=== PATIENT | female | born 1955 | race Caucasian/White ===

== ENCOUNTER 2016-04-24 19:25 | Inpatient (IN) | payer MEDICARE, OTHER ==
[2016-04-24] MEDS ORDERED: NALOXONE 0.4 MG/ML 1 ML VIAL IV STA (19:37)
[2016-04-24] MEDS ORDERED: ETOMIDATE 2 MG/ML 10 ML VIAL IVP STA (19:37)
[2016-04-24] MEDS ORDERED: SUCCINYLCHOLINE CHLORIDE VIAL 200 MG/10 ML VIAL IV STA (19:37)
[2016-04-24] MEDS ORDERED: SODIUM CHLORIDE 0.9% 500 ML IV ONE (19:43)
[2016-04-24] MEDS ORDERED: PROPOFOL 500 MG in EMPTY BAG 1 BAG IV ONE (19:43)
[2016-04-24] MEDS: PROPOFOL 500 MG in EMPTY BAG 1 BAG IV SCH ×3 (19:50→23:25)
--- NOTE | 2016-04-24 19:51 | ED ---
Altered Mental Status HPI - General Chief Complaint: Altered Mental Status Stated Complaint: Mental Status Change Time Seen by Provider: 04/24/16 19:43 Source: EMS, RN notes reviewed Mode of arrival: EMS Limitations: altered mental status - History of Present Illness Initial Comments: This is a 60-year-old female with a history of CHF, hypertension, hyperlipidemia , seizure who presents to the emergency department for mental status changes. Per nursing staff at [facility] she's been having worsening mental status changes over the last few days however last couple of hours she became unresponsive. She had blood work performed 2 days ago that showed a hemoglobin of 7.6 which is down from her baseline of 10. There were no other reported history from the [facility]. The patient did come with a chest x-ray that showed pneumonia but that was back on the of this month. The patient will moan to deep sternal rub and no blood pressure however will not speak or answer questions. She does appear pale at bedside. The patient was intubated immediately upon arrival because of low GCS and inability to protect her airway. - Related Data Home Medications Medication Instructions Recorded Confirmed Magnesium Oxide [Mag-Ox] 400 mg PO DAILY 06/24/14 04/24/16 Acetaminophen Tab [Tylenol] 325 mg PO DAILY PRN 02/24/16 04/24/16 Divalproex ER [Depakote ER] 1,000 mg PO HS 02/24/16 04/24/16 Divalproex ER [Depakote ER] 500 mg PO DAILY 02/24/16 04/24/16 LORazepam [Ativan] 1 mg PO Q6H PRN 02/24/16 04/24/16 Loratadine/Pseudoephedrine 1 tab PO BID PRN 02/24/16 04/24/16 [Alavert D-12 Allergy-Sinus Tab] OLANZapine 20 mg PO HS 02/24/16 04/24/16 Oxybutynin Chloride 5 mg PO BID 02/24/16 04/24/16 fluvoxaMINE [Luvox] 50 mg PO BID 02/24/16 04/24/16 Magnesium Hydroxide [Milk of 2,400 mg PO Q72H PRN 04/24/16 04/24/16 Magnesia] Sennosides-Docusate Sodium 1 tab PO HS 04/24/16 04/24/16 [Senokot-S] Previous Rx's Medication Instructions Recorded Desmopressin [Ddavp] 0.4 mg PO HS #60 tab 12/31/14 Levothyroxine Sodium [Synthroid] 88 mcg PO DAILY #30 tab 12/31/14 Ranitidine HCl 150 mg PO BID #60 tablet 12/31/14 Allergies Allergy/AdvReac Type Severity Reaction Status Date / Time aspirin AdvReac Nausea & Verified 04/24/16 19:29 Vomiting Review of Systems ROS Statement: Those systems with pertinent positive or pertinent negative responses have been documented in the HPI. ROS Other: All systems not noted in ROS Statement are negative. Past Medical History Past Medical History: Asthma, Diabetes Mellitus, Hyperlipidemia, Hypertension, Thyroid Disorder Additional Past Medical History / Comment(s): Parkinson's -like symptoms due to medication, diabetes insipidus. History of Any Multi-Drug Resistant Organisms: None Reported Past Surgical History: Appendectomy Additional Past Surgical History / Comment(s): Poor historian. Additional Medical Hx: Parkinson's Disease; Additional Past Anesthesia/Blood Transfusion Reaction / Comment(s): Unknown Past Psychological History: Schizophrenia Additional Psychological History / Comment(s): Patient receives outpatient counselling and sees Dr. Muse. Smoking Status: Never smoker Past Alcohol Use History: None Reported Additional Past Alcohol Use History / Comment(s): Patient denies any history of smoking, medical marijuana or marijuana use or alcohol use. Patient is single and has no children. Past Drug Use History: None Reported - Past Family History Father Family Medical History: CVA/TIA Additional Family Medical History / Comment(s): Patient states her father in his 80s from his stroke and also her mother in her 80s from a stroke. She has one brother and 2 sisters which she has no contact with. Patient has a guardian Analilia Blood. General Exam - General Exam Comments Initial Comments: Constitutional: Awake alert Appears comfortable, patient appears pale Head: Normocephalic atraumatic Eyes: no conjunctival injection, there is conjunctival pallor No scleral icterus EOMI Neck: No JVD Supple Heart: Regular rate rhythm normal S1-S2 no murmurs Lungs: Clear to auscultation bilaterally No wheezing No rales Abdomen: Soft nondistended nontender Extremities: Non edematous DP pulses intact Radial pulses intact Neuro: Patient is minimally responsive to sternal rub. She has a GCS of 5-6 No focal neurologic deficits Psych: Appropriate mood and affect Limitations: altered mental status Course Vital Signs 04/24/16 04/24/16 04/24/16 19:29 19:42 19:58 Temperature 97.2 F L Pulse Rate 84 84 80 Respiratory 16 14 14 Rate Blood Pressure 97/51 128/58 122/70 O2 Sat by Pulse 90 L 100 99 Oximetry 04/24/16 04/24/16 04/24/16 20:08 20:13 21:54 Temperature Pulse Rate 84 88 83 Respiratory 14 14 14 Rate Blood Pressure 97/55 109/67 96/53 O2 Sat by Pulse 100 100 100 Oximetry - Reevaluation(s) Reevaluation #1: 04/24/16 19:52 EKG showing normal sinus rhythm with a rate of 83. No ST segment changes or T- wave inversions. QTC is 408. Other intervals are normal. No ectopy. Procedures - Intubation Time Out Performed: Yes Sedative: Etomidate Mg Given: 10 Paralytic: Succinylcholine Mg Given: 100 Laryngoscope: Genevieve Size: 4 ET Tube Size: 7.5 ET Tube Uncuffed: No Tube Secured Depth (cm): 22 Tube Secured Location: lips Tube Placement Confirmation: visualized tube passing through cords, equal breath sounds bilaterally, no breath sounds over epigastrium, confirmation by capnometry Patient Tolerated Procedure: well Intubation Complications: none Medical Decision Making - Medical Decision Making This is a 60-year-old female presents emergency department for encephalopathy. She is found to be anemic with a hemoglobin of 6. She is guaiac negative. She was given 2 units of blood. She is currently on the ventilator because of airway protection your encephalopathy. I spoke with Dr. Gibbs except admission. Dr. Villalta was updated that the patient will go to ICU. - Lab Data Result diagrams: 04/24/16 20:05 04/24/16 20:05 Lab Results 04/24/16 04/24/16 04/24/16 Range/Units 20:05 20:05 20:05 WBC (3.8-10.6) k/uL RBC (3.80-5.40) m/uL Hgb (11.4-16.0) gm/dL Hct (34.0-46.0) % MCV (80.0-100.0) fL MCH (25.0-35.0) pg MCHC (31.0-37.0) g/dL RDW (11.5-15.5) % Plt Count (150-450) k/uL Neutrophils % (Manual) % Band Neutrophils % % Lymphocytes % (Manual) % Monocytes % (Manual) % Metamyelocytes % % Myelocytes % % Promyelocytes % % Neutrophils # (Manual) (1.3-7.7) k/uL Lymphocytes # (Manual) (1.0-4.8) k/uL Monocytes # (Manual) (0-1.0) k/uL Nucleated RBCs (0-0) /100 WBC Polychromasia Hypochromasia Poikilocytosis Basophilic Stippling Anisocytosis Macrocytosis PT 11.8 (9.0-12.0) sec INR 1.2 (<1.1) APTT 23.4 (22.0-30.0) sec Sample Site ABG pH (7.35-7.45) ABG pCO2 (35-45) mmHg ABG pO2 (83-108) mmHg ABG HCO3 (21-25) mmol/L ABG Total CO2 (19-24) mmol/L ABG O2 Saturation (94-97) % ABG Base Excess mmol/L FiO2 % Sodium 134 L (137-145) mmol/L Potassium 5.9 H (3.5-5.1) mmol/L Chloride 89 L (98-107) mmol/L Carbon Dioxide 38 H (22-30) mmol/L Anion Gap 7 mmol/L BUN 48 H (7-17) mg/dL Creatinine 0.80 (0.52-1.04) mg/dL Est GFR (MDRD) Af Amer >60 (>60 ml/min/1.73 sqM) Est GFR (MDRD) Non-Af >60 (>60 ml/min/1.73 sqM) Glucose 114 H (74-99) mg/dL Plasma Lactic Acid Caleb (0.7-2.0) mmol/L Calcium 9.2 (8.4-10.2) mg/dL Magnesium 2.9 H (1.6-2.3) mg/dL Total Bilirubin 1.2 (0.2-1.3) mg/dL AST 19 (14-36) U/L ALT 15 (9-52) U/L Alkaline Phosphatase 84 (38-126) U/L CK-MB (CK-2) 0.5 (0.0-2.4) ng/mL Troponin I (0.000-0.034) ng/mL NT-Pro-B Natriuret Pep pg/mL Total Protein 8.3 H (6.3-8.2) g/dL Albumin 2.7 L (3.5-5.0) g/dL Lipase 35 (23-300) U/L Urine Color Urine Appearance (Clear) Urine pH (5.0-8.0) Ur Specific Hope (1.001-1.035) Urine Protein (Negative) Urine Glucose (UA) (Negative) Urine Ketones (Negative) Urine Blood (Negative) Urine Nitrate (Negative) Urine Bilirubin (Negative) Urine Urobilinogen (<2.0) mg/dL Ur Leukocyte Esterase (Negative) Urine RBC (0-5) /hpf Urine WBC (0-5) /hpf Urine Bacteria (None) /hpf Hyaline Casts (0-2) /lpf Urine Mucus (None) /hpf Stool Occult Blood (Negative) Salicylates <1.0 mg/dL Urine Opiates Screen (NotDetected) Ur Oxycodone Screen (NotDetected) Urine Methadone Screen (NotDetected) Ur Propoxyphene Screen (NotDetected) Acetaminophen <10.0 ug/mL Ur Barbiturates Screen (NotDetected) U Tricyclic Antidepress (NotDetected) Ur Phencyclidine Scrn (NotDetected) Ur Amphetamines Screen (NotDetected) U Methamphetamines Scrn (NotDetected) U Benzodiazepines Scrn (NotDetected) Urine Cocaine Screen (NotDetected) U Marijuana (THC) Screen (NotDetected) 04/24/16 04/24/16 04/24/16 Range/Units 20:05 20:05 20:05 WBC 11.1 H (3.8-10.6) k/uL RBC 1.76 L (3.80-5.40) m/uL Hgb 6.0 L* D (11.4-16.0) gm/dL Hct 18.2 L* (34.0-46.0) % MCV 103.7 H (80.0-100.0) fL MCH 34.1 (25.0-35.0) pg MCHC 32.9 (31.0-37.0) g/dL RDW 21.1 H (11.5-15.5) % Plt Count 123 L (150-450) k/uL Neutrophils % (Manual) 57.5 % Band Neutrophils % 8.5 % Lymphocytes % (Manual) 15.0 % Monocytes % (Manual) 4.5 % Metamyelocytes % 11.0 % Myelocytes % 3.0 % Promyelocytes % 0.5 % Neutrophils # (Manual) 7.3 (1.3-7.7) k/uL Lymphocytes # (Manual) 1.7 (1.0-4.8) k/uL Monocytes # (Manual) 0.5 (0-1.0) k/uL Nucleated RBCs 19 H (0-0) /100 WBC Polychromasia Present Hypochromasia Slight Poikilocytosis Slight Basophilic Stippling Present Anisocytosis Moderate Macrocytosis Marked PT (9.0-12.0) sec INR (<1.1) APTT (22.0-30.0) sec Sample Site ABG pH (7.35-7.45) ABG pCO2 (35-45) mmHg ABG pO2 (83-108) mmHg ABG HCO3 (21-25) mmol/L ABG Total CO2 (19-24) mmol/L ABG O2 Saturation (94-97) % ABG Base Excess mmol/L FiO2 % Sodium (137-145) mmol/L Potassium (3.5-5.1) mmol/L Chloride (98-107) mmol/L Carbon Dioxide (22-30) mmol/L Anion Gap mmol/L BUN (7-17) mg/dL Creatinine (0.52-1.04) mg/dL Est GFR (MDRD) Af Amer (>60 ml/min/1.73 sqM) Est GFR (MDRD) Non-Af (>60 ml/min/1.73 sqM) Glucose (74-99) mg/dL Plasma Lactic Acid Caleb 0.9 (0.7-2.0) mmol/L Calcium (8.4-10.2) mg/dL Magnesium (1.6-2.3) mg/dL Total Bilirubin (0.2-1.3) mg/dL AST (14-36) U/L ALT (9-52) U/L Alkaline Phosphatase (38-126) U/L CK-MB (CK-2) (0.0-2.4) ng/mL Troponin I <0.012 (0.000-0.034) ng/mL NT-Pro-B Natriuret Pep pg/mL Total Protein (6.3-8.2) g/dL Albumin (3.5-5.0) g/dL Lipase (23-300) U/L Urine Color Urine Appearance (Clear) Urine pH (5.0-8.0) Ur Specific Hope (1.001-1.035) Urine Protein (Negative) Urine Glucose (UA) (Negative) Urine Ketones (Negative) Urine Blood (Negative) Urine Nitrate (Negative) Urine Bilirubin (Negative) Urine Urobilinogen (<2.0) mg/dL Ur Leukocyte Esterase (Negative) Urine RBC (0-5) /hpf Urine WBC (0-5) /hpf Urine Bacteria (None) /hpf Hyaline Casts (0-2) /lpf Urine Mucus (None) /hpf Stool Occult Blood (Negative) Salicylates mg/dL Urine Opiates Screen (NotDetected) Ur Oxycodone Screen (NotDetected) Urine Methadone Screen (NotDetected) Ur Propoxyphene Screen (NotDetected) Acetaminophen ug/mL Ur Barbiturates Screen (NotDetected) U Tricyclic Antidepress (NotDetected) Ur Phencyclidine Scrn (NotDetected) Ur Amphetamines Screen (NotDetected) U Methamphetamines Scrn (NotDetected) U Benzodiazepines Scrn (NotDetected) Urine Cocaine Screen (NotDetected) U Marijuana (THC) Screen (NotDetected) 04/24/16 04/24/16 04/24/16 Range/Units 20:05 20:15 20:15 WBC (3.8-10.6) k/uL RBC (3.80-5.40) m/uL Hgb (11.4-16.0) gm/dL Hct (34.0-46.0) % MCV (80.0-100.0) fL MCH (25.0-35.0) pg MCHC (31.0-37.0) g/dL RDW (11.5-15.5) % Plt Count (150-450) k/uL Neutrophils % (Manual) % Band Neutrophils % % Lymphocytes % (Manual) % Monocytes % (Manual) % Metamyelocytes % % Myelocytes % % Promyelocytes % % Neutrophils # (Manual) (1.3-7.7) k/uL Lymphocytes # (Manual) (1.0-4.8) k/uL Monocytes # (Manual) (0-1.0) k/uL Nucleated RBCs (0-0) /100 WBC Polychromasia Hypochromasia Poikilocytosis Basophilic Stippling Anisocytosis Macrocytosis PT (9.0-12.0) sec INR (<1.1) APTT (22.0-30.0) sec Sample Site ABG pH (7.35-7.45) ABG pCO2 (35-45) mmHg ABG pO2 (83-108) mmHg ABG HCO3 (21-25) mmol/L ABG Total CO2 (19-24) mmol/L ABG O2 Saturation (94-97) % ABG Base Excess mmol/L FiO2 % Sodium (137-145) mmol/L Potassium (3.5-5.1) mmol/L Chloride (98-107) mmol/L Carbon Dioxide (22-30) mmol/L Anion Gap mmol/L BUN (7-17) mg/dL Creatinine (0.52-1.04) mg/dL Est GFR (MDRD) Af Amer (>60 ml/min/1.73 sqM) Est GFR (MDRD) Non-Af (>60 ml/min/1.73 sqM) Glucose (74-99) mg/dL Plasma Lactic Acid Caleb (0.7-2.0) mmol/L Calcium (8.4-10.2) mg/dL Magnesium (1.6-2.3) mg/dL Total Bilirubin (0.2-1.3) mg/dL AST (14-36) U/L ALT (9-52) U/L Alkaline Phosphatase (38-126) U/L CK-MB (CK-2) (0.0-2.4) ng/mL Troponin I (0.000-0.034) ng/mL NT-Pro-B Natriuret Pep 9430 pg/mL Total Protein (6.3-8.2) g/dL Albumin (3.5-5.0) g/dL Lipase (23-300) U/L Urine Color Yellow Urine Appearance Clear (Clear) Urine pH 6.0 (5.0-8.0) Ur Specific Hope 1.015 (1.001-1.035) Urine Protein 1+ H (Negative) Urine Glucose (UA) Negative (Negative) Urine Ketones Negative (Negative) Urine Blood Negative (Negative) Urine Nitrate Negative (Negative) Urine Bilirubin Negative (Negative) Urine Urobilinogen 12.0 (<2.0) mg/dL Ur Leukocyte Esterase Negative (Negative) Urine RBC 1 (0-5) /hpf Urine WBC 2 (0-5) /hpf Urine Bacteria Rare H (None) /hpf Hyaline Casts 3 H (0-2) /lpf Urine Mucus Rare H (None) /hpf Stool Occult Blood Negative (Negative) Salicylates mg/dL Urine Opiates Screen Detected H (NotDetected) Ur Oxycodone Screen Not Detected (NotDetected) Urine Methadone Screen Not Detected (NotDetected) Ur Propoxyphene Screen Not Detected (NotDetected) Acetaminophen ug/mL Ur Barbiturates Screen Not Detected (NotDetected) U Tricyclic Antidepress Not Detected (NotDetected) Ur Phencyclidine Scrn Not Detected (NotDetected) Ur Amphetamines Screen Not Detected (NotDetected) U Methamphetamines Scrn Not Detected (NotDetected) U Benzodiazepines Scrn Not Detected (NotDetected) Urine Cocaine Screen Not Detected (NotDetected) U Marijuana (THC) Screen Not Detected (NotDetected) 04/24/16 Range/Units 20:30 WBC (3.8-10.6) k/uL RBC (3.80-5.40) m/uL Hgb (11.4-16.0) gm/dL Hct (34.0-46.0) % MCV (80.0-100.0) fL MCH (25.0-35.0) pg MCHC (31.0-37.0) g/dL RDW (11.5-15.5) % Plt Count (150-450) k/uL Neutrophils % (Manual) % Band Neutrophils % % Lymphocytes % (Manual) % Monocytes % (Manual) % Metamyelocytes % % Myelocytes % % Promyelocytes % % Neutrophils # (Manual) (1.3-7.7) k/uL Lymphocytes # (Manual) (1.0-4.8) k/uL Monocytes # (Manual) (0-1.0) k/uL Nucleated RBCs (0-0) /100 WBC Polychromasia Hypochromasia Poikilocytosis Basophilic Stippling Anisocytosis Macrocytosis PT (9.0-12.0) sec INR (<1.1) APTT (22.0-30.0) sec Sample Site rbrach ABG pH 7.55 H (7.35-7.45) ABG pCO2 42 (35-45) mmHg ABG pO2 314 H (83-108) mmHg ABG HCO3 36 H (21-25) mmol/L ABG Total CO2 38 H (19-24) mmol/L ABG O2 Saturation 100.0 H (94-97) % ABG Base Excess 12.6 mmol/L FiO2 100 % Sodium (137-145) mmol/L Potassium (3.5-5.1) mmol/L Chloride (98-107) mmol/L Carbon Dioxide (22-30) mmol/L Anion Gap mmol/L BUN (7-17) mg/dL Creatinine (0.52-1.04) mg/dL Est GFR (MDRD) Af Amer (>60 ml/min/1.73 sqM) Est GFR (MDRD) Non-Af (>60 ml/min/1.73 sqM) Glucose (74-99) mg/dL Plasma Lactic Acid Caleb (0.7-2.0) mmol/L Calcium (8.4-10.2) mg/dL Magnesium (1.6-2.3) mg/dL Total Bilirubin (0.2-1.3) mg/dL AST (14-36) U/L ALT (9-52) U/L Alkaline Phosphatase (38-126) U/L CK-MB (CK-2) (0.0-2.4) ng/mL Troponin I (0.000-0.034) ng/mL NT-Pro-B Natriuret Pep pg/mL Total Protein (6.3-8.2) g/dL Albumin (3.5-5.0) g/dL Lipase (23-300) U/L Urine Color Urine Appearance (Clear) Urine pH (5.0-8.0) Ur Specific Hope (1.001-1.035) Urine Protein (Negative) Urine Glucose (UA) (Negative) Urine Ketones (Negative) Urine Blood (Negative) Urine Nitrate (Negative) Urine Bilirubin (Negative) Urine Urobilinogen (<2.0) mg/dL Ur Leukocyte Esterase (Negative) Urine RBC (0-5) /hpf Urine WBC (0-5) /hpf Urine Bacteria (None) /hpf Hyaline Casts (0-2) /lpf Urine Mucus (None) /hpf Stool Occult Blood (Negative) Salicylates mg/dL Urine Opiates Screen (NotDetected) Ur Oxycodone Screen (NotDetected) Urine Methadone Screen (NotDetected) Ur Propoxyphene Screen (NotDetected) Acetaminophen ug/mL Ur Barbiturates Screen (NotDetected) U Tricyclic Antidepress (NotDetected) Ur Phencyclidine Scrn (NotDetected) Ur Amphetamines Screen (NotDetected) U Methamphetamines Scrn (NotDetected) U Benzodiazepines Scrn (NotDetected) Urine Cocaine Screen (NotDetected) U Marijuana (THC) Screen (NotDetected) Disposition Clinical Impression: Encephalopathy, Anemia, Ventilator dependence Disposition: ADMITTED IP TO THIS [facility] Condition: Critical
[2016-04-24 20:23] LABS: Anisocytosis Moderate; CH 34.1; CHCM 33.2; HDW 3.63; Hypochromasia Slight; Immature Gran Flag Marked; MCH 34.1 pg (25.0-35.0); MCHC 32.9 g/dL (31.0-37.0); MCV 103.7 fL (80.0-100.0); Macrocytosis Marked; Mean Platelet Volume 6.9; Poikilocytosis Slight; RBC 1.76 m/uL (3.80-5.40); RDW 21.1 % (11.5-15.5); WBC (Perox) 11.82
[2016-04-24 20:25] LABS: HCT 18.2 % (34.0-46.0)
[2016-04-24 20:28] LABS: INR 1.2 (<1.1); Partial Thromboplastin Time 23.4 sec (22.0-30.0); Prothrombin Time 11.8 sec (9.0-12.0)
[2016-04-24 20:35] LABS: Appearance,Urine Clear (Clear); Bacteria,Urine Rare /hpf; Bilirubin,Urine Negative (Negative); Glucose,Urine (UA) Negative (Negative); Ketones,Urine Negative (Negative); Leukocyte Esterase,Urine Negative (Negative); Mucus,Urine Rare /hpf; Nitrite,Urine Negative (Negative); Particle Count 5771; Protein,Urine 1+ (Negative); RBC,Urine 1 /hpf (0-5); Specific Gravity,Urine 1.015 (1.001-1.035); UA Billing (MACRO vs. MICRO) MICRO; WBC,Urine 2 /hpf (0-5)
[2016-04-24 20:49] LABS: ABG HCO3 36 mmol/L (21-25); ABG PCO2 42 mmHg (35-45); ABG PH 7.55 (7.35-7.45); ABG PO2 314 mmHg (83-108); ABG TCO2 38 mmol/L (19-24)
[2016-04-24 20:49] LABS: ALT 15 U/L (9-52); AST 19 U/L (14-36); Acetaminophen <10.0 ug/mL; Alkaline Phosphatase 84 U/L (38-126); Anion Gap 7 mmol/L; Blood Urea Nitrogen 48 mg/dL (7-17); Calcium 9.2 mg/dL (8.4-10.2); Carbon Dioxide 38 mmol/L (22-30); Chloride 89 mmol/L (98-107); Glucose 114 mg/dL (74-99); Magnesium 2.9 mg/dL (1.6-2.3); Non-African American GFR(MDRD) >60 (>60 ml/min/1.73 sqM); Potassium 5.9 mmol/L (3.5-5.1); Salicylate <1.0 mg/dL; Sodium 134 mmol/L (137-145); Total Bilirubin 1.2 mg/dL (0.2-1.3); Total Protein 8.3 g/dL (6.3-8.2)
[2016-04-24 20:50] LABS: ABG Base Excess 12.6 mmol/L
[2016-04-24 20:55] LABS: Add Differential Manual Differential
--- NOTE | 2016-04-24 20:58 | XR ---
EXAMINATION TYPE: XR chest 1V portable DATE OF EXAM: 04/24/2016 8:41 PM COMPARISON: 02/28/2016 HISTORY: Mental status changes. Tube placement TECHNIQUE: Single frontal view of the chest is obtained. FINDINGS: Endotracheal tube is in good position. There is a nasogastric tube in good position. The l ungs are clear of consolidation. There is no gross heart failure. Heart size is normal. There are meme st leads. IMPRESSION: Endotracheal tube is in good position. No pulmonary consolidation or heart failure.
[2016-04-24 21:00] LABS: Band Neutrophils % 8.5 %; Nucleated Red Blood Cells 19 /100 WBC (0-0); Promyelocytes % 0.5 %; Total Cells Counted 200; WBC 11.1 k/uL (3.8-10.6)
[2016-04-24 21:01] LABS: Polychromasia Present
[2016-04-24 21:02] LABS: Basophilic Stippling Present
--- NOTE | 2016-04-24 21:19 | CT ---
EXAMINATION TYPE: CT brain wo con DATE OF EXAM: 04/24/2016 9:08 PM COMPARISON: 02/24/2016 HISTORY: Patient found unresponsive. CT DLP: 1061.70 mGycm Automated exposure control for dose reduction was used. FINDINGS: There is diffuse cerebral cortical atrophy. There is no mass effect nor midline shift. There is no si gn of intracranial hemorrhage. The calvarium is intact. IMPRESSION: There is moderate diffuse atrophy. No acute intracranial abnormality. No change.
[2016-04-24] MEDS: SODIUM CHLORIDE 0.9% 1,000 ML IV SCH (21:28)
[2016-04-24] MEDS ORDERED: NALOXONE 0.4 MG/ML 1 ML VIAL IV PRN (22:03)
[2016-04-24] MEDS ORDERED: DEXTROSE 50%-WATER 50 ML SYRINGE IVP STA (22:28)
[2016-04-24] MEDS: INSULIN REGULAR 100 UNIT/ML VIAL IV ONE ×2 (22:34→23:47)
[2016-04-24] MEDS ORDERED: CALCIUM GLUCONATE 1,000 MG in SODIUM CHLORIDE 0.9% 100 ML IVPB ONE (22:45)
[2016-04-24 23:25] LABS: Glucose,Whole Blood 142 mg/dL (75-99)
[2016-04-25] MEDS: IPRATROPIUM-ALBUTEROL 3 ML NEB INHALATION SCH ×6 (03:04→23:17)
[2016-04-25 05:10] LABS: ABG Base Excess 4.2 mmol/L; ABG HCO3 27 mmol/L (21-25); ABG PCO2 35 mmHg (35-45); ABG PO2 105 mmHg (83-108); ABG TCO2 28 mmol/L (19-24)
[2016-04-25] MEDS: PROPOFOL 500 MG in EMPTY BAG 1 BAG IV SCH ×3 (05:14→23:40)
--- NOTE | 2016-04-25 07:19 | XR ---
EXAMINATION TYPE: XR chest 1V portable DATE OF EXAM: 04/25/2016 6:38 AM CLINICAL HISTORY: Difficulty breathing progress study. TECHNIQUE: Single AP portable upright view of the chest is obtained. COMPARISON: Chest x-ray from one day earlier and older x-ray February 24, 2016. FINDINGS: An endotracheal tube and orogastric tube are stable in appearance. Lungs remain clear with out pleural effusion or pneumothorax seen bilaterally. Cardiac silhouette size is stable and at upper limits of normal with prominent aortic knob and ectatic visualized aorta. Bilateral hilar prominence may reflect product of underlying pulmonary artery hypertension. Osseous structures are intact. IMPRESSION: Overall stable findings, no acute pulmonary process is evident.
[2016-04-25 08:09] LABS: Glucose,Whole Blood 115 mg/dL (75-99)
[2016-04-25] MEDS: INSULIN LISPRO (humaLOG) 300 UNIT/3 ML VIAL SQ SCH ×3 (08:21→18:45)
[2016-04-25] MEDS: CHLORHEXIDINE GLUCONATE 15 ML CUP MUCOUS MEM SCH ×2 (08:56→20:53)
[2016-04-25] MEDS: PANTOPRAZOLE 40 MG/10 ML VIAL IV SCH (08:56)
[2016-04-25 09:07] LABS: INR 1.2 (<1.1); Partial Thromboplastin Time 24.8 sec (22.0-30.0)
[2016-04-25 09:26] LABS: Anion Gap 8 mmol/L; Blood Urea Nitrogen 38 mg/dL (7-17); Carbon Dioxide 32 mmol/L (22-30); Chloride 96 mmol/L (98-107); Glucose 103 mg/dL (74-99); Magnesium 2.5 mg/dL (1.6-2.3); Non-African American GFR(MDRD) >60 (>60 ml/min/1.73 sqM); Phosphorous 3.4 mg/dL (2.5-4.5); Potassium 4.6 mmol/L (3.5-5.1); Sodium 136 mmol/L (137-145)
--- NOTE | 2016-04-25 09:56 | P.CNPUL ---
History of Present Illness Consult date: 04/25/16 Reason for consult: other Chief complaint: Respiratory failure mental status changes History of present illness: The information dictated is primarily obtained from the ER record and speaking to the ER physician yesterday. The patient's currently intubated and sedated and no history is obtained from the patient. This is a 60-year-old female with history of heart failure hypertension hyperlipidemia and seizures presented to the emergency department with mental status changes. She apparently was having worsening mental status over the last few days and she became unresponsive. She apparently had a CBC performed a couple days prior to her present presentation to the ER and at that time her hemoglobin of 7.6. Her baseline is 10. She apparently was a resident at [facility] before she came to the ER. The patient only moan to deep sternal rub and her blood pressure was poor for that reason she was intubated in the ER by the ER physician. Her past medical history is positive for asthma diabetes hyperlipidemia hypertension hypothyroidism and Parkinson's disease. She also apparently has history of diabetes insipidus. Review of Systems ROS unobtainable: due to endotracheal tube, due to mental status Past Medical History Past Medical History: Asthma, Diabetes Mellitus, Hyperlipidemia, Hypertension, Thyroid Disorder Additional Past Medical History / Comment(s): Parkinson's -like symptoms due to medication, diabetes insipidus. History of Any Multi-Drug Resistant Organisms: None Reported Past Surgical History: Appendectomy Additional Past Surgical History / Comment(s): Poor historian. Additional Medical Hx: Parkinson's Disease; Additional Past Anesthesia/Blood Transfusion Reaction / Comment(s): Unknown Past Psychological History: Schizophrenia Additional Psychological History / Comment(s): Patient receives outpatient counselling and sees Dr. Muse. Smoking Status: Never smoker Past Alcohol Use History: None Reported Additional Past Alcohol Use History / Comment(s): Patient denies any history of smoking, medical marijuana or marijuana use or alcohol use. Patient is single and has no children. Past Drug Use History: None Reported - Past Family History Father Family Medical History: CVA/TIA Additional Family Medical History / Comment(s): Patient states her father in his 80s from his stroke and also her mother in her 80s from a stroke. She has one brother and 2 sisters which she has no contact with. Patient has a guardian Analilia Blood. Medications and Allergies Home Medications Medication Instructions Recorded Confirmed Type Magnesium Oxide [Mag-Ox] 400 mg PO DAILY 06/24/14 04/24/16 History Acetaminophen Tab [Tylenol] 325 mg PO DAILY PRN 02/24/16 04/24/16 History Divalproex ER [Depakote ER] 1,000 mg PO HS 02/24/16 04/24/16 History Divalproex ER [Depakote ER] 500 mg PO DAILY 02/24/16 04/24/16 History LORazepam [Ativan] 1 mg PO Q6H PRN 02/24/16 04/24/16 History Loratadine/Pseudoephedrine 1 tab PO BID PRN 02/24/16 04/24/16 History [Alavert D-12 Allergy-Sinus Tab] OLANZapine 20 mg PO HS 02/24/16 04/24/16 History Oxybutynin Chloride 5 mg PO BID 02/24/16 04/24/16 History fluvoxaMINE [Luvox] 50 mg PO BID 02/24/16 04/24/16 History Magnesium Hydroxide [Milk of 2,400 mg PO Q72H PRN 04/24/16 04/24/16 History Magnesia] Sennosides-Docusate Sodium 1 tab PO HS 04/24/16 04/24/16 History [Senokot-S] Allergies Allergy/AdvReac Type Severity Reaction Status Date / Time aspirin AdvReac Nausea & Verified 04/24/16 19:29 Vomiting Physical Exam Osteopathic Statement: *. No significant issues noted on an osteopathic structural exam other than those noted in the History and Physical/Consult. Vitals: Vital Signs Temp Pulse Resp BP Pulse Ox 04/25/16 09:23 99.7 F H 96 22 97/43 100 04/25/16 09:13 100.4 F H 98 22 79/42 98 04/25/16 07:46 90 04/25/16 07:31 90 04/25/16 07:25 99.2 F 94 15 106/51 98 04/25/16 07:00 99 16 95/49 98 04/25/16 06:00 89 15 94/48 100 04/25/16 05:05 98.3 F 87 16 91/41 04/25/16 05:00 93 15 89/42 99 04/25/16 04:35 98.8 F 87 15 96/42 100 04/25/16 04:25 99.1 F 88 15 103/42 100 04/25/16 04:00 99.4 F 90 15 85/49 100 04/25/16 03:08 86 04/25/16 03:00 86 14 93/53 99 04/25/16 02:57 85 04/25/16 02:30 87 14 87/51 99 04/25/16 02:00 86 14 103/41 100 04/25/16 01:30 86 14 93/45 100 04/25/16 01:00 85 14 93/48 100 04/25/16 00:30 80 14 82/41 100 04/25/16 00:00 99.1 F 82 14 87/45 100 04/24/16 23:33 86 14 101/58 100 04/24/16 23:30 87 14 93/47 100 04/24/16 23:27 99.3 F 106 H 14 04/24/16 22:58 86 14 72/35 100 Intake and Output 04/24/16 04/25/16 04/25/16 22:59 06:59 14:59 Intake Total 714.831 324.911 Output Total 346 Balance 368.831 324.911 Intake: Intake, IV Titration 714.831 14.911 Amount Calcium Gluconate 1,000 100 mg In Sodium Chloride 0.9 % 100 ml @ 100 mls/hr IVPB ONCE ONE Rx#: [id number] Propofol 500 mg In Empty 14.831 14.911 Bag 1 bag @ Titrate IV . Q0M [facility] Rx#:[id number] Sodium Chloride 0.9% 1, 600 000 ml @ 75 mls/hr IV . [id number] [facility] Rx#:[id number] Blood Product 0 310 Rc Pheresis As-3 Unit 0 [id number] Rc Pheresis As-3 Unit 0 310 [id number] Output: Urine 346 Other: Voiding Method Indwelling Catheter Weight 115.5 kg No acute distress. She seemed to be interacting well with the ventilator. She is an orally placed endotracheal tube and the NG tube. HEENT examination is grossly unremarkable. Tubes are noted. Mucous membranes are moist. Supple. Full range of motion. No adenopathy. Cardiovascular examination reveals regular rhythm rate S1-S2 normal. No murmur. Lungs reveal clear breath sounds. No wheezes or rhonchi. Abdomen soft bowel sounds are heard. Extremities are intact. Results - Laboratory Findings CBC and BMP: 04/24/16 20:05 04/25/16 08:28 ABG ABG pH 7.50 (7.35-7.45) H 04/25/16 04:56 ABG pCO2 35 mmHg (35-45) 04/25/16 04:56 ABG pO2 105 mmHg (83-108) 04/25/16 04:56 ABG O2 Saturation 99.0 % (94-97) H 04/25/16 04:56 PT/INR, D-dimer PT 12.0 sec (9.0-12.0) 04/25/16 08:28 INR 1.2 (<1.1) 04/25/16 08:28 Abnormal lab findings: Abnormal Labs 04/24/16 04/25/16 04/25/16 23:24 00:20 04:56 ABG pH 7.50 H ABG HCO3 27 H ABG Total CO2 28 H ABG O2 Saturation 99.0 H Sodium Chloride Carbon Dioxide BUN Glucose POC Glucose (mg/dL) 142 H Magnesium Crossmatch See Detail 04/25/16 08:28 ABG pH ABG HCO3 ABG Total CO2 ABG O2 Saturation Sodium 136 L Chloride 96 L Carbon Dioxide 32 H BUN 38 H Glucose 103 H POC Glucose (mg/dL) Magnesium 2.5 H Crossmatch - Diagnostic Findings Chest x-ray: image reviewed (Labs x-rays and medications all are reviewed.) Assessment and Plan (1) Diabetes Status: Acute (2) Hyperlipidemia Status: Acute (3) Hypertension Status: Acute (4) Diabetes insipidus Status: Acute (5) Anemia Status: Acute (6) Encephalopathy Status: Acute (7) Ventilator dependence Status: Acute Plan: Plan Brianna we'll go ahead and come up with the formulation for enteral nutrition on this patient. She apparently not been eating well prior to admission. This apparently was occurring for about 2 or 3 days before hand. In addition, I'll review all her medications. She apparently was taking DDAVP at 0.4 mg every night orally. We'll have to replace that. She is also on a number of other medications that will have to replace. We may need to put lines in her including an art line and central line. Prognosis is guarded. We'll make sure she is on updrafts. Currently she is getting appointment 9 IV at 75 mL an hour. She's getting propofol at 7 mics per kilogram per minute. Her vent settings include the assist control mode rate of 14 to be bumped up to 22 tidal volume of 550 to be reduced to 350 and FiO2 40% and 5 of PEEP. On those settings, the pO2 was 105 the pCO2 was 35 and a pH of 7.5. She has received will receive 2 units of PRBCs. Time with Patient: Greater than 30
[2016-04-25] MEDS ORDERED: CISATRACURIUM 2 MG/ML 5 ML VIAL IV ONE ×2 (10:30→10:36)
[2016-04-25] MEDS: ENOXAPARIN 40 MG/0.4 ML SYRINGE SQ SCH (11:11)
[2016-04-25] MEDS ORDERED: ACETAMINOPHEN IV (For NPO) 1,000 MG in EMPTY BAG 1 BAG IVPB PRN (11:27)
--- NOTE | 2016-04-25 11:27 | XR ---
EXAMINATION TYPE: XR chest 1V confirm line [facility] DATE OF EXAM: 04/25/2016 11:19 AM COMPARISON: Chest x-ray from yesterday. HISTORY: Line placement. TECHNIQUE: Single frontal view of the chest is obtained. FINDINGS: There is new left internal jugular central venous catheter with tip in right atrium. There is persistent mild cardiomegaly and new mild central vascular congestion. Underlying bilateral hilar prominence is redemonstrated suspicious for underlying pulmonary artery hypertension. No large pleura l effusion or pneumothorax is seen bilaterally. The osseous structures are intact. IMPRESSION: 1. New left internal jugular central venous catheter with tip in right atrium. No pneumothorax is se en after catheter placement. 2. Cardiomegaly with suspected new mild central vascular congestion, consider CHF exacerbation.
[2016-04-25 12:21] LABS: Glucose,Whole Blood 107 mg/dL (75-99)
[2016-04-25] MEDS: SODIUM CHLORIDE 0.9% 1,000 ML IV SCH (14:01)
--- NOTE | 2016-04-25 16:52 | HP ---
DATE OF ADMISSION: 04/24/2016 PRESENTING COMPLAINT: Change in mental status. HISTORY OF PRESENTING COMPLAINT: This is a 60-year-old patient, a resident of an [facility], whose chronic stable medical conditions are known to be congestive heart failure, hypertension, hyperlipidemia, seizure activity. The patient is a resident of [facility]. She was sent over, as she had declining mental status over the last few days and was becoming less responsive. Patient's hemoglobin had dropped to 7.6 from a baseline of 10. Patient was very less responsive in the ER. Patient had to be intubated to protect her airways. Review of systems cannot be done; patient is intubated. PAST MEDICAL HISTORY: 1. Diabetes mellitus, type 2. 2. Hyperlipidemia. 3. Hypertension. 4. Hypothyroidism. 5. Medication-associated Parkinson's-like disease. 6. Diabetes insipidus. 7. Schizophrenia. PAST SURGICAL HISTORY: Appendectomy. SOCIAL HISTORY: Resident of [facility]. No history of smoking or alcohol. FAMILY HISTORY: Stroke. Patient's legal guardian is Analilia Blood. HOME MEDICATIONS: 1. Luvox 50 mg b.i.d. 2. Senokot-S one tablet p.o. at bedtime. 3. Zantac 150 mg p.o. b.i.d. 4. Oxybutynin 5 mg p.o. b.i.d. 5. Olanzapine 20 mg p.o. at bedtime. 6. Magnesium oxide 400 mg p.o. daily. 7. Alavert D12 one tablet b.i.d. p.r.n. 8. Synthroid 88 mcg a day. 9. Ativan 1 mg p.o. every 6 p.r.n. 10. Depakote ER 1000 mg p.o. at bedtime. 11. Depakote ER 500 mg p.o. daily. 12. DDAVP 0.4 mg p.o. at bedtime. ALLERGIES: ASPIRIN. PHYSICAL EXAMINATION: VITAL SIGNS ON PRESENTATION: Temperature 97.2, pulse 84, respiration 16, blood pressure 97/51, pulse ox 98% on room air. GENERAL APPEARANCE: Well built; BMI of 41.1. Lying in bed. Intubated. EYES: Pupils equal. Conjunctivae normal. HEENT: External appearance of nose and ears normal. Oral cavity: endotracheal tube in place. NECK: JVD unable to assess. Mass not palpable. RESPIRATORY: Effort normal. LUNGS: Diminished breath sounds. CARDIOVASCULAR: First and second sounds normal. No edema. ABDOMEN: Soft, nontender. Liver and spleen not palpable. LYMPHATIC: No lymph node palpable in neck or axillae. PSYCHIATRY: Unable to assess. NEUROLOGICAL: Pupils are equal and reacting. Plantars are downgoing. INVESTIGATIONS: White count 11.1, hemoglobin 6, platelets 123. Potassium 5.9. BUN 48, creatinine 0.80. Urine drug screen positive for opiates. Patient's hemoglobin was 10.7 on 02/28/16. Postoperatively patient's potassium was 5.9. Patient's chest x-ray on presentation showed no obvious infiltrate. ASSESSMENT: 1. Acute hypoxic respiratory failure, cause unclear. 2. Hypothyroidism. 3. Obesity. 4. Chronic urinary incontinence. 5. Diabetes insipidus. 6. Acute metabolic encephalopathy on presentation. 7. Acute severe anemia; no obvious evidence of blood loss. 8. Thrombocytopenia, mild. PLAN: Patient is on IV propofol, ventilator, bronchodilators. No obvious evidence of infection. Will get a neurological opinion and also order an EEG. Prognosis guarded.
[2016-04-25 18:00] LABS: Anisocytosis Moderate; CH 33.6; HDW 3.73; Hypochromasia Slight; Immature Gran Flag Marked; MCH 34.1 pg (25.0-35.0); MCHC 33.1 g/dL (31.0-37.0); Macrocytosis Moderate; Mean Platelet Volume 7.4; Poikilocytosis Slight; RBC 1.94 m/uL (3.80-5.40); WBC (Perox) 14.09
[2016-04-25 18:07] LABS: HGB 6.6 gm/dL (11.4-16.0)
[2016-04-25 18:44] LABS: Glucose,Whole Blood 113 mg/dL (75-99)
[2016-04-25 19:09] LABS: Reticulocyte % 7.2 % (0.5-2.0)
--- NOTE | 2016-04-25 19:32 | PCN ---
DATE OF PROCEDURE: PERFORMING PHYSICIAN: Dr. Audrey Coronel. PROCEDURE: Placement of a left radial arterial line. PREOPERATIVE DIAGNOSIS: Frequent blood draws and blood gas monitoring. A time-out was completed verifying correct patient, procedure, site, positioning, and implant(s) or special equipment if applicable. Theodore's test was performed to ensure adequate perfusion. The patient's left wrist was prepped and draped in sterile fashion. 1% Lidocaine was used to anesthetize the area. An 18G Arrow arterial line was introduced into the radial artery. The catheter was threaded over the guide wire and the needle was removed with appropriate pulsatile blood return. Blood loss was minimal. The catheter was then sutured in place to the skin and a sterile dressing applied. Perfusion to the extremity distal to the point of catheter insertion was checked and found to be adequate. The patient tolerated the procedure well and there were no immediate complications. There was good waveform and blood pressure reading. The catheters were sutured in place. A sterile dressing was applied by the nurse.
--- NOTE | 2016-04-25 19:35 | PCN ---
DATE OF PROCEDURE: LEFT INTERNAL JUGULAR TRIPLE-LUMEN CATHETER PLACEMENT INDICATION: Hemodynamic monitoring/Intravenous access. PREOPERATIVE DIAGNOSIS: Administration of fluids and pressors. POSTOPERATIVE DIAGNOSIS: Administration of fluids and pressors. A time-out was completed verifying correct patient, procedure, site, positioning, and implant(s) or special equipment if applicable. The patient was placed in a dependent position appropriate for triple-lumen catheter placement based on the vein to be cannulated. The patient's left neck was prepped and draped in sterile fashion. 1% Lidocaine was used to anesthetize the surrounding skin area. A triple-lumen 9F Cordis catheter was introduced into the internal jugular vein using Seldinger technique. The catheter was threaded smoothly over the guide wire and appropriate blood return was obtained. Each lumen of the catheter was evacuated of air and flushed with sterile saline. The catheter was then sutured in place to the skin and a sterile dressing applied. Perfusion to the extremity distal to the point of catheter insertion was checked and found to be adequate. There was good waveform and blood pressure reading. There was no immediate complication. There was good fluid return from all 3 ports. The catheter was sutured in place. A chest x-ray was ordered to check for pneumothorax. A sterile dressing was applied by the nurse.
[2016-04-25 19:49] LABS: Hemoglobin A1C 4.2 % (4.2-6.1)
[2016-04-25 19:55] LABS: Add Differential Manual Differential
[2016-04-25 20:02] LABS: Nucleated Red Blood Cells 20 /100 WBC (0-0); Total Cells Counted 200; WBC 13.3 k/uL (3.8-10.6)
[2016-04-25 20:03] LABS: Large Platelets Present; Polychromasia Present
[2016-04-25 20:04] LABS: Toxic Granulation Present
[2016-04-25] MEDS: DESMOPRESSIN 0.2 MG TAB PO SCH (20:55)
[2016-04-25 22:39] LABS: Anisocytosis Moderate; CHCM 33.1; HCT 21.8 % (34.0-46.0); HGB 7.1 gm/dL (11.4-16.0); Hypochromasia Slight; MCH 32.9 pg (25.0-35.0); MCHC 32.6 g/dL (31.0-37.0); MCV 100.9 fL (80.0-100.0); Macrocytosis Moderate; Poikilocytosis Slight; RBC 2.16 m/uL (3.80-5.40); RDW 21.3 % (11.5-15.5)
[2016-04-26] MEDS: SODIUM CHLORIDE 0.9% 1,000 ML IV SCH ×2 (00:20→11:02)
[2016-04-26] MEDS: INSULIN LISPRO (humaLOG) 300 UNIT/3 ML VIAL SQ SCH ×4 (00:23→17:01)
[2016-04-26 00:24] LABS: Glucose,Whole Blood 120 mg/dL (75-99)
[2016-04-26] MEDS: IPRATROPIUM-ALBUTEROL 3 ML NEB INHALATION SCH ×6 (03:26→23:18)
[2016-04-26 04:49] LABS: ABG HCO3 24 mmol/L (21-25); ABG PCO2 38 mmHg (35-45); ABG PH 7.42 (7.35-7.45); ABG PO2 107 mmHg (83-108); ABG TCO2 25 mmol/L (19-24)
[2016-04-26 05:14] LABS: Anion Gap 5 mmol/L; Blood Urea Nitrogen 33 mg/dL (7-17); Calcium 7.9 mg/dL (8.4-10.2); Carbon Dioxide 31 mmol/L (22-30); Chloride 101 mmol/L (98-107); Glucose 117 mg/dL (74-99); Magnesium 2.4 mg/dL (1.6-2.3); Non-African American GFR(MDRD) >60 (>60 ml/min/1.73 sqM); Phosphorous 4.7 mg/dL (2.5-4.5); Potassium 4.5 mmol/L (3.5-5.1); Sodium 137 mmol/L (137-145)
[2016-04-26 05:20] LABS: Anisocytosis Moderate; CHCM 32.8; HCT 21.6 % (34.0-46.0); HDW 3.59; Hypochromasia Slight; Immature Gran Flag Slight; MCH 33.1 pg (25.0-35.0); MCHC 32.6 g/dL (31.0-37.0); MCV 101.5 fL (80.0-100.0); Macrocytosis Moderate; Mean Platelet Volume 7.5; Poikilocytosis Slight; RBC 2.13 m/uL (3.80-5.40); RDW 21.4 % (11.5-15.5)
--- NOTE | 2016-04-26 06:49 | XR ---
EXAMINATION TYPE: XR chest 1V portable DATE OF EXAM: 04/26/2016 6:45 AM CLINICAL HISTORY: Difficulty breathing progress study. TECHNIQUE: Single AP portable upright view of the chest is obtained. COMPARISON: Chest x-ray from one day earlier FINDINGS: An endotracheal tube, orogastric tube, and left internal jugular central venous catheter a re stable in appearance. There is persistent mild cardiomegaly and mild central vascular congestion w ith bilateral hilar prominence and small bilateral pleural effusions. Effusion size is felt slightly worsened There is increasing associated right basilar opacity noted. Upper lungs are clear without pn eumothorax. Osseous structures are intact. IMPRESSION: Mild cardiomegaly with mild central vascular congestion and small bilateral pleural effus ions, consider CHF exacerbation all redemonstrated, pleural effusions may have slightly worsened vers us prior. New developing right basilar infiltrate and/or atelectasis is noted.
[2016-04-26 06:51] LABS: Glucose,Whole Blood 113 mg/dL (75-99)
[2016-04-26] MEDS: PROPOFOL 500 MG in EMPTY BAG 1 BAG IV SCH ×4 (06:52→20:20)
[2016-04-26] MEDS: LEVOTHYROXINE 88 MCG TAB PO SCH (06:53)
[2016-04-26 08:47] LABS: Add Differential Manual Differential
[2016-04-26] MEDS: PANTOPRAZOLE 40 MG/10 ML VIAL IV SCH ×2 (08:59→20:20)
[2016-04-26] MEDS: CHLORHEXIDINE GLUCONATE 15 ML CUP MUCOUS MEM SCH ×2 (08:59→20:21)
[2016-04-26 09:10] LABS: Band Neutrophils % 10.5 %; Myelocytes % 8.5 %; Nucleated Red Blood Cells 9 /100 WBC (0-0); Promyelocytes % 0.5 %; Total Cells Counted 200; WBC 12.4 k/uL (3.8-10.6)
[2016-04-26 09:11] LABS: Manual Review Performed; Polychromasia Present
--- NOTE | 2016-04-26 09:23 | P.PN ---
Subjective Progress note dated 04/26/2016 60-year-old female who apparently presented to the emergency department with mental status changes. As a history of heart failure hypertension hyperlipidemia and seizures. The patient that was apparently having worsening mental status over the last few days prior to admission. She became unresponsive. She was actually intubated in the emergency department. The patient's currently on the ventilator. We are going to do a daily eruption of sedation and were hoping that we can have a spontaneous breathing trial and her. Chest x-ray shows fluid overload and may be either an infiltrate or effusion at the right base. Dr. Adams bus greaser thinks she might be having hemolysis. She has a history of asthma diabetes hyperlipidemia hypertension hypothyroidism and Parkinson's disease. She also apparently carries with her diagnosis of diabetes insipidus. Objective - Vital Signs Vital signs: Vital Signs Temp 98.8 F 04/26/16 04:00 Pulse 98 04/26/16 08:03 Resp 26 H 04/26/16 07:00 BP 95/53 04/26/16 02:00 Pulse Ox 99 04/26/16 07:00 Intake & Output 04/25/16 04/26/16 04/26/16 18:59 06:59 18:59 Intake Total 2505.581 1429.217 105 Output Total 345 373 30 Balance 2160.581 1056.217 75 Weight 115.5 kg 115.5 kg 121.8 kg Intake: Intake, IV Titration 1885.581 979.217 75 Amount ACETAMINOPHEN IV (For NPO 100 ) 1,000 mg In Empty Bag 1 bag @ 400 mls/hr IVPB Q6HR [facility] Rx#:[id number] Propofol 500 mg In Empty 35.581 79.217 Bag 1 bag @ Titrate IV . Q0M [facility] Rx#:[id number] Sodium Chloride 0.9% 1, 750 900 75 000 ml @ 75 mls/hr IV . [id number] [facility] Rx#:[id number] Sodium Chloride 0.9% 500 1000 ml @ 999 mls/hr IV .Q31M [facility] Rx#:[id number] Tube Feeding 360 30 Blood Product 620 0 Rc As-1 Unit 0 [id number] Rc Pheresis As-3 Unit 310 [id number] Rc Pheresis As-3 Unit 310 [id number] Other 90 Output: Urine 345 373 30 Other: Voiding Method Indwelling Catheter Indwelling Catheter ABP, PAP, CO, CI - Last Documented Arterial Blood Pressure 92/46 - Exam Currently on the ventilator. In no distress. Currently on sedation. HEENT examination is grossly unremarkable. Endotracheal tube and NG tube in place. Mucous membranes are moist. Neck supple. Full range of motion. No adenopathy. Cardiovascular examination reveals regular rhythm rate. S1 and S2 normal. She' s not tachycardic. No distinct murmur. Lungs reveal diminished breath sounds. A few scattered rhonchi. A few crackles are noted. No wheezes. Abdomen soft bowel sounds are heard. Extremities are intact. - Labs CBC & Chem 7: 04/26/16 04:30 04/26/16 04:30 Labs: Abnormal Lab Results - Last 24 Hours (Table) 04/25/16 04/25/16 04/25/16 Range/Units 00:20 08:28 12:17 WBC (3.8-10.6) k/uL RBC (3.80-5.40) m/uL Hgb (11.4-16.0) gm/dL Hct (34.0-46.0) % MCV (80.0-100.0) fL RDW (11.5-15.5) % Plt Count (150-450) k/uL Neutrophils # (Manual) (1.3-7.7) k/uL Lymphocytes # (Manual) (1.0-4.8) k/uL Nucleated RBCs (0-0) /100 WBC Retic Count (0.5-2.0) % ABG Total CO2 (19-24) mmol/L ABG O2 Saturation (94-97) % Sodium 136 L (137-145) mmol/L Chloride 96 L (98-107) mmol/L Carbon Dioxide 32 H (22-30) mmol/L BUN 38 H (7-17) mg/dL Glucose 103 H (74-99) mg/dL POC Glucose (mg/dL) 107 H (75-99) mg/dL Calcium (8.4-10.2) mg/dL Phosphorus (2.5-4.5) mg/dL Magnesium 2.5 H (1.6-2.3) mg/dL Crossmatch See Detail 04/25/16 04/25/16 04/25/16 Range/Units 16:40 18:42 22:30 WBC 13.3 H 18.0 H (3.8-10.6) k/uL RBC 1.94 L 2.16 L (3.80-5.40) m/uL Hgb 6.6 L* 7.1 L (11.4-16.0) gm/dL Hct 20.0 L* 21.8 L (34.0-46.0) % MCV 103.0 H 100.9 H (80.0-100.0) fL RDW 22.0 H 21.3 H (11.5-15.5) % Plt Count 92 L 75 L (150-450) k/uL Neutrophils # (Manual) 8.4 H (1.3-7.7) k/uL Lymphocytes # (Manual) 0.7 L (1.0-4.8) k/uL Nucleated RBCs 20 H (0-0) /100 WBC Retic Count 7.2 H (0.5-2.0) % ABG Total CO2 (19-24) mmol/L ABG O2 Saturation (94-97) % Sodium (137-145) mmol/L Chloride (98-107) mmol/L Carbon Dioxide (22-30) mmol/L BUN (7-17) mg/dL Glucose (74-99) mg/dL POC Glucose (mg/dL) 113 H (75-99) mg/dL Calcium (8.4-10.2) mg/dL Phosphorus (2.5-4.5) mg/dL Magnesium (1.6-2.3) mg/dL Crossmatch 04/26/16 04/26/16 04/26/16 Range/Units 00:22 04:30 04:30 WBC 12.4 H (3.8-10.6) k/uL RBC 2.13 L (3.80-5.40) m/uL Hgb 7.0 L* (11.4-16.0) gm/dL Hct 21.6 L (34.0-46.0) % MCV 101.5 H (80.0-100.0) fL RDW 21.4 H (11.5-15.5) % Plt Count 80 L (150-450) k/uL Neutrophils # (Manual) 9.1 H (1.3-7.7) k/uL Lymphocytes # (Manual) 0.9 L (1.0-4.8) k/uL Nucleated RBCs 9 H (0-0) /100 WBC Retic Count (0.5-2.0) % ABG Total CO2 (19-24) mmol/L ABG O2 Saturation (94-97) % Sodium (137-145) mmol/L Chloride (98-107) mmol/L Carbon Dioxide 31 H (22-30) mmol/L BUN 33 H (7-17) mg/dL Glucose 117 H (74-99) mg/dL POC Glucose (mg/dL) 120 H (75-99) mg/dL Calcium 7.9 L (8.4-10.2) mg/dL Phosphorus 4.7 H (2.5-4.5) mg/dL Magnesium 2.4 H (1.6-2.3) mg/dL Crossmatch 04/26/16 04/26/16 Range/Units 04:43 06:46 WBC (3.8-10.6) k/uL RBC (3.80-5.40) m/uL Hgb (11.4-16.0) gm/dL Hct (34.0-46.0) % MCV (80.0-100.0) fL RDW (11.5-15.5) % Plt Count (150-450) k/uL Neutrophils # (Manual) (1.3-7.7) k/uL Lymphocytes # (Manual) (1.0-4.8) k/uL Nucleated RBCs (0-0) /100 WBC Retic Count (0.5-2.0) % ABG Total CO2 25 H (19-24) mmol/L ABG O2 Saturation 98.0 H (94-97) % Sodium (137-145) mmol/L Chloride (98-107) mmol/L Carbon Dioxide (22-30) mmol/L BUN (7-17) mg/dL Glucose (74-99) mg/dL POC Glucose (mg/dL) 113 H (75-99) mg/dL Calcium (8.4-10.2) mg/dL Phosphorus (2.5-4.5) mg/dL Magnesium (1.6-2.3) mg/dL Crossmatch Assessment and Plan (1) Diabetes Status: Acute (2) Hyperlipidemia Status: Acute (3) Hypertension Status: Acute (4) Diabetes insipidus Status: Acute (5) Anemia Status: Acute (6) Encephalopathy Status: Acute (7) Ventilator dependence Status: Acute Plan: Destiny Reed we'll go ahead and come up with the formulation for enteral nutrition on this patient. She apparently not been eating well prior to admission. This apparently was occurring for about 2 or 3 days before hand. In addition, I'll review all her medications. She apparently was taking DDAVP at 0.4 mg every night orally. We'll have to replace that. She is also on a number of other medications that will have to replace. We may need to put lines in her including an art line and central line. Prognosis is guarded. We'll make sure she is on updrafts. Currently she is getting appointment 9 IV at 75 mL an hour. She's getting propofol at 7 mics per kilogram per minute. Her vent settings include the assist control mode rate of 14 to be bumped up to 22 tidal volume of 550 to be reduced to 350 and FiO2 40% and 5 of PEEP. On those settings, the pO2 was 105 the pCO2 was 35 and a pH of 7.5. She has received will receive 2 units of PRBCs. Plan dated 04/26/2016 The patient will be giving be given a daily eruption of sedation and a possible spontaneous breathing trial. We'll hold the propofol or DIProvan. The patient' s currently on the assist control mode rate of 22 out of I'm to 350 FiO2 40% to be dropped down to 35% and a PEEP of 5 blood gases show pO2 107 a PaCO2 38 and a pH of 7.42. The patient is getting vital high protein at 30 with a goal of 55. She's getting appointment 9 IV at 75 mL an hour and Diprovan at 15 mics per kilogram per minute. Time with Patient: Greater than 30 (The patient's medications labs and x-rays are all reviewed.)
[2016-04-26] MEDS: ENOXAPARIN 40 MG/0.4 ML SYRINGE SQ SCH (09:30)
--- NOTE | 2016-04-26 11:21 | P.CONS ---
History of Present Illness - Reason for Consult Consult date: 04/26/16 anemia Requesting physician: Sky Robins - History of Present Illness 60-year-old female resident at [facility] admitted with unresponsiveness and anemia. Currently intubated; health history obtained from nursing staff and medical records. Recent hospitalization February for atypical pneumonia and syncope. Past medical history of schizoaffective disorder, hyperlipidemia, hypertension, hypothyroid, and medication associated Parkinson's like disease. Consultation for anemia. Heme negative stool. Nursing reports she was receiving Lovenox prior to admission. Intubated for protection of airway. Nursing reports no obvious/overt GI bleeding. Review of medical records average hemoglobin last 2 months between 10-11 range no records of EGD/colonoscopy. GI office called no records of endoscopy. Admission hemoglobin 6.0. MCV 101. Platelets decreasing currently 80,000. INR 1.2. BUn 48. Creatinine 0.8. Received 2 units of blood current hemoglobin 7.0. Review of Systems Unable to obtain see HPI ROS unobtainable: due to endotracheal tube, due to mental status All systems: negative (See HPI) Past Medical History Past Medical History: Asthma, Diabetes Mellitus, Hyperlipidemia, Hypertension, Thyroid Disorder Additional Past Medical History / Comment(s): Parkinson's -like symptoms due to medication, diabetes insipidus. History of Any Multi-Drug Resistant Organisms: None Reported Past Surgical History: Appendectomy Additional Past Surgical History / Comment(s): Additional Medical Hx: Parkinson' s Disease; Additional Past Anesthesia/Blood Transfusion Reaction / Comm: Unknown Past Psychological History: Schizophrenia Additional Psychological History / Comment(s): Patient receives outpatient counselling and sees Dr. Muse. Smoking Status: Never smoker Past Alcohol Use History: None Reported Additional Past Alcohol Use History / Comment(s): Patient denies any history of smoking, medical marijuana or marijuana use or alcohol use. Patient is single and has no children. Past Drug Use History: None Reported - Past Family History Father Family Medical History: CVA/TIA Additional Family Medical History / Comment(s): Patient father in his 80s from his stroke and also her mother in her 80s from a stroke. She has one brother and 2 sisters which she has no contact with. Patient has a guardian. Medications and Allergies Home Medications Medication Instructions Recorded Confirmed Type Magnesium Oxide [Mag-Ox] 400 mg PO DAILY 06/24/14 04/24/16 History Acetaminophen Tab [Tylenol] 325 mg PO DAILY PRN 02/24/16 04/24/16 History Divalproex ER [Depakote ER] 1,000 mg PO HS 02/24/16 04/24/16 History Divalproex ER [Depakote ER] 500 mg PO DAILY 02/24/16 04/24/16 History LORazepam [Ativan] 1 mg PO Q6H PRN 02/24/16 04/24/16 History Loratadine/Pseudoephedrine 1 tab PO BID PRN 02/24/16 04/24/16 History [Alavert D-12 Allergy-Sinus Tab] OLANZapine 20 mg PO HS 02/24/16 04/24/16 History Oxybutynin Chloride 5 mg PO BID 02/24/16 04/24/16 History fluvoxaMINE [Luvox] 50 mg PO BID 02/24/16 04/24/16 History Magnesium Hydroxide [Milk of 2,400 mg PO Q72H PRN 04/24/16 04/24/16 History Magnesia] Sennosides-Docusate Sodium 1 tab PO HS 04/24/16 04/24/16 History [Senokot-S] Allergies Allergy/AdvReac Type Severity Reaction Status Date / Time aspirin AdvReac Nausea & Verified 04/24/16 19:29 Vomiting Physical Exam Vitals: Vital Signs Temp Pulse Resp BP Pulse Ox 04/26/16 11:02 97 04/26/16 11:00 105 H 20 85/45 97 04/26/16 10:00 108 H 20 82/43 96 04/26/16 09:00 101 H 16 96 04/26/16 08:03 98 04/26/16 08:00 99.6 F 97 16 98 04/26/16 07:42 97 04/26/16 07:00 100 26 H 99 04/26/16 06:00 93 24 100 04/26/16 05:00 90 24 100 04/26/16 04:00 98.8 F 95 25 H 100 04/26/16 03:28 101 H 04/26/16 03:17 100 04/26/16 03:00 95 25 H 99 04/26/16 02:00 87 24 95/53 99 04/26/16 01:00 90 22 99 04/26/16 00:00 99.5 F 90 24 99 04/25/16 23:30 86 22 98 04/25/16 23:19 91 04/25/16 23:08 90 04/25/16 23:00 88 22 98 04/25/16 22:00 95 22 98 04/25/16 21:00 95 22 91/55 96 04/25/16 20:13 98.9 F 96 22 98/52 98 04/25/16 20:00 98.9 F 103 H 22 92/51 99 04/25/16 19:48 113 H 04/25/16 19:43 98.8 F 96 22 91/49 100 04/25/16 19:33 99.5 F 102 H 22 98/53 98 04/25/16 19:00 100 22 100 04/25/16 18:00 93 22 100 04/25/16 17:00 94 100 04/25/16 16:00 99.5 F 90 22 100 04/25/16 15:38 87 04/25/16 15:26 88 04/25/16 15:00 90 22 100 04/25/16 14:00 87 22 100 04/25/16 13:00 92 22 100 04/25/16 12:24 113 H 04/25/16 12:13 100 04/25/16 12:11 100.6 F H 101 H 22 100/52 100 04/25/16 12:00 100.1 F H 100 22 100 04/25/16 11:10 100.0 F H 96 22 89/49 Intake and Output 04/25/16 04/26/16 04/26/16 22:59 06:59 14:59 Intake Total 805 924.217 591.96 Output Total 286 217 200 Balance 519 707.217 391.96 Intake: IV 300 Sodium Chloride 0.9% 1, 300 000 ml @ 75 mls/hr IV . [id number] ANDREEA Rx#:[id number] Intake, IV Titration 675 604.217 91.96 Amount Propofol 500 mg In Empty 79.217 16.96 Bag 1 bag @ Titrate IV . Q0M ANDREEA Rx#:[id number] Sodium Chloride 0.9% 1, 675 525 75 000 ml @ 75 mls/hr IV . [id number] ANDREEA Rx#:[id number] Tube Feeding 100 260 200 Blood Product 0 Rc As-1 Unit 0 [id number] Other 30 60 Output: Urine 286 217 200 Other: Voiding Method Indwelling Catheter Indwelling Catheter Indwelling Catheter Weight 115.5 kg 121.8 kg Patient Weight 04/27/16 06:59 Weight 121.8 kg ABP, PAP, CO, CI - Last 8 Hours Arterial Blood Pressure 93/50 Arterial Blood Pressure 88/49 Arterial Blood Pressure 99/45 Arterial Blood Pressure 108/49 Arterial Blood Pressure 92/46 Arterial Blood Pressure 104/54 Arterial Blood Pressure 104/52 Arterial Blood Pressure 95/48 - Constitutional General appearance: average body habitus - EENT Eyes: normal appearance Ears: bilateral: normal - Neck soft. Intubated. Endotracheal tube intact. OGT with feeds. - Respiratory Respiratory: bilateral: CTA - Cardiovascular Heart sounds: normal: S1, S2 - Gastrointestinal General gastrointestinal: normal bowel sounds, soft - Integumentary Integumentary: normal - Psychiatric intubated. Lower extremities without edema. ocampo with clear yellow urine. Results CBC & Chem 7: 04/26/16 04:30 04/26/16 04:30 Labs: Abnormal Lab Results - Last 24 Hours (Table) 04/25/16 04/25/16 04/25/16 Range/Units 00:20 12:17 16:40 WBC 13.3 H (3.8-10.6) k/uL RBC 1.94 L (3.80-5.40) m/uL Hgb 6.6 L* (11.4-16.0) gm/dL Hct 20.0 L* (34.0-46.0) % MCV 103.0 H (80.0-100.0) fL RDW 22.0 H (11.5-15.5) % Plt Count 92 L (150-450) k/uL Neutrophils # (Manual) 8.4 H (1.3-7.7) k/uL Lymphocytes # (Manual) 0.7 L (1.0-4.8) k/uL Nucleated RBCs 20 H (0-0) /100 WBC Retic Count 7.2 H (0.5-2.0) % ABG Total CO2 (19-24) mmol/L ABG O2 Saturation (94-97) % Carbon Dioxide (22-30) mmol/L BUN (7-17) mg/dL Glucose (74-99) mg/dL POC Glucose (mg/dL) 107 H (75-99) mg/dL Calcium (8.4-10.2) mg/dL Phosphorus (2.5-4.5) mg/dL Magnesium (1.6-2.3) mg/dL Crossmatch See Detail 04/25/16 04/25/16 04/26/16 Range/Units 18:42 22:30 00:22 WBC 18.0 H (3.8-10.6) k/uL RBC 2.16 L (3.80-5.40) m/uL Hgb 7.1 L (11.4-16.0) gm/dL Hct 21.8 L (34.0-46.0) % MCV 100.9 H (80.0-100.0) fL RDW 21.3 H (11.5-15.5) % Plt Count 75 L (150-450) k/uL Neutrophils # (Manual) (1.3-7.7) k/uL Lymphocytes # (Manual) (1.0-4.8) k/uL Nucleated RBCs (0-0) /100 WBC Retic Count (0.5-2.0) % ABG Total CO2 (19-24) mmol/L ABG O2 Saturation (94-97) % Carbon Dioxide (22-30) mmol/L BUN (7-17) mg/dL Glucose (74-99) mg/dL POC Glucose (mg/dL) 113 H 120 H (75-99) mg/dL Calcium (8.4-10.2) mg/dL Phosphorus (2.5-4.5) mg/dL Magnesium (1.6-2.3) mg/dL Crossmatch 04/26/16 04/26/16 04/26/16 Range/Units 04:30 04:30 04:43 WBC 12.4 H (3.8-10.6) k/uL RBC 2.13 L (3.80-5.40) m/uL Hgb 7.0 L* (11.4-16.0) gm/dL Hct 21.6 L (34.0-46.0) % MCV 101.5 H (80.0-100.0) fL RDW 21.4 H (11.5-15.5) % Plt Count 80 L (150-450) k/uL Neutrophils # (Manual) 9.1 H (1.3-7.7) k/uL Lymphocytes # (Manual) 0.9 L (1.0-4.8) k/uL Nucleated RBCs 9 H (0-0) /100 WBC Retic Count (0.5-2.0) % ABG Total CO2 25 H (19-24) mmol/L ABG O2 Saturation 98.0 H (94-97) % Carbon Dioxide 31 H (22-30) mmol/L BUN 33 H (7-17) mg/dL Glucose 117 H (74-99) mg/dL POC Glucose (mg/dL) (75-99) mg/dL Calcium 7.9 L (8.4-10.2) mg/dL Phosphorus 4.7 H (2.5-4.5) mg/dL Magnesium 2.4 H (1.6-2.3) mg/dL Crossmatch 04/26/16 Range/Units 06:46 WBC (3.8-10.6) k/uL RBC (3.80-5.40) m/uL Hgb (11.4-16.0) gm/dL Hct (34.0-46.0) % MCV (80.0-100.0) fL RDW (11.5-15.5) % Plt Count (150-450) k/uL Neutrophils # (Manual) (1.3-7.7) k/uL Lymphocytes # (Manual) (1.0-4.8) k/uL Nucleated RBCs (0-0) /100 WBC Retic Count (0.5-2.0) % ABG Total CO2 (19-24) mmol/L ABG O2 Saturation (94-97) % Carbon Dioxide (22-30) mmol/L BUN (7-17) mg/dL Glucose (74-99) mg/dL POC Glucose (mg/dL) 113 H (75-99) mg/dL Calcium (8.4-10.2) mg/dL Phosphorus (2.5-4.5) mg/dL Magnesium (1.6-2.3) mg/dL Crossmatch Assessment and Plan Plan: Impression: 60 year old female admitted with unresponsiveness requiring mechanical intubation with macrocytic anemia suggestive of acute GI bleed with acute blood loss anemia without overt GI bleeding at this time. Etiology of bleed unclear at this time. Review of medical records show no evidence of prior endoscopy. Plan: 1. IV protonix 40 mg BID. 2. Iron studies. 3. Observe for overt bleeding. Transfuse as indicated. Monitor CBC. 4. Will proceed with EGD/colonoscopy once extubated and medically stabilized. 5. Will follow with you. Thank you for this kind referral and the opportunity to participate in the care of your patient. This consultation was discussed with Dr. Ramirez. The impression and plan of care have been directed as dictated.
[2016-04-26 11:38] LABS: Glucose,Whole Blood 141 mg/dL (75-99)
[2016-04-26 13:06] LABS: % Iron Saturation 18.9 % (20-50)
[2016-04-26] MEDS: methylPREDNISolone SOD SUCCI 125 MG/2 ML VIAL IV SCH (16:13)
[2016-04-26 16:36] LABS: Anisocytosis Moderate; CH 33.1; HCT 21.7 % (34.0-46.0); HDW 3.66; Hypochromasia Slight; MCH 32.9 pg (25.0-35.0); MCHC 32.4 g/dL (31.0-37.0); MCV 101.5 fL (80.0-100.0); Macrocytosis Moderate; Mean Platelet Volume 7.3; Poikilocytosis Slight; RBC 2.13 m/uL (3.80-5.40); RDW 21.6 % (11.5-15.5)
[2016-04-26 16:52] LABS: Glucose,Whole Blood 151 mg/dL (75-99)
[2016-04-26 19:42] LABS: Add Differential Manual Differential
[2016-04-26 19:46] LABS: Nucleated Red Blood Cells 4 /100 WBC (0-0); Total Cells Counted 200
[2016-04-26 19:47] LABS: Manual Review Performed; Polychromasia Present; WBC 15.3 k/uL (3.8-10.6)
[2016-04-26 19:48] LABS: Basophilic Stippling Present
[2016-04-26 19:49] LABS: Large Platelets Present
[2016-04-26] MEDS: DESMOPRESSIN 0.2 MG TAB PO SCH (20:21)
--- NOTE | 2016-04-26 21:08 | P.CONS ---
History of Present Illness - Reason for Consult Consult date: 04/26/16 Anemia, thrombocytopenia - History of Present Illness The patient is a 70-year-old lady with multiple medical issues. She is an [facility] resident. The patient was noted by the [facility] staff, to be somewhat lethargic, with decreased responsiveness over the last few days. The changes were progressive in nature. The patient, on the day of admission became unresponsive. She was brought into the emergency room. It was felt that she could not protect her airway, and was therefore intubated and transferred to the ICU. The brain without contrast was negative. A chest x-ray did not show any major findings. On admission the patient's hemoglobin was in the 7 range and subsequently fell to 6. She received 2 units of blood with no major improvement in the hemoglobin. After an additional unit, hemoglobin improvement to the 7 range. No overt bleeding was noted. The patient's hemoglobin, since 02/24, has remained in the 10-11 range. Prior to that had actually were normal. On 04/30/2016, her platelets had been normal. On this admission, platelet count was 123 and subsequently has fallen to 70,000 today. Her WBC was elevated in the 12-16 range. The consult was placed for further evaluation and recommendations. Previous labs and records and the EHR were reviewed. MCV has been elevated, and the low 100 range. Intermittent leukopenia was also seen. In 02/24, the patient had a diagnosis of atypical pneumonia. Review of Systems Not obtainable from the patient that she is intubated. This was obtained from the electronic medical records, as well as nursing Constitutional: Reports lethargy Eyes: denies blurred vision, denies pain Ears: deny: decreased hearing, ear discharge, earache, tinnitus Ears, nose, mouth and throat: Denies headache, Denies sore throat Cardiovascular: Denies chest pain, Denies shortness of breath Respiratory: Reports as per HPI (Prior history of pneumonia) Gastrointestinal: Denies abdominal pain, Denies diarrhea, Denies nausea, Denies vomiting Genitourinary: Denies dysuria, Denies hematuria Menstruation: Reports postmenopausal Musculoskeletal: Denies myalgias Integumentary: Denies pruritus, Denies rash Neurological: Reports as per HPI, Reports change in mentation Psychiatric: Reports as per HPI (History of schizophrenia) Endocrine: Denies fatigue, Denies weight change Hematologic/Lymphatic: Reports as per HPI Past Medical History Past Medical History: Asthma, Diabetes Mellitus, Hyperlipidemia, Hypertension, Thyroid Disorder Additional Past Medical History / Comment(s): Parkinson's -like symptoms due to medication, diabetes insipidus. History of Any Multi-Drug Resistant Organisms: None Reported Past Surgical History: Appendectomy Additional Past Surgical History / Comment(s): Additional Medical Hx: Parkinson' s Disease; Additional Past Anesthesia/Blood Transfusion Reaction / Comm: Unknown Past Psychological History: Schizophrenia Additional Psychological History / Comment(s): Patient receives outpatient counselling and sees Dr. Muse. Smoking Status: Never smoker Past Alcohol Use History: None Reported Additional Past Alcohol Use History / Comment(s): Patient denies any history of smoking, medical marijuana or marijuana use or alcohol use. Patient is single and has no children. Past Drug Use History: None Reported - Past Family History Father Family Medical History: CVA/TIA Additional Family Medical History / Comment(s): Patient father in his 80s from his stroke and also her mother in her 80s from a stroke. She has one brother and 2 sisters which she has no contact with. Patient has a guardian. Medications and Allergies Home Medications Medication Instructions Recorded Confirmed Type Magnesium Oxide [Mag-Ox] 400 mg PO DAILY 06/24/14 04/24/16 History Acetaminophen Tab [Tylenol] 325 mg PO DAILY PRN 02/24/16 04/24/16 History Divalproex ER [Depakote ER] 1,000 mg PO HS 02/24/16 04/24/16 History Divalproex ER [Depakote ER] 500 mg PO DAILY 02/24/16 04/24/16 History LORazepam [Ativan] 1 mg PO Q6H PRN 02/24/16 04/24/16 History Loratadine/Pseudoephedrine 1 tab PO BID PRN 02/24/16 04/24/16 History [Alavert D-12 Allergy-Sinus Tab] OLANZapine 20 mg PO HS 02/24/16 04/24/16 History Oxybutynin Chloride 5 mg PO BID 02/24/16 04/24/16 History fluvoxaMINE [Luvox] 50 mg PO BID 02/24/16 04/24/16 History Magnesium Hydroxide [Milk of 2,400 mg PO Q72H PRN 04/24/16 04/24/16 History Magnesia] Sennosides-Docusate Sodium 1 tab PO HS 04/24/16 04/24/16 History [Senokot-S] Allergies Allergy/AdvReac Type Severity Reaction Status Date / Time aspirin AdvReac Nausea & Verified 04/24/16 19:29 Vomiting Physical Exam Vitals: Vital Signs Temp Pulse Resp BP Pulse Ox 04/26/16 20:00 86 100 04/26/16 19:28 85 04/26/16 19:23 84 04/26/16 19:00 100.5 F H 89 83/45 98 04/26/16 18:00 100.8 F H 94 20 95/47 92 L 04/26/16 17:00 109 H 20 91/47 96 04/26/16 16:28 107 H 04/26/16 16:13 109 H 04/26/16 16:00 99.6 F 109 H 16 93/47 96 04/26/16 15:48 96 04/26/16 15:00 109 H 16 86/48 96 04/26/16 14:00 111 H 16 90/41 97 04/26/16 13:00 110 H 18 85/47 97 04/26/16 12:00 98.5 F 120 H 16 82/46 97 04/26/16 11:56 107 H 04/26/16 11:27 106 H 04/26/16 11:02 97 04/26/16 11:00 105 H 20 85/45 97 04/26/16 10:00 108 H 20 82/43 96 04/26/16 09:00 101 H 16 96 04/26/16 08:03 98 04/26/16 08:00 99.6 F 97 16 98 04/26/16 07:42 97 04/26/16 07:00 100 26 H 99 04/26/16 06:00 93 24 100 04/26/16 05:00 90 24 100 04/26/16 04:00 98.8 F 95 25 H 100 04/26/16 03:28 101 H 04/26/16 03:17 100 04/26/16 03:00 95 25 H 99 04/26/16 02:00 87 24 95/53 99 04/26/16 01:00 90 22 99 04/26/16 00:00 99.5 F 90 24 99 04/25/16 23:30 86 22 98 04/25/16 23:19 91 04/25/16 23:08 90 04/25/16 23:00 88 22 98 04/25/16 22:00 95 22 98 04/25/16 21:00 95 22 91/55 96 Intake and Output 04/26/16 04/26/16 04/26/16 06:59 14:59 22:59 Intake Total 924.217 976.96 744.414 Output Total 217 355 390 Balance 707.217 621.96 354.414 Intake: IV 525 450 Sodium Chloride 0.9% 1, 525 450 000 ml @ 75 mls/hr IV . [id number] ANDREEA Rx#:[id number] Intake, IV Titration 604.217 91.96 54.414 Amount Propofol 500 mg In Empty 79.217 16.96 54.414 Bag 1 bag @ Titrate IV . Q0M ANDREEA Rx#:[id number] Sodium Chloride 0.9% 1, 525 75 000 ml @ 75 mls/hr IV . [id number] ANDREEA Rx#:[id number] Tube Feeding 260 360 240 Other 60 Output: Urine 217 355 390 Other: Voiding Method Indwelling Catheter Indwelling Catheter Indwelling Catheter Weight 115.5 kg 121.8 kg Patient Weight 04/27/16 06:59 Weight 121.8 kg ABP, PAP, CO, CI - Last 8 Hours Arterial Blood Pressure 105/48 Arterial Blood Pressure 110/51 Arterial Blood Pressure 98/45 Arterial Blood Pressure 96/45 Arterial Blood Pressure 99/47 Arterial Blood Pressure 97/47 Arterial Blood Pressure 96/47 Arterial Blood Pressure 96/50 - Constitutional Intubated, and sedated on vent - EENT Oral exam limited due to endotracheal tube Eyes: PERRLA - Neck Possible enlarged node, right medial supraclavicular area Thyroid: bilateral: normal size - Respiratory Respiratory: bilateral: CTA - Cardiovascular Rhythm: regular Heart sounds: normal: S1, S2 - Gastrointestinal General gastrointestinal: normal bowel sounds, soft - Integumentary Integumentary: normal - Neurologic Sedated, on went - Musculoskeletal Musculoskeletal: generalized weakness Results CBC & Chem 7: 04/26/16 16:12 04/26/16 04:30 Labs: Abnormal Lab Results - Last 24 Hours (Table) 04/25/16 04/26/16 04/26/16 Range/Units 22:30 00:22 04:30 WBC 18.0 H 12.4 H (3.8-10.6) k/uL RBC 2.16 L 2.13 L (3.80-5.40) m/uL Hgb 7.1 L 7.0 L* (11.4-16.0) gm/dL Hct 21.8 L 21.6 L (34.0-46.0) % MCV 100.9 H 101.5 H (80.0-100.0) fL RDW 21.3 H 21.4 H (11.5-15.5) % Plt Count 75 L 80 L (150-450) k/uL Neutrophils # (Manual) 9.1 H (1.3-7.7) k/uL Lymphocytes # (Manual) 0.9 L (1.0-4.8) k/uL Nucleated RBCs 9 H (0-0) /100 WBC ABG Total CO2 (19-24) mmol/L ABG O2 Saturation (94-97) % Carbon Dioxide (22-30) mmol/L BUN (7-17) mg/dL Glucose (74-99) mg/dL POC Glucose (mg/dL) 120 H (75-99) mg/dL Calcium (8.4-10.2) mg/dL Phosphorus (2.5-4.5) mg/dL Magnesium (1.6-2.3) mg/dL TIBC (265-497) ug/dL % Saturation (20-50) % Ferritin (11-264) ng/mL 04/26/16 04/26/16 04/26/16 Range/Units 04:30 04:30 04:43 WBC (3.8-10.6) k/uL RBC (3.80-5.40) m/uL Hgb (11.4-16.0) gm/dL Hct (34.0-46.0) % MCV (80.0-100.0) fL RDW (11.5-15.5) % Plt Count (150-450) k/uL Neutrophils # (Manual) (1.3-7.7) k/uL Lymphocytes # (Manual) (1.0-4.8) k/uL Nucleated RBCs (0-0) /100 WBC ABG Total CO2 25 H (19-24) mmol/L ABG O2 Saturation 98.0 H (94-97) % Carbon Dioxide 31 H (22-30) mmol/L BUN 33 H (7-17) mg/dL Glucose 117 H (74-99) mg/dL POC Glucose (mg/dL) (75-99) mg/dL Calcium 7.9 L (8.4-10.2) mg/dL Phosphorus 4.7 H (2.5-4.5) mg/dL Magnesium 2.4 H (1.6-2.3) mg/dL TIBC 238 L (265-497) ug/dL % Saturation 18.9 L (20-50) % Ferritin 430 H (11-264) ng/mL 04/26/16 04/26/16 04/26/16 Range/Units 06:46 11:35 16:12 WBC 15.3 H (3.8-10.6) k/uL RBC 2.13 L (3.80-5.40) m/uL Hgb 7.0 L* (11.4-16.0) gm/dL Hct 21.7 L (34.0-46.0) % MCV 101.5 H (80.0-100.0) fL RDW 21.6 H (11.5-15.5) % Plt Count 70 L (150-450) k/uL Neutrophils # (Manual) 13.9 H (1.3-7.7) k/uL Lymphocytes # (Manual) 0.9 L (1.0-4.8) k/uL Nucleated RBCs 4 H (0-0) /100 WBC ABG Total CO2 (19-24) mmol/L ABG O2 Saturation (94-97) % Carbon Dioxide (22-30) mmol/L BUN (7-17) mg/dL Glucose (74-99) mg/dL POC Glucose (mg/dL) 113 H 141 H (75-99) mg/dL Calcium (8.4-10.2) mg/dL Phosphorus (2.5-4.5) mg/dL Magnesium (1.6-2.3) mg/dL TIBC (265-497) ug/dL % Saturation (20-50) % Ferritin (11-264) ng/mL 04/26/16 Range/Units 16:50 WBC (3.8-10.6) k/uL RBC (3.80-5.40) m/uL Hgb (11.4-16.0) gm/dL Hct (34.0-46.0) % MCV (80.0-100.0) fL RDW (11.5-15.5) % Plt Count (150-450) k/uL Neutrophils # (Manual) (1.3-7.7) k/uL Lymphocytes # (Manual) (1.0-4.8) k/uL Nucleated RBCs (0-0) /100 WBC ABG Total CO2 (19-24) mmol/L ABG O2 Saturation (94-97) % Carbon Dioxide (22-30) mmol/L BUN (7-17) mg/dL Glucose (74-99) mg/dL POC Glucose (mg/dL) 151 H (75-99) mg/dL Calcium (8.4-10.2) mg/dL Phosphorus (2.5-4.5) mg/dL Magnesium (1.6-2.3) mg/dL TIBC (265-497) ug/dL % Saturation (20-50) % Ferritin (11-264) ng/mL Chest x-ray: report reviewed (Peripheral smear was personally reviewed. Poikilocytosis with macrocytosis, as well as anisochromosomia noted. Dysplastic WBC forms, nucleated reds, as well as immature myeloid cells noted. Possible isolated blast) CT Scan - head: report reviewed Assessment and Plan (1) Bicytopenia Narrative/Plan: At this time, the etiology is unclear. The patient has had a fairly significant and acute drop compared to her baseline. In these situations, usually bleeding or hemolysis are the major differentials. Reticulocyte count was elevated at 7.2%. However bilirubin was normal. Case was discussed with blood bank, who confirmed that no antibody was noted. No obvious bleeding has been noted, and iron studies are more sensitive of anemia of inflammation/acute illness, with high ferritin and diminished iron saturation. The peripheral smear does show evidence of chronic red cell changes, with an obvious left shift. The patient has also been noted to have an acute drop in platelets. Due to this picture, the peripheral smear was reviewed. No schistocytosis were seen, essentially ruling out a TTP-type phenomenon given that creatinine is also normal. There is no evidence of DIC either, with normal coags The peripheral smear appearance, indicates a possible underlying marrow disorder. This could indicate a primary bone marrow disease. However this appearance can also be seen in patients on Depakote. At this time I would recommend continued monitoring, with the supportive transfusions as needed. We will try to maintain hemoglobin above 7. I will order labs for workup for anemia and throat cytopenia, including hemolysis labs. Case was discussed with the internal medicine service. Depending on additional findings, and the patient's clinical course, we may need to consider a bone marrow if appropriate. A possible explanation could be underlying marrow dysfunction due to Depakote , with the acute drop due to acute illness. This is typically seen with the infection or other major inflammation. Per my discussion a primary medicine, initially there appeared to be no evidence of sepsis. Subsequently sputum culture was found to be positive for MRSA. Therefore if the patient does have an active infection, this would be compatible with the aforementioned clinical picture. Status: Acute (2) Adenopathy Narrative/Plan: On exam there appeared to be a possible enlarged lymph node in the right supraclavicular area, as well as possibly in bilateral axillae. I will order computed tomography scan of the chest abdomen and pelvis to work this up further. Status: Acute (3) Ventilator dependence Narrative/Plan: Case was discussed with the admitting service and primary medicine. The patient is stable on the vent, and she will be undergoing bleeding trials in the near future Status: Acute
[2016-04-26] MEDS ORDERED: RX INFO: IV CONTRAST WAS GIVEN 1 EACH MISC MISCELLANE PRN (21:09)
[2016-04-26] MEDS ORDERED: IOHEXOL 350 MG/ML 25 ML BOTTLE (ORAL USE) PO PRN (21:09)
--- NOTE | 2016-04-26 21:11 | PN ---
DATE OF SERVICE: 04/26/2016 REASON FOR CONSULTATION: Acute respiratory failure. INTERVAL HISTORY: This patient presented with change in mental status, acute respiratory failure remains on the ventilator. FIO2 35 and PEEP of 5, off pressors. Patient did drop her hemoglobin, has received a total of 4 units of blood. No evidence of bleeding. Cause of anemia is unclear at this point, hematology was consulted. Patient is getting OG-tube feeding. Review of systems cannot be done, patient intubated. Current medications include some IV propofol, IV Solu-Medrol was started by hematology. On examination, temperature 98.5, pulse 120, respirations 16, blood pressure 82/46, pulse ox 97%. GENERAL APPEARANCE: Lying in bed, awake. EYES: Pupils equal. Conjunctivae normal. HEENT: OG-tube in place. NECK: JVD is unable to assess. Mass not palpable. RESPIRATORY: Effort normal. LUNGS: Diminished breath sounds. CARDIOVASCULAR: First and second sounds normal. No edema. ABDOMEN: Soft, liver and spleen not palpable. NEUROLOGICAL: It looks like the patient is following some commands. INVESTIGATIONS: White count 15.9, hemoglobin 7, platelets 70, the patient iron saturation is low. ASSESSMENT: 1. Acute hypoxic respiratory failure ( ) the ventilator. 2. Hypothyroidism, chronic. 3. Morbid obesity, body mass index of 43.3. 4. Chronic urinary incontinence. 5. Diabetes insipidus. 6. Acute metabolic encephalopathy on presentation. 7. Acute severe anemia. No evidence of gastrointestinal blood loss. Other causes are being worked up. 8. Thrombocytopenia. 9. Schizophrenia. PLAN: Continue current medication and treatment plan, supportive care. There may be element of hemolysis. Hematological picture is not clear at this point. Did speak to Dr. Adams. He is contemplating a bone marrow biopsy. Also do a ( ) CAT scan.
[2016-04-26 22:50] LABS: Anisocytosis Moderate; CH 33.1; CHCM 32.5; Hypochromasia Slight; Immature Gran Flag Slight; MCH 32.8 pg (25.0-35.0); MCHC 31.9 g/dL (31.0-37.0); MCV 103.1 fL (80.0-100.0); Macrocytosis Moderate; Mean Platelet Volume 7.9; Poikilocytosis Slight; RBC 2.14 m/uL (3.80-5.40); RDW 22.2 % (11.5-15.5); WBC (Perox) 17.43
[2016-04-26 23:26] LABS: Add Differential Manual Differential
[2016-04-26 23:29] LABS: Manual Review Performed; Myelocytes % 1.5 %; Nucleated Red Blood Cells 4 /100 WBC (0-0); Total Cells Counted 200; WBC 17.3 k/uL (3.8-10.6)
[2016-04-26 23:30] LABS: Polychromasia Present
[2016-04-26 23:40] LABS: Basophilic Stippling Present
[2016-04-27] MEDS: methylPREDNISolone SOD SUCCI 125 MG/2 ML VIAL IV SCH ×4 (01:14→23:26)
[2016-04-27 01:26] LABS: Glucose,Whole Blood 202 mg/dL (75-99)
[2016-04-27] MEDS: INSULIN LISPRO (humaLOG) 300 UNIT/3 ML VIAL SQ SCH ×5 (01:31→23:27)
[2016-04-27] MEDS: IPRATROPIUM-ALBUTEROL 3 ML NEB INHALATION SCH ×6 (03:26→23:25)
[2016-04-27] MEDS: SODIUM CHLORIDE 0.9% 1,000 ML IV SCH ×2 (03:56→17:46)
[2016-04-27 04:44] LABS: Anisocytosis Moderate; CH 33.3; CHCM 32.3; HCT 25.1 % (34.0-46.0); HDW 3.53; HGB 8.3 gm/dL (11.4-16.0); Hypochromasia Slight; Immature Gran Flag Slight; MCH 34.4 pg (25.0-35.0); MCV 104.1 fL (80.0-100.0); Macrocytosis Marked; Mean Platelet Volume 8.4; Poikilocytosis Slight; RBC 2.41 m/uL (3.80-5.40); RDW 21.5 % (11.5-15.5); Reticulocyte % 9.2 % (0.5-2.0)
[2016-04-27 04:56] LABS: Add Differential Manual Differential
[2016-04-27 04:57] LABS: Anion Gap 7 mmol/L; Blood Urea Nitrogen 31 mg/dL (7-17); Calcium 8.2 mg/dL (8.4-10.2); Carbon Dioxide 31 mmol/L (22-30); Chloride 102 mmol/L (98-107); Glucose 188 mg/dL (74-99); LDH 599 U/L (313-618); Magnesium 2.5 mg/dL (1.6-2.3); Non-African American GFR(MDRD) >60 (>60 ml/min/1.73 sqM); Phosphorous 5.2 mg/dL (2.5-4.5); Potassium 4.8 mmol/L (3.5-5.1); Sodium 140 mmol/L (137-145)
[2016-04-27 04:59] LABS: Nucleated Red Blood Cells 6 /100 WBC (0-0); Total Cells Counted 200
[2016-04-27 05:00] LABS: Manual Review Performed; Polychromasia Present; Rheumatoid Factor, Qnt <9 IU/mL (<12)
[2016-04-27 05:02] LABS: Basophilic Stippling Present
[2016-04-27 05:47] LABS: Vitamin B12 >1000 pg/mL (239-931)
[2016-04-27 06:40] LABS: Glucose,Whole Blood 181 mg/dL (75-99)
[2016-04-27] MEDS: LEVOTHYROXINE 88 MCG TAB PO SCH (06:50)
--- NOTE | 2016-04-27 06:56 | EEG ---
DATE OF SERVICE: 04/26/2016 REASON FOR TESTING: Encephalopathy. AGE: 60Y DESCRIPTION OF THE PROCEDURE: This EEG was performed using a 21-channel digital electroencephalograph, following the international 10 to 20 system. DESCRIPTION OF THE RECORDING: From the beginning of the tracing, and with the patient's eyes closed, the background rhythm was mostly consisting of 5 to 6 Hz theta frequency in the posterior occipital leads. No obvious asymmetry is seen. Frequent movement and muscle artifacts are noticed. Photic stimulation was performed with no driving response seen. No pathological waves were elicited. The patient remains awake throughout the tracing. No epileptiform discharges were seen. Her EKG lead showed a tachycardic rate with a normal rhythm. INTERPRETATION: This EEG is abnormal due to the presence of generalized slowing of the background rhythm, mostly in the theta range. This is consistent with moderate encephalopathy. No epileptiform discharges were seen. The absence of epileptiform discharges does not rule out the diagnosis of epilepsy, therefore, clinical correlation is recommended.
[2016-04-27] MEDS: ENOXAPARIN 40 MG/0.4 ML SYRINGE SQ SCH (08:49)
[2016-04-27] MEDS: PANTOPRAZOLE 40 MG/10 ML VIAL IV SCH ×2 (08:49→20:39)
[2016-04-27] MEDS: CHLORHEXIDINE GLUCONATE 15 ML CUP MUCOUS MEM SCH (09:18)
--- NOTE | 2016-04-27 10:42 | P.PN ---
Subjective Principal diagnosis: anemia possible GI bleed 60-year-old female history of schizoaffective disorder admitted with mental status changes requiring intubation with profound anemia without overt GI bleeding. Self extubation last night. Nursing reports difficulty swallowing and no episodes of hematemesis hematochezia melena since admission. Hemoglobin 8.3. She has received 2 units of blood since admission. Objective - Vital Signs Vital signs: Vital Signs Temp 98.1 F 04/27/16 08:00 Pulse 92 04/27/16 10:00 Resp 20 04/27/16 10:00 BP 103/60 04/27/16 10:00 Pulse Ox 97 04/27/16 10:00 Intake & Output 04/26/16 04/27/16 04/27/16 18:59 06:59 18:59 Intake Total 2401.885 2056.164 300 Output Total 595 615 240 Balance 998.212 601.164 60 Weight 121.8 kg 122.6 kg Intake: IV 900 825 300 Sodium Chloride 0.9% 1, 900 825 300 000 ml @ 75 mls/hr IV . [id number] [facility] Rx#:[id number] Intake, IV Titration 133.212 41.164 Amount Propofol 500 mg In Empty 58.212 41.164 Bag 1 bag @ Titrate IV . Q0M [facility]A Rx#:[id number] Sodium Chloride 0.9% 1, 75 000 ml @ 75 mls/hr IV . [id number] [facility]REEA Rx#:[id number] Tube Feeding 560 350 Output: Urine 595 615 240 Other: Voiding Method Indwelling Catheter Indwelling Catheter Indwelling Catheter # Bowel Movements 0 ABP, PAP, CO, CI - Last Documented Arterial Blood Pressure 118/54 - Exam General appearance: The patient is alert, in no acute distress. HET: Head is normocephalic and atraumatic. Pupils are equal and reactive. Oropharynx is clear without lesions. Neck: Supple without lymphadenopathy. Trachea midline. Heart: S1 S2. Regular rate and rhythm. Lungs: No crackles or wheezes are heard. Diminished in bases bilaterally. Abdomen: Soft, nontender, nondistended with bowel sounds. No peritoneal signs. No palpable organomegaly or masses. Extremities: Normal skin color and turgor. No cyanosis, rash, ulceration, clubbing, or edema. Radial and pedal pulses are 2/4 bilaterally. Tineo with clear yellow urine. Neurological: No focal deficits. Strength and sensation are grossly intact. - Labs CBC & Chem 7: 04/27/16 04:30 04/27/16 04:30 Labs: Abnormal Lab Results - Last 24 Hours (Table) 04/25/16 04/26/16 04/26/16 Range/Units 00:20 04:30 11:35 WBC (3.8-10.6) k/uL RBC (3.80-5.40) m/uL Hgb (11.4-16.0) gm/dL Hct (34.0-46.0) % MCV (80.0-100.0) fL RDW (11.5-15.5) % Plt Count (150-450) k/uL Neutrophils # (Manual) (1.3-7.7) k/uL Lymphocytes # (Manual) (1.0-4.8) k/uL Nucleated RBCs (0-0) /100 WBC Retic Count (0.5-2.0) % Carbon Dioxide (22-30) mmol/L BUN (7-17) mg/dL Glucose (74-99) mg/dL POC Glucose (mg/dL) 141 H (75-99) mg/dL Calcium (8.4-10.2) mg/dL Phosphorus (2.5-4.5) mg/dL Magnesium (1.6-2.3) mg/dL TIBC 238 L (265-497) ug/dL % Saturation 18.9 L (20-50) % Ferritin 430 H (11-264) ng/mL Vitamin B12 (239-931) pg/mL Crossmatch See Detail 04/26/16 04/26/16 04/26/16 Range/Units 16:12 16:50 22:10 WBC 15.3 H 17.3 H (3.8-10.6) k/uL RBC 2.13 L 2.14 L (3.80-5.40) m/uL Hgb 7.0 L* 7.0 L* (11.4-16.0) gm/dL Hct 21.7 L 22.0 L (34.0-46.0) % MCV 101.5 H 103.1 H (80.0-100.0) fL RDW 21.6 H 22.2 H (11.5-15.5) % Plt Count 70 L 65 L (150-450) k/uL Neutrophils # (Manual) 13.9 H 15.4 H (1.3-7.7) k/uL Lymphocytes # (Manual) 0.9 L 0.7 L (1.0-4.8) k/uL Nucleated RBCs 4 H 4 H (0-0) /100 WBC Retic Count (0.5-2.0) % Carbon Dioxide (22-30) mmol/L BUN (7-17) mg/dL Glucose (74-99) mg/dL POC Glucose (mg/dL) 151 H (75-99) mg/dL Calcium (8.4-10.2) mg/dL Phosphorus (2.5-4.5) mg/dL Magnesium (1.6-2.3) mg/dL TIBC (265-497) ug/dL % Saturation (20-50) % Ferritin (11-264) ng/mL Vitamin B12 (239-931) pg/mL Crossmatch 04/27/16 04/27/16 04/27/16 Range/Units 01:22 04:30 04:30 WBC 24.0 H (3.8-10.6) k/uL RBC 2.41 L (3.80-5.40) m/uL Hgb 8.3 L (11.4-16.0) gm/dL Hct 25.1 L (34.0-46.0) % MCV 104.1 H (80.0-100.0) fL RDW 21.5 H (11.5-15.5) % Plt Count 67 L (150-450) k/uL Neutrophils # (Manual) 20.9 H (1.3-7.7) k/uL Lymphocytes # (Manual) 0.8 L (1.0-4.8) k/uL Nucleated RBCs 6 H (0-0) /100 WBC Retic Count 9.2 H (0.5-2.0) % Carbon Dioxide 31 H (22-30) mmol/L BUN 31 H (7-17) mg/dL Glucose 188 H (74-99) mg/dL POC Glucose (mg/dL) 202 H (75-99) mg/dL Calcium 8.2 L (8.4-10.2) mg/dL Phosphorus 5.2 H (2.5-4.5) mg/dL Magnesium 2.5 H (1.6-2.3) mg/dL TIBC (265-497) ug/dL % Saturation (20-50) % Ferritin (11-264) ng/mL Vitamin B12 >1000 H (239-931) pg/mL Crossmatch 04/27/16 Range/Units 06:38 WBC (3.8-10.6) k/uL RBC (3.80-5.40) m/uL Hgb (11.4-16.0) gm/dL Hct (34.0-46.0) % MCV (80.0-100.0) fL RDW (11.5-15.5) % Plt Count (150-450) k/uL Neutrophils # (Manual) (1.3-7.7) k/uL Lymphocytes # (Manual) (1.0-4.8) k/uL Nucleated RBCs (0-0) /100 WBC Retic Count (0.5-2.0) % Carbon Dioxide (22-30) mmol/L BUN (7-17) mg/dL Glucose (74-99) mg/dL POC Glucose (mg/dL) 181 H (75-99) mg/dL Calcium (8.4-10.2) mg/dL Phosphorus (2.5-4.5) mg/dL Magnesium (1.6-2.3) mg/dL TIBC (265-497) ug/dL % Saturation (20-50) % Ferritin (11-264) ng/mL Vitamin B12 (239-931) pg/mL Crossmatch Assessment and Plan Plan: Impression: 60 year old female admitted with unresponsiveness requiring mechanical intubation with macrocytic anemia suggestive of acute GI bleed with acute blood loss anemia without overt GI bleeding at this time. Etiology of bleed unclear at this time. Review of medical records show no evidence of prior endoscopy. Plan: 1. IV protonix 40 mg BID. Speech/swallow evaluation. 2. Iron studies reviewed. 3. Observe for overt bleeding. Transfuse as indicated. Monitor CBC. 4. Will proceed with EGD evaluation tomorrow. Colonoscopy will be determined on upper endoscopy findings. Case was discussed with Dr. Adams. 5. Will follow with you. Assessment and plan of care discussed with Dr. Ramirez.
[2016-04-27 11:05] LABS: ABG HCO3 28 mmol/L (21-25); ABG PCO2 53 mmHg (35-45); ABG PH 7.35 (7.35-7.45); ABG PO2 89 mmHg (83-108); ABG TCO2 30 mmol/L (19-24)
[2016-04-27 11:06] LABS: ABG Base Excess 3.3 mmol/L
[2016-04-27 12:13] LABS: Glucose,Whole Blood 167 mg/dL (75-99)
--- NOTE | 2016-04-27 12:14 | P.PN ---
Subjective This is a pleasant 60-year-old female patient who had presented the emergency room on 04/24/2016 with altered mental status. She has a history of heart failure, hypertension, hyperlipidemia and seizure disorders. The patient had eventually became unresponsive and was intubated in the emergency department. She had been maintained on the ventilator through yesterday where plan for weaning trials today however the patient self extubated last evening. She was placed on 10 L of high flow nasal cannula and was maintaining O2 saturations in the mid 90s throughout the evening and into this morning. Presently she is resting fairly comfortably in bed. She is awake and alert. She is somewhat slow to respond. We are unclear if her baseline mental status. She has remained hemodynamically stable and is not currently on any pressors. He did have issues with anemia and thrombocytopenia and the plan was for possible bone marrow biopsy today per Dr. Adams. However, her numbers are slightly improved and he is holding off for now. She is status post 2 units of packed red blood cells and current hemoglobin 8.3. Her sputum was positive for methicillin sensitive staphylococcus aureus. Objective - Vital Signs Vital signs: Vital Signs Temp 98.1 F 04/27/16 08:00 Pulse 90 04/27/16 11:00 Resp 25 H 04/27/16 11:00 BP 127/68 04/27/16 11:00 Pulse Ox 94 L 04/27/16 11:00 Intake & Output 04/26/16 04/27/16 04/27/16 18:59 06:59 18:59 Intake Total 3131.156 3244.164 300 Output Total 595 615 240 Balance 998.212 601.164 60 Weight 121.8 kg 122.6 kg Intake: IV 900 825 300 Sodium Chloride 0.9% 1, 900 825 300 000 ml @ 75 mls/hr IV . [id number] [facility] Rx#:[id number] Intake, IV Titration 133.212 41.164 Amount Propofol 500 mg In Empty 58.212 41.164 Bag 1 bag @ Titrate IV . Q0M [facility] Rx#:[id number] Sodium Chloride 0.9% 1, 75 000 ml @ 75 mls/hr IV . [id number] [facility] Rx#:[id number] Tube Feeding 560 350 Output: Urine 595 615 240 Other: Voiding Method Indwelling Catheter Indwelling Catheter Indwelling Catheter # Bowel Movements 0 ABP, PAP, CO, CI - Last Documented Arterial Blood Pressure 111/50 - Exam GENERAL EXAM: Alert, slow to respond, comfortable in no apparent distress. HEAD: Normocephalic. EYES: Normal reaction of pupils, equal size. NOSE: Clear with pink turbinates. THROAT: No erythema or exudates. NECK: No masses, no JVD. CHEST: No chest wall deformity. LUNGS: Equal air entry with few scattered rhonchi, diminished. CVS: S1 and S2 normal with no audible murmurs, regular rhythm. ABDOMEN: No hepatosplenomegaly, normal bowel sounds, no guarding or rigidity. Extremities: There is trace peripheral edema. No clubbing, no cyanosis. Peripheral pulses are intact. - Labs CBC & Chem 7: 04/27/16 04:30 04/27/16 04:30 Labs: Abnormal Lab Results - Last 24 Hours (Table) 04/25/16 04/26/16 04/26/16 Range/Units 00:20 04:30 16:12 WBC 15.3 H (3.8-10.6) k/uL RBC 2.13 L (3.80-5.40) m/uL Hgb 7.0 L* (11.4-16.0) gm/dL Hct 21.7 L (34.0-46.0) % MCV 101.5 H (80.0-100.0) fL RDW 21.6 H (11.5-15.5) % Plt Count 70 L (150-450) k/uL Neutrophils # (Manual) 13.9 H (1.3-7.7) k/uL Lymphocytes # (Manual) 0.9 L (1.0-4.8) k/uL Nucleated RBCs 4 H (0-0) /100 WBC Retic Count (0.5-2.0) % ABG pCO2 (35-45) mmHg ABG HCO3 (21-25) mmol/L ABG Total CO2 (19-24) mmol/L Carbon Dioxide (22-30) mmol/L BUN (7-17) mg/dL Glucose (74-99) mg/dL POC Glucose (mg/dL) (75-99) mg/dL Calcium (8.4-10.2) mg/dL Phosphorus (2.5-4.5) mg/dL Magnesium (1.6-2.3) mg/dL TIBC 238 L (265-497) ug/dL % Saturation 18.9 L (20-50) % Ferritin 430 H (11-264) ng/mL Vitamin B12 (239-931) pg/mL Crossmatch See Detail 04/26/16 04/26/16 04/27/16 Range/Units 16:50 22:10 01:22 WBC 17.3 H (3.8-10.6) k/uL RBC 2.14 L (3.80-5.40) m/uL Hgb 7.0 L* (11.4-16.0) gm/dL Hct 22.0 L (34.0-46.0) % MCV 103.1 H (80.0-100.0) fL RDW 22.2 H (11.5-15.5) % Plt Count 65 L (150-450) k/uL Neutrophils # (Manual) 15.4 H (1.3-7.7) k/uL Lymphocytes # (Manual) 0.7 L (1.0-4.8) k/uL Nucleated RBCs 4 H (0-0) /100 WBC Retic Count (0.5-2.0) % ABG pCO2 (35-45) mmHg ABG HCO3 (21-25) mmol/L ABG Total CO2 (19-24) mmol/L Carbon Dioxide (22-30) mmol/L BUN (7-17) mg/dL Glucose (74-99) mg/dL POC Glucose (mg/dL) 151 H 202 H (75-99) mg/dL Calcium (8.4-10.2) mg/dL Phosphorus (2.5-4.5) mg/dL Magnesium (1.6-2.3) mg/dL TIBC (265-497) ug/dL % Saturation (20-50) % Ferritin (11-264) ng/mL Vitamin B12 (239-931) pg/mL Crossmatch 04/27/16 04/27/16 04/27/16 Range/Units 04:30 04:30 06:38 WBC 24.0 H (3.8-10.6) k/uL RBC 2.41 L (3.80-5.40) m/uL Hgb 8.3 L (11.4-16.0) gm/dL Hct 25.1 L (34.0-46.0) % MCV 104.1 H (80.0-100.0) fL RDW 21.5 H (11.5-15.5) % Plt Count 67 L (150-450) k/uL Neutrophils # (Manual) 20.9 H (1.3-7.7) k/uL Lymphocytes # (Manual) 0.8 L (1.0-4.8) k/uL Nucleated RBCs 6 H (0-0) /100 WBC Retic Count 9.2 H (0.5-2.0) % ABG pCO2 (35-45) mmHg ABG HCO3 (21-25) mmol/L ABG Total CO2 (19-24) mmol/L Carbon Dioxide 31 H (22-30) mmol/L BUN 31 H (7-17) mg/dL Glucose 188 H (74-99) mg/dL POC Glucose (mg/dL) 181 H (75-99) mg/dL Calcium 8.2 L (8.4-10.2) mg/dL Phosphorus 5.2 H (2.5-4.5) mg/dL Magnesium 2.5 H (1.6-2.3) mg/dL TIBC (265-497) ug/dL % Saturation (20-50) % Ferritin (11-264) ng/mL Vitamin B12 >1000 H (239-931) pg/mL Crossmatch 04/27/16 Range/Units 10:45 WBC (3.8-10.6) k/uL RBC (3.80-5.40) m/uL Hgb (11.4-16.0) gm/dL Hct (34.0-46.0) % MCV (80.0-100.0) fL RDW (11.5-15.5) % Plt Count (150-450) k/uL Neutrophils # (Manual) (1.3-7.7) k/uL Lymphocytes # (Manual) (1.0-4.8) k/uL Nucleated RBCs (0-0) /100 WBC Retic Count (0.5-2.0) % ABG pCO2 53 H (35-45) mmHg ABG HCO3 28 H (21-25) mmol/L ABG Total CO2 30 H (19-24) mmol/L Carbon Dioxide (22-30) mmol/L BUN (7-17) mg/dL Glucose (74-99) mg/dL POC Glucose (mg/dL) (75-99) mg/dL Calcium (8.4-10.2) mg/dL Phosphorus (2.5-4.5) mg/dL Magnesium (1.6-2.3) mg/dL TIBC (265-497) ug/dL % Saturation (20-50) % Ferritin (11-264) ng/mL Vitamin B12 (239-931) pg/mL Crossmatch Assessment and Plan Plan: Impression: #1 Acute hypoxic respiratory failure requiring mechanical ventilatory support secondary to methicillin sensitive Staphylococcus aureus pneumonia. Patient self extubated last evening. Currently maintaining O2 saturations in the mid 90s on 10 L of high flow nasal cannula. #2 Small bilateral pleural effusions #3 Anemia of unclear etiology. #4 Thrombocytopenia of unclear etiology. #5 Hyperlipidemia. #6 Hyper tension. #7 Diabetes mellitus. #8 Hypothyroidism. #9 Schizophrenia. Plan: The patient was seen and evaluated by Dr. Villalta. We'll attempt to keep the patient off the mechanical ventilator. We'll continue with high flow nasal cannula at 10 L/m. Should she continue to worsen or become hypercapnic we'll place her on BiPAP 12 over 5. If she continues to deteriorate we will reintubate the patient. We'll continue with bronchodilators and IV Solu- Medrol. We'll initiate Unasyn for the MSSA. She remains on Lovenox for DVT prophylaxis and Protonix for GI prophylaxis. Presently she is stable we'll continue with her current medications. We'll continue to monitor her here closely in the intensive care unit. We'll make further recommendations based on her clinical status.
[2016-04-27] MEDS ORDERED: AMPICILLIN-SULBACTAM 1.5 GM in SODIUM CHLORIDE 0.9% 50 ML IVPB SCH (12:15)
--- NOTE | 2016-04-27 15:58 | P.PN ---
Subjective Principal diagnosis: anemia, thrombocytopenia Pt extubated herself last night, she is on high fowlers position, notable labored breathing with difficulty speaking Objective - Vital Signs Vital signs: Vital Signs Temp 98.0 F 04/27/16 12:00 Pulse 92 04/27/16 14:00 Resp 22 04/27/16 14:00 BP 100/53 04/27/16 14:00 Pulse Ox 94 L 04/27/16 14:00 Intake & Output 04/26/16 04/27/16 04/27/16 18:59 06:59 18:59 Intake Total 7965.864 9838.164 600 Output Total 595 615 445 Balance 998.212 601.164 155 Weight 121.8 kg 122.6 kg Intake: IV 900 825 600 Sodium Chloride 0.9% 1, 900 825 600 000 ml @ 75 mls/hr IV . [id number] [facility] Rx#:[id number] Intake, IV Titration 133.212 41.164 Amount Propofol 500 mg In Empty 58.212 41.164 Bag 1 bag @ Titrate IV . Q0M [facility] Rx#:[id number] Sodium Chloride 0.9% 1, 75 000 ml @ 75 mls/hr IV . [id number] [facility] Rx#:[id number] Tube Feeding 560 350 Output: Urine 595 615 445 Other: Voiding Method Indwelling Catheter Indwelling Catheter Indwelling Catheter # Bowel Movements 0 0 ABP, PAP, CO, CI - Last Documented Arterial Blood Pressure 130/99 - Constitutional General appearance: Present: mild distress, obese - EENT EENT Comment(s): very dry mucus membranes - Neck Details: right supraclavicular lymph node, soft, fixed Neck: Present: lymphadenopathy - Respiratory Details: tachypnea, labored, difficulty speaking Respiratory: bilateral: diminished - Cardiovascular Heart sounds: normal: S1, S2 - Gastrointestinal General gastrointestinal: Present: soft - Genitourinary Genitourinary Comment(s): urine in [place] is grossly bloody - Integumentary Integumentary: Present: pale - Musculoskeletal Musculoskeletal: Present: generalized weakness - Psychiatric Psychiatric Comment(s): pt mumbling incoherently but did answer a few questions with yes/no answers that did seem appropriate responses - Labs CBC & Chem 7: 04/27/16 04:30 04/27/16 04:30 Labs: Abnormal Lab Results - Last 24 Hours (Table) 04/25/16 04/26/16 04/26/16 Range/Units 00:20 16:12 16:50 WBC 15.3 H (3.8-10.6) k/uL RBC 2.13 L (3.80-5.40) m/uL Hgb 7.0 L* (11.4-16.0) gm/dL Hct 21.7 L (34.0-46.0) % MCV 101.5 H (80.0-100.0) fL RDW 21.6 H (11.5-15.5) % Plt Count 70 L (150-450) k/uL Neutrophils # (Manual) 13.9 H (1.3-7.7) k/uL Lymphocytes # (Manual) 0.9 L (1.0-4.8) k/uL Nucleated RBCs 4 H (0-0) /100 WBC Retic Count (0.5-2.0) % ABG pCO2 (35-45) mmHg ABG HCO3 (21-25) mmol/L ABG Total CO2 (19-24) mmol/L Carbon Dioxide (22-30) mmol/L BUN (7-17) mg/dL Glucose (74-99) mg/dL POC Glucose (mg/dL) 151 H (75-99) mg/dL Calcium (8.4-10.2) mg/dL Phosphorus (2.5-4.5) mg/dL Magnesium (1.6-2.3) mg/dL Vitamin B12 (239-931) pg/mL Crossmatch See Detail 04/26/16 04/27/16 04/27/16 Range/Units 22:10 01:22 04:30 WBC 17.3 H 24.0 H (3.8-10.6) k/uL RBC 2.14 L 2.41 L (3.80-5.40) m/uL Hgb 7.0 L* 8.3 L (11.4-16.0) gm/dL Hct 22.0 L 25.1 L (34.0-46.0) % MCV 103.1 H 104.1 H (80.0-100.0) fL RDW 22.2 H 21.5 H (11.5-15.5) % Plt Count 65 L 67 L (150-450) k/uL Neutrophils # (Manual) 15.4 H 20.9 H (1.3-7.7) k/uL Lymphocytes # (Manual) 0.7 L 0.8 L (1.0-4.8) k/uL Nucleated RBCs 4 H 6 H (0-0) /100 WBC Retic Count 9.2 H (0.5-2.0) % ABG pCO2 (35-45) mmHg ABG HCO3 (21-25) mmol/L ABG Total CO2 (19-24) mmol/L Carbon Dioxide (22-30) mmol/L BUN (7-17) mg/dL Glucose (74-99) mg/dL POC Glucose (mg/dL) 202 H (75-99) mg/dL Calcium (8.4-10.2) mg/dL Phosphorus (2.5-4.5) mg/dL Magnesium (1.6-2.3) mg/dL Vitamin B12 (239-931) pg/mL Crossmatch 04/27/16 04/27/16 04/27/16 Range/Units 04:30 06:38 10:45 WBC (3.8-10.6) k/uL RBC (3.80-5.40) m/uL Hgb (11.4-16.0) gm/dL Hct (34.0-46.0) % MCV (80.0-100.0) fL RDW (11.5-15.5) % Plt Count (150-450) k/uL Neutrophils # (Manual) (1.3-7.7) k/uL Lymphocytes # (Manual) (1.0-4.8) k/uL Nucleated RBCs (0-0) /100 WBC Retic Count (0.5-2.0) % ABG pCO2 53 H (35-45) mmHg ABG HCO3 28 H (21-25) mmol/L ABG Total CO2 30 H (19-24) mmol/L Carbon Dioxide 31 H (22-30) mmol/L BUN 31 H (7-17) mg/dL Glucose 188 H (74-99) mg/dL POC Glucose (mg/dL) 181 H (75-99) mg/dL Calcium 8.2 L (8.4-10.2) mg/dL Phosphorus 5.2 H (2.5-4.5) mg/dL Magnesium 2.5 H (1.6-2.3) mg/dL Vitamin B12 >1000 H (239-931) pg/mL Crossmatch 04/27/16 Range/Units 12:10 WBC (3.8-10.6) k/uL RBC (3.80-5.40) m/uL Hgb (11.4-16.0) gm/dL Hct (34.0-46.0) % MCV (80.0-100.0) fL RDW (11.5-15.5) % Plt Count (150-450) k/uL Neutrophils # (Manual) (1.3-7.7) k/uL Lymphocytes # (Manual) (1.0-4.8) k/uL Nucleated RBCs (0-0) /100 WBC Retic Count (0.5-2.0) % ABG pCO2 (35-45) mmHg ABG HCO3 (21-25) mmol/L ABG Total CO2 (19-24) mmol/L Carbon Dioxide (22-30) mmol/L BUN (7-17) mg/dL Glucose (74-99) mg/dL POC Glucose (mg/dL) 167 H (75-99) mg/dL Calcium (8.4-10.2) mg/dL Phosphorus (2.5-4.5) mg/dL Magnesium (1.6-2.3) mg/dL Vitamin B12 (239-931) pg/mL Crossmatch Assessment and Plan (1) Adenopathy Narrative/Plan: Once pt has stabilized CT has been requested to evaluate lymphadenopathy. Status: Acute (2) Bicytopenia Narrative/Plan: Pt Hgb stable after transfusion with appropriate increase in Hgb, labs so far do not suggest hemolysis. Case was discussed with GI INSURANCE ACCOUNT ASSISTANT and agree with plan for endoscopy once pt has medically stabilized. Agree with transfusions to keep Hgb above 7. Platelet counts noted, no acute intervention today. Labs daily Status: Acute
[2016-04-27] MEDS: AMPICILLIN-SULBACTAM 1.5 GM in SODIUM CHLORIDE 0.9% 50 ML IVPB SCH ×2 (17:02→23:28)
[2016-04-27 17:47] LABS: Glucose,Whole Blood 163 mg/dL (75-99)
--- NOTE | 2016-04-27 19:22 | PN ---
DATE OF SERVICE: 04/27/2016 PRESENTING COMPLAINT: Acute respiratory failure. INTERVAL HISTORY: This is a patient who presented with change in mental status, acute respiratory failure; self-extubated this morning. Awake. Following simple commands. On a nasal cannula. Patient will be going for EGD tomorrow. No evidence of bleeding. Per Dr. Adams, the patient could have marrow suppression from Depakote. Review of systems attempted. Current medications are reviewed that include IV Unasyn, Solu-Medrol. On examination, temperature 98, pulse 94, respiration 23, blood pressure 130/63, pulse ox 95% on 10 L. GENERAL APPEARANCE: Lying in bed, awake, tired -appearing. EYES: Pupils equal. Conjunctivae pale. NECK: JVD not raised. Mass not palpable. RESPIRATORY: Effort normal. LUNGS: Diminished breath sounds. CARDIOVASCULAR: First and second sounds normal. No edema. ABDOMEN: Soft, nontender. Liver and spleen not palpable. PSYCHIATRY: Answering simple questions. INVESTIGATIONS: White count 24, hemoglobin 8.3, platelets 67. Increased neutrophils. Reticulocyte count 9.2. BUN 31, creatinine 0.70. Vitamin B12 more than 1000. ASSESSMENT: 1. Acute hypoxic respiratory failure, status post ventilator. Patient self-extubated this morning. Currently on high-flow nasal cannula. 2. Hypothyroidism, chronic. 3. Morbid obesity; body mass index of 43.3. 4. Chronic urinary incontinence. 5. Diabetes insipidus. 6. Acute metabolic encephalopathy on presentation. 7. Acute severe anemia. No evidence of gastrointestinal blood loss. This could be marrow suppression from Depakote. 8. Severe thrombocytopenia. 9. Schizophrenia. PLAN: Continue current medication and treatment plan. Dr. Adams has been consulted. CT scan. Also Psychiatry is consulted. Will follow.
[2016-04-27 21:32] LABS: ANA w/Reflex to Titer POSITIVE (NEGATIVE)
[2016-04-27] MEDS: DESMOPRESSIN 0.2 MG TAB PO SCH ×2 (22:05→22:07)
[2016-04-27 23:09] LABS: Glucose,Whole Blood 153 mg/dL (75-99)
[2016-04-28] MEDS: IPRATROPIUM-ALBUTEROL 3 ML NEB INHALATION SCH ×6 (03:23→22:22)
[2016-04-28] MEDS: SODIUM CHLORIDE 0.9% 1,000 ML IV SCH ×2 (04:00→17:45)
[2016-04-28 05:01] LABS: Anisocytosis Moderate; CH 33.1; CHCM 31.9; HCT 22.3 % (34.0-46.0); HGB 7.5 gm/dL (11.4-16.0); Hypochromasia Moderate; MCH 35.5 pg (25.0-35.0); MCHC 33.7 g/dL (31.0-37.0); MCV 105.3 fL (80.0-100.0); Macrocytosis Marked; Mean Platelet Volume 8.1; Poikilocytosis Slight; RBC 2.12 m/uL (3.80-5.40); RDW 21.5 % (11.5-15.5)
[2016-04-28 05:11] LABS: Anion Gap 6 mmol/L; Blood Urea Nitrogen 34 mg/dL (7-17); Calcium 8.2 mg/dL (8.4-10.2); Carbon Dioxide 32 mmol/L (22-30); Chloride 105 mmol/L (98-107); Glucose 158 mg/dL (74-99); Magnesium 2.6 mg/dL (1.6-2.3); Non-African American GFR(MDRD) >60 (>60 ml/min/1.73 sqM); Phosphorous 3.6 mg/dL (2.5-4.5); Potassium 4.9 mmol/L (3.5-5.1); Sodium 143 mmol/L (137-145)
[2016-04-28 05:37] LABS: Add Differential Manual Differential
[2016-04-28 05:41] LABS: Band Neutrophils % 0.5 %; Manual Review Performed; Nucleated Red Blood Cells 3 /100 WBC (0-0); Polychromasia Present; Total Cells Counted 200; WBC 17.5 k/uL (3.8-10.6)
[2016-04-28 06:15] LABS: Glucose,Whole Blood 165 mg/dL (75-99)
[2016-04-28] MEDS: INSULIN LISPRO (humaLOG) 300 UNIT/3 ML VIAL SQ SCH ×3 (06:15→17:17)
[2016-04-28] MEDS: PANTOPRAZOLE 40 MG/10 ML VIAL IV SCH ×2 (08:20→20:38)
[2016-04-28] MEDS: methylPREDNISolone SOD SUCCI 125 MG/2 ML VIAL IV SCH ×3 (08:20→23:17)
--- NOTE | 2016-04-28 08:33 | CONS ---
DATE OF CONSULTATION: 04/27/2016 CHIEF COMPLAINT: Altered mental status. HISTORY OF PRESENT ILLNESS: Mrs. Agarwal is a 60-year-old female who is being evaluated today on 04/27/2016 by the neurology service per the request of Dr. Allen for altered mental status. The patient was transferred to [facility] Emergency Room from her residential due to increasing confusion. She was found to be severely anemic with a hemoglobin of 7.6. She does have history of chronic anemia with a baseline hemoglobin at 10.0. The patient became less responsive in the emergency room and she had to be sedated and ( ). A CT scan of the brain was obtained, which showed no acute abnormalities. There was generalized atrophy is seen. The patient remained in the intensive care unit and was followed by Pulmonology. She slowly did improve mentally and earlier today, she self extubated herself and is doing well off of the ventilator. Her CBC shows leukocytosis at 24.0, anemia with a hemoglobin of 8.3 and hematocrit of 21%, and thrombocytopenia at 67,000. Hematology is following the patient regarding the anemia and thrombocytopenia. Her urine drug screen on arrival was positive for opiates. In reviewing her home medications, she is not on any opiate analgesics. Her basic metabolic profile today was normal except for elevated BUN at 31. I did review her EEG, which showed evidence of moderate encephalopathy. No epileptiform discharges were seen. PAST MEDICAL HISTORY: Asthma, diabetes, dyslipidemia, hypertension, hypothyroidism, history of appendectomy. She also has history of schizophrenia. SOCIAL HISTORY: There is no history of any tobacco, alcohol or drug use. FAMILY HISTORY: Positive for strokes. HOME MEDICATIONS: Reviewed in the chart. ALLERGIES: ASPIRIN. REVIEW OF SYSTEMS: Per history of present illness and otherwise negative. PHYSICAL EXAM: Vital signs show a temperature of 98.0, pulse 90, respirations 27, blood pressure 122/61. GENERAL APPEARANCE: The patient is a mildly obese, elderly female who appears to be in no acute distress. HEENT: Normocephalic, atraumatic. No obvious facial asymmetry is seen. Poor dentition is noticed. Neck is supple with no masses felt. CARDIOVASCULAR: Regular rate and rhythm. ABDOMEN: Nontender, nondistended. Extremities showed edema with no clubbing seen. NEUROLOGICAL EXAM: The patient is awake and oriented x3. Speech is very soft. Language testing appears to be normal. She does move all 4 extremities to command with no obvious lateralizing weakness. She does have mild weakness in her lower extremities compared to her upper extremities. Sensory exam was normal to light touch in all 4 extremities. Mild postural tremors are seen. No seizure-like activity is noticed. IMPRESSION: 1. Altered mental status, improved. 2. Acute multifactorial encephalopathy. 3. Leukocytosis. 4. Anemia. 5. Elevated BUN. RECOMMENDATIONS: The patient's altered mental status has improved and she is oriented x3 at the time of my evaluation. The patient's exact baseline is unknown. I did review her CT scan of the brain, which showed no acute abnormalities and her EEG showed no epileptiform discharges. Moderate encephalopathy was noticed on her EEG. No further inpatient neurological workup is needed. Continue antibiotic therapy for her leukocytosis. Hematology is following the patient for her thrombocytopenia and anemia. I will continue to follow with you. Further recommendations to follow. Thank you for allowing me to participate in the care of your patient. If you have any questions, please feel free to contact me.
[2016-04-28] MEDS: AMPICILLIN-SULBACTAM 1.5 GM in SODIUM CHLORIDE 0.9% 50 ML IVPB SCH ×3 (08:34→23:17)
--- NOTE | 2016-04-28 09:52 | P.PN ---
Subjective Progress note dated 04/26/2016 60-year-old female who apparently presented to the emergency department with mental status changes. As a history of heart failure hypertension hyperlipidemia and seizures. The patient that was apparently having worsening mental status over the last few days prior to admission. She became unresponsive. She was actually intubated in the emergency department. The patient's currently on the ventilator. We are going to do a daily eruption of sedation and were hoping that we can have a spontaneous breathing trial and her. Chest x-ray shows fluid overload and may be either an infiltrate or effusion at the right base. Dr. Adams ambulance mechanic thinks she might be having hemolysis. She has a history of asthma diabetes hyperlipidemia hypertension hypothyroidism and Parkinson's disease. She also apparently carries with her diagnosis of diabetes insipidus. Progress note dated 04/28/2016 60-year-old woman who presented to the emergency department with mental status changes. She has history of heart failure hypertension hyperlipidemia and seizures. The patient self extubated herself yesterday. Doing relatively well today. She is apparently going to have an endoscopy today to see with a can figure out where she might be bleeding from. She came with a very low hemoglobin initially. Currently she is getting O2 at 4 L. Also getting appointment 9 IV at 75 mL an hour. Sitting up in the chair. Much more awake and alert. She also suffers some Parkinson's disease and diabetes insipidus. Objective - Vital Signs Vital signs: Vital Signs Temp 98.3 F 04/28/16 04:00 Pulse 87 04/28/16 08:37 Resp 22 04/28/16 07:00 BP 107/52 04/28/16 07:00 Pulse Ox 98 04/28/16 07:00 Intake & Output 04/27/16 04/28/16 04/28/16 18:59 06:59 18:59 Intake Total 975 891 81 Output Total 755 450 75 Balance 220 441 6 Weight 122.6 kg 118.9 kg Intake: IV 975 891 81 Pressure bag 66 6 Sodium Chloride 0.9% 1, 975 825 75 000 ml @ 75 mls/hr IV . [id number] ANDREEA Rx#:[id number] Output: Urine 755 450 75 Other: Voiding Method Indwelling Catheter Indwelling Catheter # Bowel Movements 0 0 ABP, PAP, CO, CI - Last Documented Arterial Blood Pressure 114/53 - Exam Currently on the ventilator. In no distress. Currently on sedation. HEENT examination is grossly unremarkable. Endotracheal tube and NG tube in place. Mucous membranes are moist. Neck supple. Full range of motion. No adenopathy. Cardiovascular examination reveals regular rhythm rate. S1 and S2 normal. She' s not tachycardic. No distinct murmur. Lungs reveal diminished breath sounds. A few scattered rhonchi. A few crackles are noted. No wheezes. Abdomen soft bowel sounds are heard. Extremities are intact. - Labs CBC & Chem 7: 04/28/16 04:30 04/28/16 04:30 Labs: Abnormal Lab Results - Last 24 Hours (Table) 04/27/16 04/27/16 04/27/16 Range/Units 04:30 04:30 10:45 WBC (3.8-10.6) k/uL RBC (3.80-5.40) m/uL Hgb (11.4-16.0) gm/dL Hct (34.0-46.0) % MCV (80.0-100.0) fL MCH (25.0-35.0) pg RDW (11.5-15.5) % Plt Count (150-450) k/uL Neutrophils # (Manual) (1.3-7.7) k/uL Lymphocytes # (Manual) (1.0-4.8) k/uL Nucleated RBCs (0-0) /100 WBC Haptoglobin 207.0 H (31.2-198.0) mg/dL ABG pCO2 53 H (35-45) mmHg ABG HCO3 28 H (21-25) mmol/L ABG Total CO2 30 H (19-24) mmol/L Carbon Dioxide (22-30) mmol/L BUN (7-17) mg/dL Creatinine (0.52-1.04) mg/dL Glucose (74-99) mg/dL POC Glucose (mg/dL) (75-99) mg/dL Calcium (8.4-10.2) mg/dL Magnesium (1.6-2.3) mg/dL Total Protein (PEP) 8.4 H (6.2-8.2) g/dL RBC Folate 1,238 H (280 - 791) ng/mL AMARA Screen POSITIVE H (NEGATIVE) 04/27/16 04/27/1604/27/17 Range/Units 12:10 17:45 23:08 WBC (3.8-10.6) k/uL RBC (3.80-5.40) m/uL Hgb (11.4-16.0) gm/dL Hct (34.0-46.0) % MCV (80.0-100.0) fL MCH (25.0-35.0) pg RDW (11.5-15.5) % Plt Count (150-450) k/uL Neutrophils # (Manual) (1.3-7.7) k/uL Lymphocytes # (Manual) (1.0-4.8) k/uL Nucleated RBCs (0-0) /100 WBC Haptoglobin (31.2-198.0) mg/dL ABG pCO2 (35-45) mmHg ABG HCO3 (21-25) mmol/L ABG Total CO2 (19-24) mmol/L Carbon Dioxide (22-30) mmol/L BUN (7-17) mg/dL Creatinine (0.52-1.04) mg/dL Glucose (74-99) mg/dL POC Glucose (mg/dL) 167 H 163 H 153 H (75-99) mg/dL Calcium (8.4-10.2) mg/dL Magnesium (1.6-2.3) mg/dL Total Protein (PEP) (6.2-8.2) g/dL RBC Folate (280 - 791) ng/mL AMARA Screen (NEGATIVE) 04/28/16 04/28/16 04/28/16 Range/Units 04:30 04:30 06:14 WBC 17.5 H (3.8-10.6) k/uL RBC 2.12 L (3.80-5.40) m/uL Hgb 7.5 L (11.4-16.0) gm/dL Hct 22.3 L (34.0-46.0) % MCV 105.3 H (80.0-100.0) fL MCH 35.5 H (25.0-35.0) pg RDW 21.5 H (11.5-15.5) % Plt Count 60 L (150-450) k/uL Neutrophils # (Manual) 15.9 H (1.3-7.7) k/uL Lymphocytes # (Manual) 0.4 L (1.0-4.8) k/uL Nucleated RBCs 3 H (0-0) /100 WBC Haptoglobin (31.2-198.0) mg/dL ABG pCO2 (35-45) mmHg ABG HCO3 (21-25) mmol/L ABG Total CO2 (19-24) mmol/L Carbon Dioxide 32 H (22-30) mmol/L BUN 34 H (7-17) mg/dL Creatinine 0.50 L (0.52-1.04) mg/dL Glucose 158 H (74-99) mg/dL POC Glucose (mg/dL) 165 H (75-99) mg/dL Calcium 8.2 L (8.4-10.2) mg/dL Magnesium 2.6 H (1.6-2.3) mg/dL Total Protein (PEP) (6.2-8.2) g/dL RBC Folate (280 - 791) ng/mL AMARA Screen (NEGATIVE) Assessment and Plan (1) Diabetes Status: Acute (2) Hyperlipidemia Status: Acute (3) Hypertension Status: Acute (4) Diabetes insipidus Status: Acute (5) Anemia Status: Acute (6) Encephalopathy Status: Acute (7) Ventilator dependence Status: Acute Plan: Plan Brianna we'll go ahead and come up with the formulation for enteral nutrition on this patient. She apparently not been eating well prior to admission. This apparently was occurring for about 2 or 3 days before hand. In addition, I'll review all her medications. She apparently was taking DDAVP at 0.4 mg every night orally. We'll have to replace that. She is also on a number of other medications that will have to replace. We may need to put lines in her including an art line and central line. Prognosis is guarded. We'll make sure she is on updrafts. Currently she is getting appointment 9 IV at 75 mL an hour. She's getting propofol at 7 mics per kilogram per minute. Her vent settings include the assist control mode rate of 14 to be bumped up to 22 tidal volume of 550 to be reduced to 350 and FiO2 40% and 5 of PEEP. On those settings, the pO2 was 105 the pCO2 was 35 and a pH of 7.5. She has received will receive 2 units of PRBCs. Plan dated 04/26/2016 The patient will be giving be given a daily eruption of sedation and a possible spontaneous breathing trial. We'll hold the propofol or DIProvan. The patient' s currently on the assist control mode rate of 22 out of I'm to 350 FiO2 40% to be dropped down to 35% and a PEEP of 5 blood gases show pO2 107 a PaCO2 38 and a pH of 7.42. The patient is getting vital high protein at 30 with a goal of 55. She's getting appointment 9 IV at 75 mL an hour and Diprovan at 15 mics per kilogram per minute. Plan dated 04/28/2016 The patient seemed be doing relatively well. We'll apparently have endoscopy today to figure out the source of bleeding. Labs x-rays medications are reviewed. She likely can be transferred out of the unit either today or tomorrow. Recommendations suggestions are forthcoming. Prognosis is guarded. Time with Patient: Greater than 30
[2016-04-28 10:30] LABS: Free Kappa Lt Chain Qnt, Serum 27.89 mg/dL (0.33 - 1.94); Kappa/Lambda Light Chain Ratio 0.98 (0.26 - 1.65)
[2016-04-28] MEDS ORDERED: PROPOFOL 10 MG/ML 20 ML VIAL IV ONE (11:45)
[2016-04-28] MEDS ORDERED: LACTATED RINGERS 1,000 ML IV ONE (11:48)
--- NOTE | 2016-04-28 11:51 | P.CN ---
Psychiatric Consult - . Consult date: 04/28/16 Consult:: IDENTIFYING DATA: Ms. Agarwal is a 60-year-old single female who has a history of a schizophrenia. HISTORY OF PRESENT ILLNESS: Reviewed the medical record and attempted to interview Mrs. Agarwal. Her extended care facility referred her to the ED for evaluation of acute mental status changes. According to the EMR, staff from the extended care facility reported a change in her mental status over 2 days prior to admission and a marked deterioration in her condition over the few hours prior to her presentation where she became unresponsive. She was intubated and admitted to ICU for evaluation of an acute encephalopathy. I attempted to interview her in the ICU. She made eye contact but her speech was unintelligible. PAST PSYCHIATRIC HISTORY: According to EMR she has a history of a schizophrenia and 3 prior admissions to our psychiatric unit; the last was in March 2008. She is open to [facility] for residential support services. Her continuous pillowcase cutter is Swapna Lincoln. I spoke with Ms. Lincoln. She stated that Todd had been in a adult foster usp "for many years" until February 2016 when, due to declining health, she was placed in a halfway. Ms. Lincoln last met with her in March 2016. On transfer to the halfway the [facility] team has managed her psychiatric care. She received mental health services for most of her adult life. Her last psychiatric assessment at [facility] was in November 2015. She had been treated with fluphenazine decanoate 50 mg monthly since August 2014. SUBSTANCE USE HISTORY: According to the record she had a history of marijuana and alcohol use. SOCIAL HISTORY: According to the record she is single and has no children. She had a legal guardian, Garcia Ayers. MENTAL STATUS EXAM: She presented as a disheveled appearing obese elderly woman who was sitting in a high follow-up position. She maintained eye contact and contact and appeared to attend to questions. She showed no abnormal involuntary movements. Because her speech was unintelligible was unable to complete a full assessment including a cognitive assessment. IMPRESSIONS: She is an elderly woman with long history of a schizophrenia who [facility] with abrupt changes in mental status. The current diagnosis is a multifactorial encephalopathy. I doubt that her current clinical status is related to her chronic mental illness. PLAN: Considering the severity of her medical status do not recommend psychotropic medications at this time. If her clinical status was to change and there are questions whether the changes are related to her chronic mental illness then please reconsult psychiatry. Thank you for the consult.. 04/28/16 11:31
--- NOTE | 2016-04-28 12:04 | P.PCN ---
Date of Procedure: 04/28/16 Procedure(s) Performed: BRIEF HISTORY: Patient is a 60-year-old, pleasant, white female, admitted to the hospital with altered mental status for she which she was intubated and subsequent extubated 2 days later. Patient has history of schizophrenia. At the time of admission to hospital she was noted to have a hemoglobin of 7 with macrocytosis. Hepatology was consulted and evaluated the patient. Because of a competent a iron deficiency anemia, she is scheduled for an upper endoscopy to evaluate further. PROCEDURE PERFORMED: Esophagogastroduodenoscopy with biopsy. PREOPERATIVE DIAGNOSIS: Severe symptomatic anemia. IV sedation per anesthesia. PROCEDURE: After informed consent was obtained, the patient was brought into the endoscopy unit. IV conscious sedation was administered by Anesthesia under continuous monitoring. Initially the Olympus GIF-140 video endoscope was inserted into the mouth. Esophagus intubated without any difficulty. It was gradually advanced into the stomach and duodenum and carefully examined. The bulb and the second part of the duodenum appeared normal. Biopsies were done from the duodenum to rule out celiac disease. The scope at this time was withdrawn to the stomach, adequately insufflated with air, and upon careful examination, mucosa of the antrum appeared normal. In the proximal body of the stomach there were small gastric polyps seen and this was biopsied. The rest of the, body, cardia and the fundus appeared normal. The scope was then withdrawn into the esophagus. The GE junction was located at 39 cm from the incisors. The esophagus appeared normal. There were no erosions or ulcerations seen and the patient tolerated the procedure well. IMPRESSION: 1. Small gastric polyps. 2. No evidence of esophagitis, peptic ulcer disease or angiectasia. RECOMMENDATIONS: The findings of this examination were discussed with the patient . At this time will await the biopsy results. Her diet will be advanced as tolerated. She will need to be investigated further with a colonoscopy possibly early next week.
[2016-04-28] MEDS: LEVOTHYROXINE 88 MCG TAB PO SCH (12:38)
[2016-04-28] MEDS: LACTATED RINGERS 1,000 ML IV SCH (12:47)
[2016-04-28 13:12] LABS: Glucose,Whole Blood 145 mg/dL (75-99)
--- NOTE | 2016-04-28 14:37 | P.PN ---
Subjective Principal diagnosis: Altered mental status This is a 60-year-old female continuing be evaluated by the neurology service for altered mental status. She was transferred from her intermediate due to increasing confusion. She was found to be severely anemic. A CT of the brain showed no acute abnormalities. While in the ER she required intubation for respiratory distress, was transferred to the ICU. She had self extubated on the ICU and was doing well off the ventilator. She has been transferred out of ICU where I see her today. 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 This is not felt to be a neurological. A swallowing study has been ordered, and she is also status post EGD to investigate possible causes of her severe anemia. At the time my evaluation she is resting comfortably in her bed in no acute distress. Her EEG did show evidence of moderate encephalopathy. No seizure activity was seen. She does have a significant history of schizophrenia, for which psychiatry has been consulted. Objective - Vital Signs Vital signs: Vital Signs Temp 96.6 F L 04/28/16 12:00 Pulse 90 04/28/16 12:00 Resp 18 04/28/16 12:00 BP 119/61 04/28/16 12:00 Pulse Ox 96 04/28/16 12:00 Intake & Output 04/27/16 04/28/16 04/28/16 18:59 06:59 18:59 Intake Total 975 891 697 Output Total 755 450 200 Balance 220 441 497 Weight 122.6 kg 118.9 kg 118.9 kg Intake: IV 975 891 337 Pressure bag 66 12 Sodium Chloride 0.9% 1, 975 825 225 000 ml @ 75 mls/hr IV . [id number] ANDREEA Rx#:[id number] Intake, IV Titration 50 Amount Ampicillin-Sulbactam 1.5 50 gm In Sodium Chloride 0.9 % 50 ml @ 100 mls/hr IVPB Q8HR ANDREEA Rx#:[id number] Blood Product 310 Rc As-1 Unit 310 [id number] Output: Urine 755 450 200 Other: Voiding Method Indwelling Catheter Indwelling Catheter Indwelling Catheter # Bowel Movements 0 0 ABP, PAP, CO, CI - Last Documented Arterial Blood Pressure 113/44 - Constitutional General appearance: Present: no acute distress, obese - EENT Eyes: Present: EOMI, PERRLA. Absent: abnormal pupil, ptosis ENT: Present: hearing grossly normal - Neck Neck: Present: normal ROM. Absent: rigidity - Respiratory Respiratory: negative: prolonged expiration, prolonged inspiration - Cardiovascular Rhythm: regular - Gastrointestinal General gastrointestinal: Present: soft. Absent: tenderness - Neurologic Neurologic Comment(s): Patient is alert awake and oriented to self and place. She is extremely hard to understand but is able to give affirmative response to appropriate date. She responds to all commands appropriately. Speech is dysphonic. There is no facial asymmetry. Strength is 5 minus out of 5 bilateral upper and lower extremities. There is no sensory deficit. Mild upper extremity tremors are seen. There is no seizure-like activity appreciated. - Labs CBC & Chem 7: 04/28/16 04:30 04/28/16 04:30 Labs: Abnormal Lab Results - Last 24 Hours (Table) 04/25/16 04/27/16 04/27/16 Range/Units 00:20 04:30 04:30 WBC (3.8-10.6) k/uL RBC (3.80-5.40) m/uL Hgb (11.4-16.0) gm/dL Hct (34.0-46.0) % MCV (80.0-100.0) fL MCH (25.0-35.0) pg RDW (11.5-15.5) % Plt Count (150-450) k/uL Neutrophils # (Manual) (1.3-7.7) k/uL Lymphocytes # (Manual) (1.0-4.8) k/uL Nucleated RBCs (0-0) /100 WBC Haptoglobin 207.0 H (31.2-198.0) mg/dL Carbon Dioxide (22-30) mmol/L BUN (7-17) mg/dL Creatinine (0.52-1.04) mg/dL Glucose (74-99) mg/dL POC Glucose (mg/dL) (75-99) mg/dL Calcium (8.4-10.2) mg/dL Magnesium (1.6-2.3) mg/dL Total Protein (PEP) 8.4 H (6.2-8.2) g/dL Albumin (PEP) 2.16 L (3.80-4.90) g/dL Rraep-2-Dyyxplxgr 0.45 H (0.10-0.40) g/dL Gamma Globulins 4.17 H (0.70-1.50) g/dL RBC Folate 1,238 H (280 - 791) ng/mL AMARA Screen POSITIVE H (NEGATIVE) Free [place] LC, Quant 27.89 H (0.33 - 1.94) mg/dL Free Lambda LC, Quant 28.36 H (0.57 - 2.63) mg/dL Crossmatch See Detail 04/27/16 04/27/16 04/28/16 Range/Units 17:45 23:08 04:30 WBC 17.5 H (3.8-10.6) k/uL RBC 2.12 L (3.80-5.40) m/uL Hgb 7.5 L (11.4-16.0) gm/dL Hct 22.3 L (34.0-46.0) % MCV 105.3 H (80.0-100.0) fL MCH 35.5 H (25.0-35.0) pg RDW 21.5 H (11.5-15.5) % Plt Count 60 L (150-450) k/uL Neutrophils # (Manual) 15.9 H (1.3-7.7) k/uL Lymphocytes # (Manual) 0.4 L (1.0-4.8) k/uL Nucleated RBCs 3 H (0-0) /100 WBC Haptoglobin (31.2-198.0) mg/dL Carbon Dioxide (22-30) mmol/L BUN (7-17) mg/dL Creatinine (0.52-1.04) mg/dL Glucose (74-99) mg/dL POC Glucose (mg/dL) 163 H 153 H (75-99) mg/dL Calcium (8.4-10.2) mg/dL Magnesium (1.6-2.3) mg/dL Total Protein (PEP) (6.2-8.2) g/dL Albumin (PEP) (3.80-4.90) g/dL Menwy-8-Pxacuajfa (0.10-0.40) g/dL Gamma Globulins (0.70-1.50) g/dL RBC Folate (280 - 791) ng/mL AMARA Screen (NEGATIVE) Free [place] LC, Quant (0.33 - 1.94) mg/dL Free Lambda LC, Quant (0.57 - 2.63) mg/dL Crossmatch 04/28/16 04/28/16 04/28/16 Range/Units 04:30 06:14 13:10 WBC (3.8-10.6) k/uL RBC (3.80-5.40) m/uL Hgb (11.4-16.0) gm/dL Hct (34.0-46.0) % MCV (80.0-100.0) fL MCH (25.0-35.0) pg RDW (11.5-15.5) % Plt Count (150-450) k/uL Neutrophils # (Manual) (1.3-7.7) k/uL Lymphocytes # (Manual) (1.0-4.8) k/uL Nucleated RBCs (0-0) /100 WBC Haptoglobin (31.2-198.0) mg/dL Carbon Dioxide 32 H (22-30) mmol/L BUN 34 H (7-17) mg/dL Creatinine 0.50 L (0.52-1.04) mg/dL Glucose 158 H (74-99) mg/dL POC Glucose (mg/dL) 165 H 145 H (75-99) mg/dL Calcium 8.2 L (8.4-10.2) mg/dL Magnesium 2.6 H (1.6-2.3) mg/dL Total Protein (PEP) (6.2-8.2) g/dL Albumin (PEP) (3.80-4.90) g/dL Csxtq-2-Itijvaiiq (0.10-0.40) g/dL Gamma Globulins (0.70-1.50) g/dL RBC Folate (280 - 791) ng/mL AMARA Screen (NEGATIVE) Free [place] LC, Quant (0.33 - 1.94) mg/dL Free Lambda LC, Quant (0.57 - 2.63) mg/dL Crossmatch Assessment and Plan (1) Altered mental status Status: Resolved (2) Anemia Status: Chronic (3) Bicytopenia Status: Acute (4) Diabetes Status: Chronic (5) Encephalopathy Status: Acute (6) Paranoid schizophrenia Status: Chronic Plan: The patient's mental status continues to be improved. Her encephalopathy was multifactorial given her significant psychiatric history, metabolic history, and opiate use. Continue workup and treatment for her anemia and dysphonia. A modified swallowing study is pending. No further neurological workup is required at this point. We may be reconsult and on as-needed basis. Recommend skilled physical and speech therapy. I have performed a history and physical on the above patient. I have reviewed the above note, and agree.
--- NOTE | 2016-04-28 16:11 | FL ---
EXAMINATION TYPE: FL barium swallow w video DATE OF EXAM: 04/28/2016 3:04 PM COMPARISON: NONE HISTORY: Dysphagia. FINDINGS: Patient was evaluated in real-time fluoroscopy in the lateral projection while ingesting barium mixe d with liquids. Some karen aspiration noted on thin liquids. Patient was able to cough and clear. Hansel e residuals noted in the vallecula. See dictated report from speech pathology.
[2016-04-28 17:00] LABS: Glucose,Whole Blood 133 mg/dL (75-99)
[2016-04-28] MEDS: DESMOPRESSIN 0.2 MG TAB PO SCH (20:00)
[2016-04-28] MEDS ORDERED: IPRATROPIUM-ALBUTEROL 3 ML NEB INHALATION PRN (22:22)
[2016-04-28 23:57] LABS: Glucose,Whole Blood 163 mg/dL (75-99)
[2016-04-29] MEDS: LEVOTHYROXINE 88 MCG TAB PO SCH ×2 (05:35→19:14)
[2016-04-29 06:21] LABS: Glucose,Whole Blood 148 mg/dL (75-99)
--- NOTE | 2016-04-29 06:28 | PN ---
DATE OF SERVICE: 04/28/2016 PRESENTING COMPLAINT: Acute respiratory failure. INTERVAL HISTORY: This is a patient who presents with change in mental status, intubated in the ER. Patient did self extubate yesterday. Patient has been moved out of the ICU. Did not do well with modified barium swallow. Following commands, talking, tired appearing. Review of systems was attempted. Current medications are reviewed and include IV Unasyn. On examination, temperature 97, pulse 85, respiration 16, blood pressure 126/63, pulse ox 99% on 3 liters. GENERAL APPEARANCE: Lying in bed, awake, tired. EYES: Conjunctivae pale. NECK: JVD not raised. Mass not palpable. RESPIRATORY: Effort normal. LUNGS: Diminished breath sounds. CARDIOVASCULAR: First and second sounds normal. No edema. ABDOMEN: Soft, nontender. Liver and spleen not palpable. PSYCHIATRY: Awake, answering simple questions. INVESTIGATIONS: White count 7.5, hemoglobin 7.5, platelets 60, potassium 4.9. BUN 34, creatinine 0.50. Accu-Cheks are noted. ASSESSMENT: 1. Acute hypoxic respiratory failure, status post ventilator. Patient self extubated yesterday. 2. Hypothyroidism, chronic. 3. Morbid obesity, body mass index of 43.3. 4. Chronic urinary incontinence. 5. Diabetes insipidus. 6. Acute metabolic encephalopathy on presentation. 7. Acute severe anemia. No evidence of gastrointestinal blood loss. Source could be medicine from Depakote. 8. Severe thrombocytopenia. 9. Schizophrenia. PLAN: Continue current medication and treatment plan. Patient failed swallow evaluation today, will attempt pureed diet again tomorrow.
[2016-04-29] MEDS: INSULIN LISPRO (humaLOG) 300 UNIT/3 ML VIAL SQ SCH ×5 (06:34→23:37)
[2016-04-29] MEDS: IPRATROPIUM-ALBUTEROL 3 ML NEB INHALATION SCH ×4 (07:10→19:47)
[2016-04-29] MEDS: AMPICILLIN-SULBACTAM 1.5 GM in SODIUM CHLORIDE 0.9% 50 ML IVPB SCH ×3 (07:55→23:22)
[2016-04-29] MEDS: SODIUM CHLORIDE 0.9% 1,000 ML IV SCH ×2 (07:55→20:00)
[2016-04-29] MEDS: methylPREDNISolone SOD SUCCI 125 MG/2 ML VIAL IV SCH ×3 (07:56→23:22)
[2016-04-29] MEDS: PANTOPRAZOLE 40 MG/10 ML VIAL IV SCH ×2 (07:56→21:01)
--- NOTE | 2016-04-29 10:54 | P.PN ---
Subjective Principal diagnosis: Unresponsiveness and acute respiratory failure The patient has improved significantly and has been transferred out of the ICU. She is actually not requiring oxygen anymore. Objective - Vital Signs Vital signs: Vital Signs Temp 96.6 F L 04/29/16 07:00 Pulse 88 04/29/16 07:20 Resp 18 04/29/16 07:00 BP 133/63 04/29/16 07:00 Pulse Ox 97 04/29/16 07:00 Intake & Output 04/28/16 04/29/16 04/29/16 18:59 06:59 18:59 Intake Total 997 825 Output Total 200 Balance 797 825 Weight 118.9 kg 116 kg Intake: IV 637 825 Pressure bag 12 Sodium Chloride 0.9% 1, 525 825 000 ml @ 75 mls/hr IV . [id number] ANDREEA Rx#:[id number] Intake, IV Titration 50 Amount Ampicillin-Sulbactam 1.5 50 gm In Sodium Chloride 0.9 % 50 ml @ 100 mls/hr IVPB Q8HR ANDREEA Rx#:[id number] Blood Product 310 Rc As-1 Unit 310 [id number] Output: Urine 200 Other: Voiding Method Indwelling Catheter Incontinent Incontinent # Voids 2 ABP, PAP, CO, CI - Last Documented Arterial Blood Pressure 113/44 - Constitutional General appearance: Present: no acute distress - EENT Eyes: Present: PERRLA ENT: Present: hearing grossly normal, normal oropharynx - Respiratory Respiratory: bilateral: CTA - Cardiovascular Rhythm: regular Heart sounds: normal: S1, S2 - Gastrointestinal General gastrointestinal: Present: normal bowel sounds, soft - Integumentary Integumentary: Present: normal - Neurologic Neurologic Comment(s): Dysarthria noted. Is not known if this is chronic Neurologic: Present: CNII-XII intact - Musculoskeletal Musculoskeletal: Present: generalized weakness - Psychiatric Psychiatric Comment(s): The patient's responses are not coherent. She is able to follow commands - Labs CBC & Chem 7: 04/28/16 04:30 04/28/16 04:30 Labs: Abnormal Lab Results - Last 24 Hours (Table) 04/25/16 04/27/16 04/27/16 Range/Units 00:20 04:30 04:30 Haptoglobin 207.0 H (31.2-198.0) mg/dL POC Glucose (mg/dL) (75-99) mg/dL Total Protein (PEP) 8.4 H (6.2-8.2) g/dL Albumin (PEP) 2.16 L (3.80-4.90) g/dL Nrxsp-6-Vtyxcrgiy 0.45 H (0.10-0.40) g/dL Gamma Globulins 4.17 H (0.70-1.50) g/dL RBC Folate 1,238 H (280 - 791) ng/mL AMARA Screen POSITIVE H (NEGATIVE) Free [place] LC, Quant 27.89 H (0.33 - 1.94) mg/dL Free Lambda LC, Quant 28.36 H (0.57 - 2.63) mg/dL Crossmatch See Detail 04/28/16 04/28/16 04/28/16 Range/Units 13:10 16:59 23:55 Haptoglobin (31.2-198.0) mg/dL POC Glucose (mg/dL) 145 H 133 H 163 H (75-99) mg/dL Total Protein (PEP) (6.2-8.2) g/dL Albumin (PEP) (3.80-4.90) g/dL Peibw-9-Bgagxfnuk (0.10-0.40) g/dL Gamma Globulins (0.70-1.50) g/dL RBC Folate (280 - 791) ng/mL AMARA Screen (NEGATIVE) Free [place] LC, Quant (0.33 - 1.94) mg/dL Free Lambda LC, Quant (0.57 - 2.63) mg/dL Crossmatch 04/29/16 Range/Units 06:19 Haptoglobin (31.2-198.0) mg/dL POC Glucose (mg/dL) 148 H (75-99) mg/dL Total Protein (PEP) (6.2-8.2) g/dL Albumin (PEP) (3.80-4.90) g/dL Ntfec-3-Puobabvlk (0.10-0.40) g/dL Gamma Globulins (0.70-1.50) g/dL RBC Folate (280 - 791) ng/mL AMARA Screen (NEGATIVE) Free [place] LC, Quant (0.33 - 1.94) mg/dL Free Lambda LC, Quant (0.57 - 2.63) mg/dL Crossmatch Assessment and Plan (1) Bicytopenia Narrative/Plan: At this time a definite etiology is not clear. I was initially concerned about hemolysis due to the elevated reticulocyte count. However on hemolysis labs including LDH, haptoglobin, as well as bilirubin are normal. Hemoglobin is starting to stabilize. Platelets are declined slowly to about 60. The W BC differential overall looks better. Possibility in this case, was marrow recovery after an acute insult such as infection or bleeding. EGD did not show any definite source of bleeding. Iron studies were actually normal, but could be so in cases of an acute type of bleed. We will await gastric and duodenal biopsies that were done. The plan is to proceed with a colonoscopy and the patient is felt to be stable, per my discussion with gastroenterology. The Patient's cultures were positive in the sputum and the urine. She is on appropriate antibiotics for the same. Therefore, at this time, the clinical impression is that the most likely cause is marrow affected by and acute insult. Cytopenia labs are negative so far. The initial dysplastic changes in left shift noted on the peripheral smear in this situation, could be due to chronic Depakote use. At this time we'll continue to follow counts with supportive treatment as needed. Assuming that the above clinical impression is correct, the count should show spontaneous improvement back to her baseline as she recovers. Status: Acute (2) Adenopathy Narrative/Plan: CT of the chest abdomen and pelvis was ordered but the note from initially because of the patient's clinical condition. She is much more stable at this time. This will be reordered. Status: Acute (3) Ventilator dependence Status: Acute
[2016-04-29 12:01] LABS: Glucose,Whole Blood 155 mg/dL (75-99)
[2016-04-29 12:29] LABS: Ionized Calcium 5.3 mg/dL (4.5-5.3)
[2016-04-29 12:38] LABS: Anion Gap 7 mmol/L; Calcium 8.5 mg/dL (8.4-10.2); Carbon Dioxide 30 mmol/L (22-30); Chloride 110 mmol/L (98-107); Glucose 151 mg/dL (74-99); Non-African American GFR(MDRD) >60 (>60 ml/min/1.73 sqM); Sodium 147 mmol/L (137-145); Total Protein 7.4 g/dL (6.3-8.2); Triglycerides 226 mg/dL (<150)
[2016-04-29 12:40] LABS: Blood Urea Nitrogen 33 mg/dL (7-17); Phosphorous 3.3 mg/dL (2.5-4.5); Potassium 4.9 mmol/L (3.5-5.1)
[2016-04-29 12:41] LABS: ALT 11 U/L (9-52); AST 25 U/L (14-36); Alkaline Phosphatase 75 U/L (38-126); Magnesium 2.4 mg/dL (1.6-2.3)
[2016-04-29] MEDS ORDERED: 1: AMINO ACID 4.25%-D10W+LYTES*E* 1,000 ML 2: MVI, ADULT NO.4 WITH VIT K 10 ML, TRACE ( IV SCH ×3 (13:00)
[2016-04-29] MEDS ORDERED: MVI, ADULT NO.4 WITH VIT K 10 ML, TRACE (CONC-1ML/DOSE) 1 ML in AMINO ACID 4.25%-D10W+L... IV ONE ×3 (14:00)
[2016-04-29] MEDS: LACTATED RINGERS 1,000 ML IV SCH (14:07)
[2016-04-29] MEDS: FAT EMULSION 20% 250 ML IV SCH (14:07)
[2016-04-29 17:21] LABS: Glucose,Whole Blood 186 mg/dL (75-99)
[2016-04-29] MEDS: DIVALPROEX ER 500 MG TAB.ER.24H PO SCH ×2 (19:14→21:01)
[2016-04-29] MEDS: OXYBUTYNIN CHLORIDE 5 MG TAB PO SCH (21:02)
[2016-04-29] MEDS: OLANZapine 10 MG TAB PO SCH (21:02)
[2016-04-29] MEDS: DESMOPRESSIN 0.2 MG TAB PO SCH (21:02)
[2016-04-29 23:37] LABS: Glucose,Whole Blood 214 mg/dL (75-99)
[2016-04-30] MEDS: LEVOTHYROXINE 88 MCG TAB PO SCH (05:43)
[2016-04-30 06:25] LABS: Glucose,Whole Blood 221 mg/dL (75-99)
[2016-04-30] MEDS: INSULIN LISPRO (humaLOG) 300 UNIT/3 ML VIAL SQ SCH ×3 (06:25→17:17)
[2016-04-30] MEDS ORDERED: 1: AMINO ACID 4.25%-D10W+LYTES*E* 1,000 ML 2: MVI, ADULT NO.4 WITH VIT K 10 ML, TRACE ( IV SCH ×3 (07:00)
[2016-04-30] MEDS: IPRATROPIUM-ALBUTEROL 3 ML NEB INHALATION SCH ×4 (07:05→19:41)
--- NOTE | 2016-04-30 07:24 | PN ---
DATE OF SERVICE: 04/29/2016 PRESENTING COMPLAINT: Acute respiratory failure. INTERVAL HISTORY: This is a patient who presented with change in mental status. Intubated in the ER. Has been now on the medical floor. Looking much better today. Attempting to talk, but tired. I asked the nurse to do bedside applesauce and patient did well without any choking. Review of systems was attempted for constitutional, cardiovascular, GI, pulmonary; relevant findings as above. Current medications are reviewed. On examination, temperature 97.6, pulse 85, respiration 18, blood pressure 130/78, pulse ox 92% on 3 liters. GENERAL APPEARANCE: Lying in bed awake. EYES: Pupils equal. Conjunctivae normal. NECK: JVD not raised. Mass not palpable. RESPIRATORY: Effort normal. LUNGS: Diminished breath sounds. CARDIOVASCULAR: First and second sounds normal. No edema. ABDOMEN: Soft, nontender. Liver and spleen not palpable. PSYCHIATRY: Answering questions, more appropriately. NEUROLOGICAL: Moving all 4 limbs. INVESTIGATIONS: Potassium 4.9, BUN 33, creatinine 0.40. ASSESSMENT: 1. Acute hypoxic respiratory failure, status post ventilator. 2. Hypothyroidism, chronic. 3. Morbid obesity, body mass index 43.3. 4. Chronic urinary incontinence. 5. Diabetes insipidus. 6. Acute metabolic encephalopathy on presentation. 7. Acute severe anemia. No evidence of GI bleed. Source could be marrow suppression from Depakote. 8. Severe thrombocytopenia. 9. Schizophrenia. PLAN: Patient's home medications will be resumed now that she is able to swallow. Aspiration precautions to be maintained. This was discussed with the nurse. Follow.
[2016-04-30] MEDS: AMPICILLIN-SULBACTAM 1.5 GM in SODIUM CHLORIDE 0.9% 50 ML IVPB SCH ×2 (07:41→16:07)
[2016-04-30] MEDS: OXYBUTYNIN CHLORIDE 5 MG TAB PO SCH ×3 (07:42→21:16)
[2016-04-30] MEDS: methylPREDNISolone SOD SUCCI 125 MG/2 ML VIAL IV SCH ×2 (07:42→16:07)
[2016-04-30] MEDS: DIVALPROEX ER 500 MG TAB.ER.24H PO SCH ×3 (07:42→21:15)
[2016-04-30] MEDS: PANTOPRAZOLE 40 MG/10 ML VIAL IV SCH (07:43)
[2016-04-30 08:14] LABS: Anisocytosis Moderate; CH 33.9; CHCM 31.5; HCT 23.9 % (34.0-46.0); HGB 7.3 gm/dL (11.4-16.0); Hypochromasia Moderate; MCH 33.2 pg (25.0-35.0); MCHC 30.4 g/dL (31.0-37.0); MCV 109.1 fL (80.0-100.0); Macrocytosis Marked; Mean Platelet Volume 8.1; Poikilocytosis Slight; RBC 2.19 m/uL (3.80-5.40); RDW 21.9 % (11.5-15.5); WBC (Perox) 12.17
[2016-04-30 08:36] LABS: Anion Gap 11 mmol/L; Blood Urea Nitrogen 31 mg/dL (7-17); Calcium 8.6 mg/dL (8.4-10.2); Carbon Dioxide 29 mmol/L (22-30); Chloride 107 mmol/L (98-107); Glucose 211 mg/dL (74-99); Magnesium 2.2 mg/dL (1.6-2.3); Non-African American GFR(MDRD) >60 (>60 ml/min/1.73 sqM); Potassium 4.4 mmol/L (3.5-5.1); Sodium 147 mmol/L (137-145)
[2016-04-30] MEDS: SODIUM CHLORIDE 0.9% 1,000 ML IV SCH ×2 (09:30→22:42)
[2016-04-30 09:33] LABS: Reticulocyte % 12.4 % (0.5-2.0)
[2016-04-30 10:37] LABS: Add Differential Manual Differential
[2016-04-30 10:41] LABS: Band Neutrophils % 5.5 %; Metamyelocytes % 2.5 %; Nucleated Red Blood Cells 3 /100 WBC (0-0); Total Cells Counted 200; WBC 12.4 k/uL (3.8-10.6)
[2016-04-30 10:42] LABS: Polychromasia Present
[2016-04-30 10:43] LABS: Toxic Vacuolation Present
[2016-04-30 10:44] LABS: Toxic Granulation Present
[2016-04-30 11:39] LABS: Glucose,Whole Blood 211 mg/dL (75-99)
[2016-04-30] MEDS ORDERED: RX INFO: IV CONTRAST WAS GIVEN 1 EACH MISC MISCELLANE PRN (14:50)
[2016-04-30] MEDS: FAT EMULSION 20% 250 ML IV SCH (14:59)
[2016-04-30] MEDS: IOHEXOL 350 MG/ML 25 ML BOTTLE (ORAL USE) PO PRN ×2 (16:07→17:18)
[2016-04-30] MEDS: PANTOPRAZOLE SODIUM 40 MG GRANULE PKT PO SCH (17:03)
--- NOTE | 2016-04-30 19:30 | CT ---
EXAMINATION TYPE: CT ChestAbdPelvis w con DATE OF EXAM: 04/30/2016 6:40 PM COMPARISON: NONE HISTORY: Lymphadenopathy. CT DLP: 2491.60 mGycm. Automated Exposure Control for Dose Reduction was Utilized. CONTRAST: CT scan of the thorax, abdomen and pelvis is performed with oral and with IV Contrast, patient inject ed with 100 mL of Omnipaque 300. FINDINGS: LUNGS: Exam is suboptimal as is degraded by patient respiratory motion artifact. There are small size d bilateral pleural effusions extending to lung apex level. There is associated compressive atelectas is in both lower lobes. No concerning parenchymal mass is identified. No pneumothorax is seen bilater ally. Flattening of trachea and bronchi is likely product of expiratory phase imaging. MEDIASTINUM: There are enlarged bilateral hilar lymph nodes. There are enlarged paratracheal lymph n odes, for reference right paratracheal lymph node measures 2.0 x 1.4 cm on axial image 14. Mild cardi omegaly is present. No pericardial effusion is seen. OTHER: There are multiple enlarged bilateral axillary lymph nodes. For reference largest posterior de ep left axillary lymph node measures 2.1 x 1.3 cm on axial image 13. One of the larger deep right axi llary lymph nodes measures 1.9 x 1.4 cm on axial image 15. Supraclavicular adenopathy is suspected bu t not completely imaged. LIVER/GB: Liver size is upper limits of normal. Gallbladder has distended margins. PANCREAS: Distal pancreatic body and tail appear within normal limits pancreatic head and proximal alexander dy show low density could reflect nonenhancement versus ill-defined fluid after fat replaced atrophy. Correlation for acute pancreatitis advised to help determine etiology SPLEEN: Spleen is enlarged measuring 17.5 cm on long axis on axial image 54. ADRENALS: No significant abnormality is seen. KIDNEYS: No significant abnormality is seen. BOWEL: The oral contrast reaches level of the splenic flexure. There is no suspicious small or large bowel dilatation seen. Some diverticula are scattered throughout the colon. Moderate fecal material i s slightly prominent at several levels particularly the rectum and cecum. GENITAL ORGANS: Small sized postmenopausal anteverted uterus is present. LYMPH NODES: There are suspicious prominent but predominantly subcentimeter bilateral external iliac and groin lymph nodes. For reference left external iliac lymph node measures 1.8 x 1.2 cm on axial im age 112. Similar prominent retroperitoneal lymph nodes along the aorta and IVC are identified. For re ference aortocaval lymph node measures 1.8 x 0.9 cm on axial image 69. OSSEOUS STRUCTURES: No significant abnormality is seen. OTHER: There is moderate amount of free fluid in the pelvis. There is small amount of diffuse intra-a bdominal fluid. There is moderate diffuse soft tissue anasarca. IMPRESSION: 1. Splenomegaly with slightly prominent liver and adenopathy is suspected above and below diaphragm a s detailed above. Consider neoplasm/lymphoma. Consider PET/CT correlation. 2. Small bilateral pleural effusions with moderate diffuse soft tissue anasarca and small to moderate amount of abdominal and pelvic ascites, probable desired fluid overload state, clinical correlation advised. 3. Attention to proximal pancreas favor atrophy with fluid related to ascites, acute necrotizing panc reatitis felt less likely, clinical correlation advised. 4. Overall nonobstructive bowel gas pattern. Areas of mild to moderate colonic fecal stasis however a re noted.
[2016-04-30] MEDS: DESMOPRESSIN 0.2 MG TAB PO SCH ×2 (20:14→21:15)
[2016-04-30] MEDS: OLANZapine 10 MG TAB PO SCH ×2 (20:15→21:15)
[2016-05-01 01:05] LABS: Glucose,Whole Blood 162 mg/dL (75-99)
[2016-05-01] MEDS: methylPREDNISolone SOD SUCCI 125 MG/2 ML VIAL IV SCH ×4 (01:07→23:45)
[2016-05-01] MEDS: INSULIN LISPRO (humaLOG) 300 UNIT/3 ML VIAL SQ SCH ×5 (01:07→23:45)
[2016-05-01 06:03] LABS: Glucose,Whole Blood 161 mg/dL (75-99)
[2016-05-01] MEDS: LEVOTHYROXINE 88 MCG TAB PO SCH (06:35)
[2016-05-01 06:58] LABS: Methylmalonic Acid 0.28 umol/L (<0.40)
[2016-05-01] MEDS: DIVALPROEX ER 500 MG TAB.ER.24H PO SCH ×2 (08:00→20:07)
[2016-05-01] MEDS: OXYBUTYNIN CHLORIDE 5 MG TAB PO SCH ×2 (08:00→20:07)
[2016-05-01] MEDS: AMOXIC-POT CLAV 875-125MG 1 EACH TAB PO SCH ×2 (08:01→20:07)
[2016-05-01] MEDS: PANTOPRAZOLE SODIUM 40 MG GRANULE PKT PO SCH ×2 (08:01→17:16)
[2016-05-01] MEDS: IPRATROPIUM-ALBUTEROL 3 ML NEB INHALATION SCH ×4 (08:29→19:41)
[2016-05-01 09:43] LABS: Anion Gap 9 mmol/L; Blood Urea Nitrogen 24 mg/dL (7-17); Calcium 8.6 mg/dL (8.4-10.2); Carbon Dioxide 33 mmol/L (22-30); Chloride 106 mmol/L (98-107); Glucose 142 mg/dL (74-99); Magnesium 2.1 mg/dL (1.6-2.3); Non-African American GFR(MDRD) >60 (>60 ml/min/1.73 sqM); Phosphorous 4.4 mg/dL (2.5-4.5); Potassium 4.5 mmol/L (3.5-5.1); Sodium 148 mmol/L (137-145)
--- NOTE | 2016-05-01 10:53 | PN ---
DATE OF SERVICE: 04/30/2016 PRESENTING COMPLAINT: Acute respiratory failure. INTERVAL HISTORY: This is a patient who presented with change of mental status was intubated in the ER. Yesterday we tried the patient on a pur?ed diet. She did really well, now eating rather well, awake and actually communicating much better. Awaiting input from psychiatry. Did speak to Dr. Adams. He thinks the patient has anemia may be related to infection and/or side effect of drugs. Review of systems done for constitutional, cardiovascular, GI, pulmonary; relevant findings as above. Current medications are reviewed and include IV Unasyn. On examination, temperature 97.6, pulse 85, respiration 18, blood pressure 135/70, pulse ox 92% on 3 liters. GENERAL APPEARANCE: Lying in bed awake. EYES: Pupils equal conjunctivae normal. NECK: JVD not raised. Mass not palpable. RESPIRATORY: Effort normal. LUNGS: Diminished breath sounds. CARDIOVASCULAR: First and second sounds normal. No edema. ABDOMEN: Soft, nontender. Liver and spleen not palpable. PSYCHIATRY: Awake, answering questions better. INVESTIGATIONS: White count 12.4, hemoglobin 7.3. Platelets 126. Sodium 147. Potassium 4.4. BUN 31, creatinine 0.42. Urine culture growing enterococcus faecalis. Sputum is growing Staph aureus. ASSESSMENT: 1. Possible pneumonia from staff aureus/methicillin susceptible staph aureus. 2. Acute urinary tract infection from Enterococcus faecalis. 3. Acute hypoxic respiratory failure status post ventilator. 4. Hypothyroidism, chronic. 5. Morbid obesity, body mass index of 43.3. 6. Chronic urinary incontinence. 7. Diabetes insipidus. 8. Acute metabolic encephalopathy on presentation. 9. Acute severe anemia, could be from underlying infection and marrow suppression from medications. 10. Severe thrombocytopenia, improved. 11. Schizophrenia. PLAN: Did tell the nurse to inform psychiatry if the patient not communicating to look at the medications. Patient has been afebrile. White count coming down, we will switch the patient over to Augmentin. Diet has already been advanced. Doing well on the same. Will follow.
[2016-05-01] MEDS: SODIUM CHLORIDE 0.9% 1,000 ML IV SCH (12:28)
[2016-05-01 12:30] LABS: Glucose,Whole Blood 202 mg/dL (75-99)
--- NOTE | 2016-05-01 15:28 | FL ---
Modified barium swallow. HISTORY: Dysphagia. Modified barium swallow was performed with the department of speech pathology. The patient was prese nted with various consistencies of barium. Mild aspiration noted with thin liquid barium. Full report is to follow from the department of speech pathology. Impression: Mild aspiration noted with thin liquid barium.
[2016-05-01 18:06] LABS: Glucose,Whole Blood 210 mg/dL (75-99)
[2016-05-01] MEDS: DESMOPRESSIN 0.2 MG TAB PO SCH (20:06)
[2016-05-01] MEDS: OLANZapine 10 MG TAB PO SCH (20:07)
[2016-05-01 23:45] LABS: Glucose,Whole Blood 216 mg/dL (75-99)
[2016-05-02] MEDS: SODIUM CHLORIDE 0.9% 1,000 ML IV SCH ×2 (00:27→15:46)
[2016-05-02 06:10] LABS: Glucose,Whole Blood 178 mg/dL (75-99)
[2016-05-02] MEDS: LEVOTHYROXINE 88 MCG TAB PO SCH (06:31)
[2016-05-02] MEDS: INSULIN LISPRO (humaLOG) 300 UNIT/3 ML VIAL SQ SCH ×4 (06:31→23:40)
[2016-05-02] MEDS: methylPREDNISolone SOD SUCCI 125 MG/2 ML VIAL IV SCH ×2 (08:00→17:20)
[2016-05-02] MEDS: AMOXIC-POT CLAV 875-125MG 1 EACH TAB PO SCH ×2 (08:00→21:19)
[2016-05-02] MEDS: PANTOPRAZOLE SODIUM 40 MG GRANULE PKT PO SCH ×2 (08:00→17:20)
[2016-05-02] MEDS: DIVALPROEX ER 500 MG TAB.ER.24H PO SCH ×2 (08:01→21:20)
[2016-05-02] MEDS: OXYBUTYNIN CHLORIDE 5 MG TAB PO SCH ×2 (08:01→21:20)
[2016-05-02] MEDS: IPRATROPIUM-ALBUTEROL 3 ML NEB INHALATION SCH ×5 (09:24→19:31)
[2016-05-02 09:31] LABS: Anion Gap 5 mmol/L; Blood Urea Nitrogen 22 mg/dL (7-17); Calcium 8.3 mg/dL (8.4-10.2); Carbon Dioxide 36 mmol/L (22-30); Chloride 102 mmol/L (98-107); Glucose 135 mg/dL (74-99); Magnesium 1.8 mg/dL (1.6-2.3); Non-African American GFR(MDRD) >60 (>60 ml/min/1.73 sqM); Phosphorous 3.3 mg/dL (2.5-4.5); Potassium 4.2 mmol/L (3.5-5.1); Sodium 143 mmol/L (137-145)
--- NOTE | 2016-05-02 10:53 | PN ---
DATE OF SERVICE: 05/01/2016 PRESENTING COMPLAINT: Acute respiratory failure. INTERVAL HISTORY: This patient who presented with acute respiratory failure had to be intubated. Doing much better. Underwent modified barium swallow and did rather well. Patient is also getting treated for UTI, pneumonia. Communicating better. Review of systems done for constitutional, cardiovascular, GI, pulmonary; relevant findings as above. Current medications are reviewed that include Augmentin, Solu-Medrol. On examination, temperature 97.4, pulse 50, respirations 16, blood pressure 130/60, pulse ox 98% on 3 liters. GENERAL APPEARANCE: Lying in bed far more awake, talking. EYES: Pupils equal. Conjunctivae normal. NECK: JVD not raised. Mass not palpable. RESPIRATORY: Effort normal. LUNGS: Diminished breath sounds. CARDIOVASCULAR: First and second sounds normal. No edema. ABDOMEN: Soft. Nontender. Liver and spleen not palpable. PSYCHIATRY: Awake, answering questions rather appropriately though slow. INVESTIGATIONS: Sodium 148, potassium 4.5. BUN 24, creatinine 0.41. Accu-Cheks are noted. ASSESSMENT: 1. Possible pneumonia from Methicillin-sensitive Staphylococcus aureus. 2. Acute urinary tract infection from Enterococcus faecalis. 3. Acute hypoxic respiratory failure, status post ventilator dependent. 4. Hypothyroidism, chronic. 5. Morbid obesity, body mass index of 43.3. 6. Chronic urinary incontinence. 7. Diabetes insipidus, chronic. 8. Acute metabolic encephalopathy on presentation, probably drug-induced, could be from infection. 9. Acute severe anemia, could be from underlying infection or marrow suppression from medication. 10. Severe thrombocytopenia, improved. 11. Schizophrenia. PLAN: I called [phone] Middleton to re-evaluate the patient from medication and psychiatry standpoint. I spoke to Emi from speech, who did modified barium swallow. Patient's swallowing is greatly improved. Patient's CT scan did show some splenomegaly and there is significant lymphadenopathy. Plan at this point, we will discuss with Dr. Adams and go from there.
[2016-05-02 10:55] VITALS: BMI 41.1
[2016-05-02 12:06] LABS: Glucose,Whole Blood 153 mg/dL (75-99)
--- NOTE | 2016-05-02 15:27 | P.GSCN ---
History of Present Illness Consult date: 05/02/16 Reason for Consult: Lymph node biopsy right subclavicular Requesting physician: Sky Robins History of present illness: 60-year-old female looking older than stated age being seen by surgical service at the request of the attending for biopsy lymph node right subclavicular area. Patient is not able to provide any adequate health history. Patient is lying in bed and appears in no acute distress. The health history has been obtained from reviewing prior computerized records and interviewing nursing staff. Apparently the patient presented on the day of admission to the emergency room on April 25 from an [facility] facility where the patient over the last several days was noted to be experiencing acute mental status changes and was found unresponsive. Hemoglobin in the emergency room was found to be 7.6. Baseline is 10. Patient was transferred from [facility] Where patient is a resident Patient was seen in the emergency room intubated by the emergency room physician and transferred to the intensive care unit patient does have a legal guardian Analilia Blood. Patient did receive 2 units of packed red blood cells. Patient was followed by GI & neurology and hematology service Was found to have macrocytic anemia suggestive of acute GI bleed with acute blood loss anemia without overt GI bleeding at this time. Etiology of bleed unclear at this time. Review of medical records show no evidence of prior endoscopy. Patient did undergo an EGD on April [address] Whitley. It shows small gastric polyps. No evidence of esophagitis, peptic ulcer disease or angiectasis GI recommended that the patient will need to be investigated further with a colonoscopy possibly to be done within the next 1-2 weeks. Patient was stabilized and able to be transferred to a stepdown unit from the ICU on the 28 of April. Additionally patient was followed by Dr. Adams parole hearing officer with concerns that the patient may be having hemolysis patient's hemoglobin stabilized after having transfusion with an appropriate increase in hemoglobin so far does not suggest hemolysis Patient did have a CAT scan of the abdomen pelvis with contrast as was done on the . In summary it showed multiple enlarged bilateral axillary lymph nodes supraclavicular adenopathy was suspected per CAT scan this is what prompted a surgical consultation by hematology oncology for biopsies Patient's past medical history is significant for schizoaffective disorder, hyperlipidemia, hypertension, hypothyroid and Parkinson's disease surgical consult requested for an excisional biopsy. The [facility] would be a good target. As lymphoma is in the differential , recommend sending specimen fresh for flow cytometry. Per Dr. Adams recommendations Review of Systems Not able to adequately obtain patient has no past medical history recall Past Medical History Past Medical History: Asthma, Diabetes Mellitus, Hyperlipidemia, Hypertension, Thyroid Disorder Additional Past Medical History / Comment(s): Parkinson's -like symptoms due to medication, diabetes insipidus. History of Any Multi-Drug Resistant Organisms: None Reported Past Surgical History: Appendectomy Additional Past Surgical History / Comment(s): Additional Medical Hx: Parkinson' s Disease; Additional Past Anesthesia/Blood Transfusion Reaction / Comm: Unknown Past Psychological History: Schizophrenia Additional Psychological History / Comment(s): Patient receives outpatient counselling and sees Dr. Muse. Smoking Status: Never smoker Past Alcohol Use History: None Reported Additional Past Alcohol Use History / Comment(s): Patient denies any history of smoking, medical marijuana or marijuana use or alcohol use. Patient is single and has no children. Past Drug Use History: None Reported - Past Family History Father Family Medical History: CVA/TIA Additional Family Medical History / Comment(s): Patient father in his 80s from his stroke and also her mother in her 80s from a stroke. She has one brother and 2 sisters which she has no contact with. Patient has a guardian. Medications and Allergies Home Medications Medication Instructions Recorded Confirmed Type Magnesium Oxide [Mag-Ox] 400 mg PO DAILY 06/24/14 04/24/16 History Acetaminophen Tab [Tylenol] 325 mg PO DAILY PRN 02/24/16 04/24/16 History Divalproex ER [Depakote ER] 1,000 mg PO HS 02/24/16 04/24/16 History Divalproex ER [Depakote ER] 500 mg PO DAILY 02/24/16 04/24/16 History LORazepam [Ativan] 1 mg PO Q6H PRN 02/24/16 04/24/16 History Loratadine/Pseudoephedrine 1 tab PO BID PRN 02/24/16 04/24/16 History [Alavert D-12 Allergy-Sinus Tab] OLANZapine 20 mg PO HS 02/24/16 04/24/16 History Oxybutynin Chloride 5 mg PO BID 02/24/16 04/24/16 History fluvoxaMINE [Luvox] 50 mg PO BID 02/24/16 04/24/16 History Magnesium Hydroxide [Milk of 2,400 mg PO Q72H PRN 04/24/16 04/24/16 History Magnesia] Sennosides-Docusate Sodium 1 tab PO HS 04/24/16 04/24/16 History [Senokot-S] Allergies Allergy/AdvReac Type Severity Reaction Status Date / Time aspirin AdvReac Nausea & Verified 04/24/16 19:29 Vomiting Surgical - Exam Vital Signs Temp Pulse Resp BP Pulse Ox 97.2 F L 84 16 97/51 90 L 04/24/16 19:29 04/24/16 19:29 04/24/16 19:29 04/24/16 19:29 04/24/16 19:29 GENERAL APPEARANCE: 60-year-old female looking older than stated age patient is alert, oriented to self and place only, in no acute distress. Resting in bed VITAL SIGNS: Reviewed HEENT: Head is normocephalic and atraumatic. Pupils are equal and reactive. The nares are patent. Oropharynx is clear without lesions. NECK: Supple without lymphadenopathy. Traches midline. HEART: S1, S2. Regular rate and rhythm. No murmur noted LUNGS: No crackles or wheezes are heard. Adequate air movement bilaterally on room air 97% ABDOMEN: Soft, obese nontender, nondistended with good bowel sounds. No peritoneal signs. No palpable organomegaly or masses. Incontinent of urine EXTREMITIES: Normal skin color and turgor. No cyanosis, rash, ulceration, clubbing or edema. Radial pedal pulses are 2/4 bilaterally. Venodyne's on to the bilateral lower extremity not able to palpate any lymph node enlargement axillary or subclavicular Results - Labs 05/03/16 07:38 05/03/16 07:38 Abnormal Lab Results - Last 24 Hours (Table) 05/01/16 05/01/16 05/02/16 Range/Units 18:03 23:42 06:07 Carbon Dioxide (22-30) mmol/L BUN (7-17) mg/dL Creatinine (0.52-1.04) mg/dL Glucose (74-99) mg/dL POC Glucose (mg/dL) 210 H 216 H 178 H (75-99) mg/dL Calcium (8.4-10.2) mg/dL 05/02/16 05/02/16 Range/Units 07:58 12:04 Carbon Dioxide 36 H (22-30) mmol/L BUN 22 H (7-17) mg/dL Creatinine 0.33 L (0.52-1.04) mg/dL Glucose 135 H (74-99) mg/dL POC Glucose (mg/dL) 153 H (75-99) mg/dL Calcium 8.3 L (8.4-10.2) mg/dL Diabetes panel 05/02/16 Range/Units 07:58 Sodium 143 (137-145) mmol/L Potassium 4.2 (3.5-5.1) mmol/L Chloride 102 (98-107) mmol/L Carbon Dioxide 36 H (22-30) mmol/L BUN 22 H (7-17) mg/dL Creatinine 0.33 L (0.52-1.04) mg/dL Glucose 135 H (74-99) mg/dL Calcium 8.3 L (8.4-10.2) mg/dL Calcium panel 05/02/16 Range/Units 07:58 Calcium 8.3 L (8.4-10.2) mg/dL Phosphorus 3.3 (2.5-4.5) mg/dL Pituitary panel 05/02/16 Range/Units 07:58 Sodium 143 (137-145) mmol/L Potassium 4.2 (3.5-5.1) mmol/L Chloride 102 (98-107) mmol/L Carbon Dioxide 36 H (22-30) mmol/L BUN 22 H (7-17) mg/dL Creatinine 0.33 L (0.52-1.04) mg/dL Glucose 135 H (74-99) mg/dL Calcium 8.3 L (8.4-10.2) mg/dL Adrenal panel 05/02/16 Range/Units 07:58 Sodium 143 (137-145) mmol/L Potassium 4.2 (3.5-5.1) mmol/L Chloride 102 (98-107) mmol/L Carbon Dioxide 36 H (22-30) mmol/L BUN 22 H (7-17) mg/dL Creatinine 0.33 L (0.52-1.04) mg/dL Glucose 135 H (74-99) mg/dL Calcium 8.3 L (8.4-10.2) mg/dL Assessment and Plan Plan: Impression supraclavicular adenopathy noted on a CAT scan abdomen pelvis CAT scan abdomen and pelvis multiple enlarged bilateral axillary lymph nodes CAT scan abdomen pelvis splenomegaly and significant lymphadenopathy Morbid obesity BMI 41 Schizoaffective disorder Physical debility limited mobility Status post EGD and April 28 as part of a workup for severe symptomatic anemia showing a small gastric polyp no evidence of esophagitis, peptic ulcer disease or angiectasia Present on admission symptomatic severe anemia necessitating transfusion of packed red blood cells Severe thrombocytopenia improving Chronic urinary incontinence Present on admission acute hypoxic respiratory failure status post ventilator- dependent self extubated on April 28 Acute urinary tract infection from enterococcus CT scans of the CAP confirmed extensive adenopathy above and below the diaphragm. Plan Continue with your current plan of care DVT and GI prophylaxis Further surgical recommendations pending tentatively scheduled for the for biopsy open of the right axillary and possible cervical nodes Further recommendations pending Thank you for this kind referral and allowing us to participate in the surgical management of your patient The above dictated assessment and findings were discussed with Dr. Camille Ramirez. Impression and the plan of care have been dictated as directed. Lesvia Silver nurse practitioner acting as a scribe for Dr. Grubbs
--- NOTE | 2016-05-02 16:20 | P.CN ---
Psychiatric Consult - . Consult date: 05/02/16 Consult:: SUBJECTIVE: I reviewed the medical record and interviewed Mr. Agarwal. She is a 60-year-old female who has a history of a schizophrenia. She was admitted to ICU on 04/24/2016 with acute changes in mental status. I attempted to evaluate her on 04/28/2016 but she was cognitively impaired to participate in a psychiatric assessment. She is laying comfortably in her bed. She stated that she is "feeling much better". She is unable to explain the reason for the hospitalization other than she was very ill. She expressed concerned that she may not be able to return to her former home and may not be able to care for herself. She denied feeling depressed or having thoughts of or suicide. She denied auditory or visual hallucinations. She denied paranoia and did not express paranoid thinking. She denied ideas of reference, thought insertion, thought broadcasting or thought control. OBJECTIVE: She presented as an obese 60-year-old female who was pleasant on approach. She maintained eye contact and attended to the interview. She had a slight tremor in her right hand and decreased strength in her left. She had bilateral leg edema. She showed no agitation or abnormal involuntary movements. Her speech was spontaneous with decreased rhythm and volume. Her affect was blunted but stable and appropriate. She denied suicidal ideation or wishes. She denied depressive cognitions such as hopelessness, helplessness or worthlessness. She did not express ideas reference or paranoid ideation. Her thinking was very concrete but her associations were coherent. She denied hallucinations did not appear to be responding to internal stimuli. [facility] Concentration [facility]. Her total weighted error score was 18; total weighted error score greater than 10 is consistent with a dementia. She knew the month and the year. She is able to repeat the memory phrase "Julio Brown, [address] [place] [address]." She is unable to estimate the time correctly within 1 hour actual time. She was able to count backwards from 20. She was unable to name the months of the year in reverse order (beginning with February). She was unable to repeat the elements of memory phrase after a bout distraction exercises. ASSESSMENT: She has a history of a chronic schizophrenia and is recovering from an acute encephalopathy. She has evidence of cognitive impairment. Her thinking is concrete but she is denying symptoms of acute psychosis. PLAN: Restart Prolixin 5 mg by mouth daily to prevent a psychotic decompensation. She may not be able to return to her [facility] home due to the severity of her physical limitations. The unit public health social worker may assist with determining the appropriate discharge level of care. 05/02/16 16:11
[2016-05-02 16:59] LABS: Glucose,Whole Blood 115 mg/dL (75-99)
[2016-05-02] MEDS: DESMOPRESSIN 0.2 MG TAB PO SCH (21:19)
[2016-05-02] MEDS: OLANZapine 10 MG TAB PO SCH (21:20)
[2016-05-02 21:34] LABS: Glucose,Whole Blood 194 mg/dL (75-99)
--- NOTE | 2016-05-02 23:24 | P.PN ---
Subjective The pt continues to improve. She was in no respiratory distress, and more coherent and responsive. NO obvious bleeding noted Objective - Vital Signs Vital signs: Vital Signs Temp 96.0 F L 05/02/16 15:00 Pulse 74 05/02/16 19:31 Resp 18 05/02/16 16:36 BP 129/60 05/02/16 15:00 Pulse Ox 96 05/02/16 15:00 Intake & Output 05/02/16 05/02/16 05/03/16 06:59 18:59 06:59 Intake Total 1100 Balance 1100 Weight 115.5 kg 115.5 kg Intake: Intake, IV Titration 600 Amount Sodium Chloride 0.9% 1, 600 000 ml @ 75 mls/hr IV . [id number] ANDREEA Rx#:[id number] Oral 500 Other: Voiding Method Incontinent Incontinent # Voids 2 3 ABP, PAP, CO, CI - Last Documented Arterial Blood Pressure 113/44 - Constitutional General appearance: Present: no acute distress - EENT Eyes: Present: EOMI, PERRLA ENT: Present: hearing grossly normal, normal oropharynx - Respiratory Respiratory: bilateral: CTA - Cardiovascular Rhythm: regular Heart sounds: normal: S1, S2 - Gastrointestinal General gastrointestinal: Present: normal bowel sounds, soft - Integumentary Integumentary: Present: normal - Neurologic Neurologic: Present: CNII-XII intact - Musculoskeletal Musculoskeletal: Present: generalized weakness, strength equal bilaterally - Labs CBC & Chem 7: 04/30/16 07:22 05/02/16 07:58 Labs: Abnormal Lab Results - Last 24 Hours (Table) 05/01/16 05/02/16 05/02/16 Range/Units 23:42 06:07 07:58 Carbon Dioxide 36 H (22-30) mmol/L BUN 22 H (7-17) mg/dL Creatinine 0.33 L (0.52-1.04) mg/dL Glucose 135 H (74-99) mg/dL POC Glucose (mg/dL) 216 H 178 H (75-99) mg/dL Calcium 8.3 L (8.4-10.2) mg/dL 05/02/16 05/02/16 05/02/16 Range/Units 12:04 16:52 21:03 Carbon Dioxide (22-30) mmol/L BUN (7-17) mg/dL Creatinine (0.52-1.04) mg/dL Glucose (74-99) mg/dL POC Glucose (mg/dL) 153 H 115 H 194 H (75-99) mg/dL Calcium (8.4-10.2) mg/dL Assessment and Plan (1) Bicytopenia Narrative/Plan: Hgb and plt are overall stabilising. No CBC was done today. This will be ordered for tomorrow. The clinical impression is that of a marrow with depakote effect, with an superimposed acute insult, such as infection ( given positive cultures) or bleed. THe pt is on antibiotics. Her biopsy from the EGD was negative. Case d/w the GI service. Colonoscopy is being considered, but it was decided to hold off currently till after node biopsy completed Status: Acute (2) Adenopathy Narrative/Plan: CT scans of the CAP confirmed extensive adenopathy above and below the diaphragm. The case was d/w IM. A surgical consult was placed for an excisional biopsy. The rig[facility] SC would be a good target. Will await surgery's opinion. As lymphoma is in the differential , recommend sending specimen fresh for flow cytometry. The plan was d/w the pt Status: Acute
--- NOTE | 2016-05-03 05:17 | PN ---
DATE OF SERVICE: 05/02/2016 PRESENTING COMPLAINT: Acute respiratory failure. INTERVAL HISTORY: This is a patient who presented with acute respiratory failure, was intubated. Continues to improve. Swallowing has much improved, tolerating a diet. Patient is awaiting a lymph node biopsy. Also being treated for UTI and pneumonia. Psychiatry consultation is noted/appreciated. Review of systems done for constitutional, cardiovascular, GI, pulmonary; relevant findings as above. Current medications are reviewed. On examination, temperature 98.6, pulse 86, respirations 18, blood pressure 129/60, pulse ox 96% on 3 L. GENERAL APPEARANCE: Lying in bed, awake, comfortable. EYES: Pupils equal. Conjunctivae normal. NECK: JVD not raised. Mass not palpable. RESPIRATORY: Effort normal. LUNGS: Diminished breath sounds. CARDIOVASCULAR: First and second sounds normal. No edema. ABDOMEN: Soft, nontender. Liver and spleen not palpable. PSYCHIATRY: Awake. Answering questions. INVESTIGATIONS: Potassium 4.2. BUN 22, creatinine 0.33. Accu-Cheks are noted. ASSESSMENT: 1. Possible pneumonia from methicillin-susceptible Staphylococcus aureus, present on admission. 2. Acute urinary tract infection from Enterococcus faecalis, present at admission. 3. Acute hypoxic respiratory failure, status post ventilator. 4. Hypothyroidism, chronic. 5. Morbid obesity, body mass index of 43.3. 6. Chronic urinary incontinence. 7. Diabetes insipidus, chronic. 8. Acute metabolic encephalopathy on presentation, probably drug-induced and from infection, improved. 9. Acute severe anemia, could be from underlying infection or marrow suppression from ( ) and in the presences of multiple lymph nodes on CAT scan finding lymphoma is definitive in the differential. 10. Severe thrombocytopenia improved. 11. Schizophrenia, improved. PLAN: Continue current medication and treatment plan. Did talk with Dr. Adams last night. Lymph node biopsy is being done. Solu-Medrol will be tapered off.
[2016-05-03] MEDS: LEVOTHYROXINE 88 MCG TAB PO SCH (06:22)
[2016-05-03 07:10] LABS: Glucose,Whole Blood 119 mg/dL (75-99)
[2016-05-03] MEDS: INSULIN LISPRO (humaLOG) 300 UNIT/3 ML VIAL SQ SCH ×4 (07:42→21:31)
[2016-05-03] MEDS: OXYBUTYNIN CHLORIDE 5 MG TAB PO SCH ×2 (07:53→21:30)
[2016-05-03] MEDS: AMOXIC-POT CLAV 875-125MG 1 EACH TAB PO SCH ×2 (07:53→21:29)
[2016-05-03] MEDS: PANTOPRAZOLE SODIUM 40 MG GRANULE PKT PO SCH ×2 (07:53→17:31)
[2016-05-03] MEDS: DIVALPROEX ER 500 MG TAB.ER.24H PO SCH ×2 (07:53→21:30)
[2016-05-03] MEDS: methylPREDNISolone SOD SUCCI 40 MG/ML 1 ML VIAL IV SCH ×2 (07:53→23:45)
[2016-05-03] MEDS: IPRATROPIUM-ALBUTEROL 3 ML NEB INHALATION SCH ×4 (08:32→19:48)
[2016-05-03 08:38] LABS: Anisocytosis Moderate; CH 35.3; CHCM 32.6; HCT 27.4 % (34.0-46.0); HDW 4.17; HGB 8.7 gm/dL (11.4-16.0); Hypochromasia Moderate; MCH 34.9 pg (25.0-35.0); MCHC 31.7 g/dL (31.0-37.0); MCV 110.1 fL (80.0-100.0); Macrocytosis Marked; Mean Platelet Volume 7.9; Poikilocytosis Moderate; RBC 2.49 m/uL (3.80-5.40); RDW 22.6 % (11.5-15.5); WBC (Perox) 5.77
[2016-05-03 08:54] LABS: Anion Gap 3 mmol/L; Blood Urea Nitrogen 21 mg/dL (7-17); Calcium 7.9 mg/dL (8.4-10.2); Carbon Dioxide 37 mmol/L (22-30); Chloride 99 mmol/L (98-107); Glucose 88 mg/dL (74-99); Magnesium 1.7 mg/dL (1.6-2.3); Non-African American GFR(MDRD) >60 (>60 ml/min/1.73 sqM); Phosphorous 3.3 mg/dL (2.5-4.5); Sodium 139 mmol/L (137-145)
--- NOTE | 2016-05-03 09:58 | P.PN ---
Subjective 60-year-old female being seen with a surgeon at the bedside this morning. This been no new events. Patient is being seen by surgical service at the request of the attending after having a CT scans of the CAP confirmed extensive adenopathy above and below the diaphragm. . The plan is to tentatively schedule the patient tomorrow for an open biopsy right axillary and possible biopsy cervical node Objective - Vital Signs Vital signs: Vital Signs Temp 97.9 F 05/03/16 07:00 Pulse 72 05/03/16 08:48 Resp 20 05/03/16 07:00 BP 122/68 05/03/16 07:00 Pulse Ox 100 05/03/16 07:00 Intake & Output 05/02/16 05/03/16 05/03/16 18:59 06:59 18:59 Intake Total 1100 200 Balance 1100 200 Weight 115.5 kg 117 kg Intake: Intake, IV Titration 600 Amount Sodium Chloride 0.9% 1, 600 000 ml @ 75 mls/hr IV . [id number] ANDREEA Rx#:[id number] Oral 500 200 Other: Voiding Method Incontinent Incontinent Incontinent # Voids 3 1 ABP, PAP, CO, CI - Last Documented Arterial Blood Pressure 113/44 - Exam GENERAL APPEARANCE: 60-year-old female patient is alert, oriented times to self and place resting in bed, in no acute distress. VITAL SIGNS: Reviewed HEENT: Head is normocephalic and atraumatic. Pupils are equal and reactive. The nares are patent. Oropharynx is clear without lesions. NECK: Supple without lymphadenopathy. Traches midline. HEART: S1, S2. Regular rate and rhythm. No murmur noted LUNGS: No crackles or wheezes are heard. No shortness of breath ABDOMEN: Soft, obese nontender, nondistended with good bowel sounds. No peritoneal signs. No palpable organomegaly or masses. EXTREMITIES: Normal skin color and turgor. No cyanosis, rash, ulceration, clubbing or edema. Radial pedal pulses are 2/4 bilaterally. - Labs CBC & Chem 7: 05/03/16 07:38 05/03/16 07:38 Labs: Abnormal Lab Results - Last 24 Hours (Table) 05/02/16 05/02/16 05/02/16 Range/Units 12:04 16:52 21:03 RBC (3.80-5.40) m/uL Hgb (11.4-16.0) gm/dL Hct (34.0-46.0) % MCV (80.0-100.0) fL RDW (11.5-15.5) % Carbon Dioxide (22-30) mmol/L BUN (7-17) mg/dL Creatinine (0.52-1.04) mg/dL POC Glucose (mg/dL) 153 H 115 H 194 H (75-99) mg/dL Calcium (8.4-10.2) mg/dL 05/03/16 05/03/16 05/03/16 Range/Units 07:04 07:38 07:38 RBC 2.49 L (3.80-5.40) m/uL Hgb 8.7 L (11.4-16.0) gm/dL Hct 27.4 L (34.0-46.0) % MCV 110.1 H (80.0-100.0) fL RDW 22.6 H (11.5-15.5) % Carbon Dioxide 37 H (22-30) mmol/L BUN 21 H (7-17) mg/dL Creatinine 0.34 L (0.52-1.04) mg/dL POC Glucose (mg/dL) 119 H (75-99) mg/dL Calcium 7.9 L (8.4-10.2) mg/dL Assessment and Plan Plan: Impression supraclavicular adenopathy noted on a CAT scan abdomen pelvis CAT scan abdomen and pelvis multiple enlarged bilateral axillary lymph nodes CAT scan abdomen pelvis splenomegaly and significant lymphadenopathy Morbid obesity BMI 41 Schizoaffective disorder Physical debility limited mobility Status post EGD and April 28 as part of a workup for severe symptomatic anemia showing a small gastric polyp no evidence of esophagitis, peptic ulcer disease or angiectasia Present on admission symptomatic severe anemia necessitating transfusion of packed red blood cells Severe thrombocytopenia improving Chronic urinary incontinence Present on admission acute hypoxic respiratory failure status post ventilator- dependent self extubated on April 28 Acute urinary tract infection from enterococcus CT scans of the CAP confirmed extensive adenopathy above and below the diaphragm. Plan Continue with your current plan of care DVT and GI prophylaxis Further surgical recommendations pending tentatively scheduled for for biopsy open of the right axillary and possible cervical nodes Further recommendations pending Thank you for this kind referral and allowing us to participate in the surgical management of your patient The above dictated assessment and findings were discussed with Dr. Camille Ramirez. Impression and the plan of care have been dictated as directed. Lesvia Silver nurse practitioner acting as a scribe for Dr. Grubbs
[2016-05-03 11:02] LABS: Add Differential Manual Differential
[2016-05-03 11:11] LABS: Band Neutrophils % 1.5 %; Blast Cells 0.5; Nucleated Red Blood Cells 1 /100 WBC (0-0); Total Cells Counted 200
[2016-05-03 11:12] LABS: WBC 6.1 k/uL (3.8-10.6)
[2016-05-03 11:13] LABS: Polychromasia Present
[2016-05-03 11:14] LABS: Basophilic Stippling Present
[2016-05-03 12:24] LABS: Glucose,Whole Blood 153 mg/dL (75-99)
[2016-05-03 17:36] LABS: Glucose,Whole Blood 157 mg/dL (75-99)
[2016-05-03 21:00] LABS: Glucose,Whole Blood 209 mg/dL (75-99)
[2016-05-03] MEDS: DESMOPRESSIN 0.2 MG TAB PO SCH (21:30)
[2016-05-03] MEDS: OLANZapine 10 MG TAB PO SCH (21:30)
[2016-05-04] MEDS: IPRATROPIUM-ALBUTEROL 3 ML NEB INHALATION SCH ×4 (07:11→20:57)
[2016-05-04 07:40] LABS: Glucose,Whole Blood 70 mg/dL (75-99)
[2016-05-04] MEDS ORDERED: DEXTROSE 50%-WATER 50 ML SYRINGE IVP STA (07:51)
[2016-05-04] MEDS: INSULIN LISPRO (humaLOG) 300 UNIT/3 ML VIAL SQ SCH ×4 (07:55→21:14)
[2016-05-04 08:11] LABS: Glucose,Whole Blood 93 mg/dL (75-99)
--- NOTE | 2016-05-04 08:46 | PN ---
DATE OF SERVICE: 05/03/2016 PRESENTING COMPLAINT: Acute respiratory failure. INTERVAL HISTORY: This is a patient who presented with acute respiratory failure, was intubated, continues to improve. Anemia work-up revealed multiple lymph nodes for which biopsy is being done. Patient has underlying UTI and pneumonia. Review of systems done for constitutional, cardiovascular, GI, pulmonary: relevant findings as above. Current medications are reviewed. On examination, temperature 97.1, pulse 79, respirations 20, blood pressure 108/57. Pulse ox 98% on 2 L. GENERAL APPEARANCE: Lying in bed, awake, comfortable, more communicative. EYES: Pupils equal, conjunctivae normal. NECK: JVD not raised. Respiratory effort normal. LUNGS: Diminished breath sounds. CARDIOVASCULAR: First and second seconds are normal. No edema. ABDOMEN: Soft, nontender. Liver and spleen not palpable. PSYCHIATRY: Awake, answering questions appropriately. INVESTIGATIONS: White count 6.1, hemoglobin 8.7, potassium 4. BUN 20, creatinine 0.34. ASSESSMENT: 1. Pneumonia from methicillin susceptible Staphylococcus aureus, present at admission. 2. Acute urinary tract infection from Enterococcus faecalis, present at admission. 3. Acute hypoxic respiratory failure. Patient requiring ventilator, now resolved. 4. Hypothyroidism, chronic. 5. Morbid obesity, body mass index of 43.3. 6. Chronic urinary incontinence. 7. Diabetes insipidus, chronic. 8. Acute metabolic encephalopathy on presentation, probably drug induced and from infection, improved. 9. Acute severe anemia, differential is now a lymphoma, hence, awaiting lymph node biopsy with a flow cytometry. 10. Severe thrombocytopenia likely from underlying infection, improved. 11. Schizophrenia, improved. PLAN: Continue current medication and treatment plan. Patient will be switched over to oral prednisone in the morning and then tapered off.
[2016-05-04 10:11] LABS: Blood Urea Nitrogen 18 mg/dL (7-17); Calcium 7.8 mg/dL (8.4-10.2); Chloride 95 mmol/L (98-107); Glucose 77 mg/dL (74-99); Magnesium 1.6 mg/dL (1.6-2.3); Non-African American GFR(MDRD) >60 (>60 ml/min/1.73 sqM); Phosphorous 2.9 mg/dL (2.5-4.5); Sodium 138 mmol/L (137-145)
[2016-05-04 10:25] LABS: Anion Gap 6 mmol/L; Carbon Dioxide 37 mmol/L (22-30)
[2016-05-04 12:19] LABS: Glucose,Whole Blood 90 mg/dL (75-99)
[2016-05-04] MEDS ORDERED: IV FLUID CONTINUATION 900 ML IV ONE (12:48)
[2016-05-04] MEDS: LEVOTHYROXINE 88 MCG TAB PO SCH (14:18)
[2016-05-04] MEDS: DIVALPROEX ER 500 MG TAB.ER.24H PO SCH ×2 (14:18→21:37)
[2016-05-04] MEDS: AMOXIC-POT CLAV 875-125MG 1 EACH TAB PO SCH ×2 (14:18→21:36)
[2016-05-04] MEDS: OXYBUTYNIN CHLORIDE 5 MG TAB PO SCH ×2 (14:18→21:38)
[2016-05-04] MEDS: PANTOPRAZOLE SODIUM 40 MG GRANULE PKT PO SCH ×2 (14:18→17:25)
[2016-05-04] MEDS: predniSONE 20 MG TAB PO SCH (14:32)
[2016-05-04 17:29] LABS: Glucose,Whole Blood 141 mg/dL (75-99)
[2016-05-04 20:46] LABS: Glucose,Whole Blood 212 mg/dL (75-99)
[2016-05-04] MEDS: DESMOPRESSIN 0.2 MG TAB PO SCH (21:36)
[2016-05-04] MEDS: OLANZapine 10 MG TAB PO SCH (21:37)
--- NOTE | 2016-05-04 22:09 | PN ---
DATE OF SERVICE: 05/04/2016 PRESENTING COMPLAINT: Acute respiratory failure. INTERVAL HISTORY: This is a patient who presented with acute respiratory failure and was intubated. Anemia workup revealed multiple lymph nodes, for which biopsy is pending. I saw this patient early this morning. Patient was also treated for underlying UTI and pneumonia; that will explain her low platelets initially. Patient is comfortable. Review of systems done for constitutional, cardiovascular, GI, pulmonary; relevant findings as above. Current medications are reviewed. On examination, temperature 97.1, pulse 78, respiration 16, blood pressure 94/64, pulse ox 98% on room air. GENERAL APPEARANCE: Lying in bed. Comfortable. EYES: Pupils equal. Conjunctivae normal. NECK: JVD not raised. Mass not palpable. RESPIRATORY: Effort normal. LUNGS: Decreased breath sounds. CARDIOVASCULAR: First and second sounds normal. No edema. ABDOMEN: Soft, nontender. Liver and spleen not palpable. PSYCHIATRY: Awake. Answering questions. INVESTIGATIONS: Potassium 4. BUN 18, creatinine 0.31. Accu-Cheks are noted. ASSESSMENT: 1. Pneumonia from methicillin-susceptible Staphylococcus aureus, present on admission. 2. Acute urinary tract infection from Enterococcus faecalis, present on admission. 3. Acute hypoxic respiratory failure; patient is not requiring ventilator; now resolved. 4. Hypothyroidism, chronic. 5. Morbid obesity with body mass index of 43.3. 6. Chronic urinary continence. 7. Diabetes insipidus, chronic. 8. Acute metabolic encephalopathy on presentation, probably drug-induced and from infection, improved. 9. Acute severe anemia. Differential is now lymphoma in the presence of positive lymph nodes. 10. Severe thrombocytopenia, likely from underlying infection, now improved. 11. Schizophrenia, improved. PLAN: Await lymph node biopsy/excision. Continue current medication and treatment plan.
[2016-05-05 01:07] LABS: Glucose,Whole Blood 202 mg/dL (75-99)
[2016-05-05] MEDS: LEVOTHYROXINE 88 MCG TAB PO SCH (05:44)
[2016-05-05 07:12] LABS: Glucose,Whole Blood 126 mg/dL (75-99)
[2016-05-05] MEDS: INSULIN LISPRO (humaLOG) 300 UNIT/3 ML VIAL SQ SCH ×3 (08:01→16:48)
[2016-05-05] MEDS: PANTOPRAZOLE SODIUM 40 MG GRANULE PKT PO SCH ×2 (08:10→16:48)
[2016-05-05] MEDS: DIVALPROEX ER 500 MG TAB.ER.24H PO SCH (08:15)
[2016-05-05] MEDS: AMOXIC-POT CLAV 875-125MG 1 EACH TAB PO SCH (08:15)
[2016-05-05] MEDS: OXYBUTYNIN CHLORIDE 5 MG TAB PO SCH (08:16)
[2016-05-05] MEDS: predniSONE 20 MG TAB PO SCH (08:16)
[2016-05-05] MEDS: IPRATROPIUM-ALBUTEROL 3 ML NEB INHALATION SCH ×3 (09:19→15:09)
[2016-05-05 10:22] LABS: Anion Gap 6 mmol/L; Blood Urea Nitrogen 16 mg/dL (7-17); Carbon Dioxide 36 mmol/L (22-30); Chloride 96 mmol/L (98-107); Glucose 95 mg/dL (74-99); Magnesium 1.6 mg/dL (1.6-2.3); Non-African American GFR(MDRD) >60 (>60 ml/min/1.73 sqM); Phosphorous 3.1 mg/dL (2.5-4.5); Potassium 5.4 mmol/L (3.5-5.1); Sodium 138 mmol/L (137-145)
[2016-05-05] MEDS ORDERED: IV FLUID CONTINUATION 1,000 ML IV ONE (11:10)
[2016-05-05] MEDS ORDERED: fentaNYL (PF) 50 MCG/ML 2 ML AMP ONE (12:29)
[2016-05-05] MEDS ORDERED: SODIUM CHLORIDE 0.9% 100 ML with ceFAZolin 2,000 MG IV ONE ×2 (12:29)
[2016-05-05] MEDS ORDERED: SUCCINYLCHOLINE CHLORIDE 100 MG/5 ML SYR IV ONE (12:29)
[2016-05-05] MEDS ORDERED: LIDOCAINE 1% INJ 10MG/ML (20 ML MDV) ONE (12:29)
[2016-05-05] MEDS ORDERED: HEPARIN SODIUM,PORCINE 5,000 UNIT/ML 1 ML VIAL ONE (12:29)
[2016-05-05] MEDS ORDERED: MIDAZOLAM 2 MG/2 ML VIAL ONE (12:29)
[2016-05-05] MEDS ORDERED: PROPOFOL 10 MG/ML 20 ML VIAL IV ONE (12:29)
[2016-05-05] MEDS ORDERED: HEPARIN SODIUM,PORCINE 5,000 UNIT/ML 1 ML VIAL SQ ONE (13:22)
--- NOTE | 2016-05-05 13:29 | P.OP ---
Date of Procedure: 05/05/16 Preoperative Diagnosis: Right axillary adenopathy, hepatomegaly splenomegaly, left axillary adenopathy Postoperative Diagnosis: Same Procedure(s) Performed: Right axillary node biopsy Anesthesia: MUKESH Surgeon: Yolette Martinez Estimated Blood Loss (ml): 5 IV fluids (ml): 300 Pathology: other (Right axillary lymph node) Condition: stable Disposition: PACU Indications for Procedure: Patient is a 59-year-old white female who was noted to have anemia and hepatomegaly splenomegaly and adenopathy. Patient is having an axillary biopsy to rule out a lymphoma. Operative Findings: Right axillary adenopathy Description of Procedure: Patient is a 60-year-old white female who presented with anemia and was noted to have hepatomegaly or splenomegaly and bilateral axillary adenopathy. She is scheduled to undergo an axillary lymph node biopsy to rule out lymphoma. Patient was taken to the operating room and following induction of general anesthesia the right axilla was prepped and draped in a sterile fashion. An incision was made and carried down through the subcutaneous tissue to palpable enlarged complex of lymph nodes. At least 2 nodes were noted to be present adjacent to each other in each was approximately 3 cm in size by 1-1-1/2 cm in size. These were removed using the Harmonic scalpel. After we assured that hemostasis was attained several deep 3-0 Vicryl sutures were placed. This is followed by 4-0 Monocryl on the skin. Steri- Strips were applied. The patient tolerated the procedure in stable condition. All instrument and sponge counts were correct at the end of the case.
[2016-05-05] MEDS ORDERED: HYDROcodone/APAP 5-325MG 1 EACH TAB PO PRN (13:31)
[2016-05-05] MEDS ORDERED: SODIUM CHLORIDE 0.9% 1,000 ML IV ONE (13:35)
--- NOTE | 2016-05-05 13:35 | P.PN ---
Progress Note - Text This is an addendum to the operative report of to 05/05/16. Please note after the lymph nodes were removed cultures were obtained. Additionally the nodes were sent fresh for flow cytometry to pathology after discussion with the pathologist.
[2016-05-05 14:10] LABS: Glucose,Whole Blood 155 mg/dL (75-99)
[2016-05-05] MEDS ORDERED: SODIUM POLYSTYRENE SULFONATE 15 GM/60 ML BOTTLE PO STA (14:13)
--- NOTE | 2016-05-05 14:55 | DS ---
DATE OF ADMISSION: 04/24/2016 DATE OF DISCHARGE: FINAL DIAGNOSIS(ES): 1. Pneumonia from methicillin susceptible staph aureus present on admission. 2. Acute urinary tract infection from Enterococcus faecalis, present on admission. 3. Acute hypoxic respiratory failure was on the ventilator. 4. Hypothyroidism, chronic. 5. Morbid obesity, body mass index of 43.3. 6. Chronic urinary incontinence. 7. Diabetes insipidus, chronic. 8. Acute metabolic encephalopathy on presentation, probably drug-induced and from infection, improved. 9. Acute severe anemia. Differential is probably lymphoma, ( ) positive for lymphadenopathy. 10. Severe thrombocytopenia likely from underlying sepsis recovered. 11. Schizophrenia, improved. HOSPITAL COURSE: This patient presented with altered mental status had to be intubated, doing better at the time of discharge, getting back to her normal self. Patient did have Enterococcus faecalis urine and Staph aureus pneumonia. Because the patient's ( ) have dropped down and had anemia, Dr. Adams saw the patient and ordered a CAT scan that did show multiple enlarged lymph nodes palpable along with splenomegaly. Lymph node excision biopsy was done today from the axillae. Further follow-up with Dr. Adams. CONSULTATION: Dr. Nathaly Martinez from general surgery. Dr. Adams from oncology, Dr. Middleton from psychiatry. Dr. Kline from neurology. Patient's EEG did not show any seizure activity. DISCHARGE MEDICATIONS: 1. Magnesium oxide 1 tablet daily. 2. DDAVP 0.4 mg p.o. q.h.s. 3. Synthroid 88 mcg daily. 4. Zantac 150 mg p.o. b.i.d. 5. Tylenol 325 p.o. daily. 6. Depakote ER 1000 mg at night 500 mg in morning. 7. Olanzapine 20 mg q.h.s. 8. Oxybutynin 5 mg b.i.d. 9. ( ) 50 mg b.i.d. 10. Milk of magnesia 2500 mg q.72h. p.r.n. 11. Senokot-S 1 tablet p.o. q.h.s. 12. Augmentin 875, 1 tablet q.12, 6 tablets. 13. [place] 5 1 tablets q.6 p.r.n. 14. Ativan 1 mg q.6 p.r.n. 15. Prednisone taper. Follow up with Dr. Schroeder from visiting physician upon discharge from [facility]; follow up with Dr. Joe at the [facility]. Follow up with Dr. Adams in 10 days and discharge planning more than 35 minutes.
[2016-05-05] MEDS ORDERED: HEPARIN SODIUM,PORCINE 5,000 UNIT/ML 1 ML VIAL SQ SCH (16:00)
[2016-05-05 16:17] VITALS: BP 142/79; PULSE 80; RESP 18; TEMP 96
[2016-05-05 17:13] LABS: Glucose,Whole Blood 145 mg/dL (75-99)
[2016-05-08 16:08] LABS: Mis test requested (Non-blood) B Cell Flow Cyto
--- NOTE | 2016-05-30 15:08 | DS ---
ADDENDUM: DATE OF ADMISSION: 04/24/2016 DATE OF DISCHARGE: 05/05/2016 On examination, lungs decreased breath sounds. CARDIOVASCULAR: First and second heart sounds are normal. Patient is answering questions appropriately.
== END 2016-05-05 18:27 | DRG 987 ==
LOC: EC 19:25 → 6ICU 22:03 → 4MS4W 04-28 12:03
PROVIDERS: ADMIT Hospitalist; ATTEND Hospitalist
PROC: 5A1945Z Respiratory Ventilation, 24-96 Consecutive Hours (ICD-10-PCS; 2016-04-24)
PROC: 0BH17EZ Insertion of Endotracheal Airway into Trachea, Via Natural or Artificial Opening (ICD-10-PCS; 2016-04-24)
PROC: 0D9670Z Drainage of Stomach with Drainage Device, Via Natural or Artificial Opening (ICD-10-PCS; 2016-04-24)
PROC: 03HY32Z Insertion of Monitoring Device into Upper Artery, Percutaneous Approach (ICD-10-PCS; 2016-04-25)
PROC: 4A133B1 Monitoring of Arterial Pressure, Peripheral, Percutaneous Approach (ICD-10-PCS; 2016-04-25)
PROC: 4A133J1 Monitoring of Arterial Pulse, Peripheral, Percutaneous Approach (ICD-10-PCS; 2016-04-25)
PROC: 05HN33Z Insertion of Infusion Device into Left Internal Jugular Vein, Percutaneous Approach (ICD-10-PCS; 2016-04-25)
PROC: 0DH67UZ Insertion of Feeding Device into Stomach, Via Natural or Artificial Opening (ICD-10-PCS; 2016-04-25)
PROC: 3E0G76Z Introduction of Nutritional Substance into Upper GI, Via Natural or Artificial Opening (ICD-10-PCS; 2016-04-25)
PROC: 0DB98ZX Excision of Duodenum, Via Natural or Artificial Opening Endoscopic, Diagnostic (ICD-10-PCS; 2016-04-28)
PROC: 0DB68ZX Excision of Stomach, Via Natural or Artificial Opening Endoscopic, Diagnostic (ICD-10-PCS; 2016-04-28)
PROC: 07B50ZX Excision of Right Axillary Lymphatic, Open Approach, Diagnostic (ICD-10-PCS; principal; 2016-05-05 13:00)
DX: J15.211 Pneumonia due to Methicillin susceptible Staphylococcus aureus (principal); J96.01 Acute respiratory failure with hypoxia; G93.41 Metabolic encephalopathy; E23.2 Diabetes insipidus; R56.9 Unspecified convulsions; G21.19 Other drug induced secondary parkinsonism; F20.0 Paranoid schizophrenia; Z68.41 Body mass index [BMI] 40.0-44.9, adult; N39.0 Urinary tract infection, site not specified; E66.01 Morbid (severe) obesity due to excess calories; R13.10 Dysphagia, unspecified; D69.59 Other secondary thrombocytopenia; I50.9 Heart failure, unspecified; I11.0 Hypertensive heart disease with heart failure; B95.2 Enterococcus as the cause of diseases classified elsewhere; D50.9 Iron deficiency anemia, unspecified; E03.9 Hypothyroidism, unspecified; E78.5 Hyperlipidemia, unspecified; R32 Unspecified urinary incontinence; J45.909 Unspecified asthma, uncomplicated; D53.9 Nutritional anemia, unspecified; K31.7 Polyp of stomach and duodenum; Z90.49 Acquired absence of other specified parts of digestive tract; Z71.3 Dietary counseling and surveillance; Z79.899 Other long term (current) drug therapy
CPT/HCPCS: 31500; 36415; 36600; 43239; 51702; 70450; 71010; 71260; 74177; 74230; 80048; 80053; 80306; 81001; 82247; 82272; 82330; 82533; 82553; 82607; 82728; 82747; 82805; 83010; 83036; 83520; 83540; 83550; 83605; 83615; 83690; 83735; 83880; 83883; 83921; 84100; 84165; 84478; 84484; 85025; 85027; 85045; 85384; 85610; 85730; 86038; 86039; 86334; 86431; 86850; 86900; 86901; 86920; 87040; 87070; 87075; 87077; 87086; 87186; 87205; 88184; 88185; 88305; 88307; 88342; 93005; 94002; 94003; 94640; 94660; 94760; 95819; 96361; 96365; 96366; 96375; 99144; 99285

== ENCOUNTER 2016-05-18 21:00 | Inpatient (IN) | payer MEDICARE, OTHER ==
[2016-05-18] MEDS ORDERED: ACETAMINOPHEN IV (For NPO) 1,000 MG in SALINE 100 100ML.BAG IVPB STA (21:05)
[2016-05-18] MEDS ORDERED: IBUPROFEN IV 600 MG in SODIUM CHLORIDE 0.9% 250 ML IV STA (21:05)
--- NOTE | 2016-05-18 21:09 | ED ---
Fever HPI - General Stated Complaint: GLENN Time Seen by Provider: 05/18/16 21:00 Source: RN notes reviewed - History of Present Illness Initial Comments: This is a 60-year-old female who resides at a [facility]. Patient was sent in because she becoming more edematous and having a difficult time breathing. When EMS arrived she was lying supine they sat her up and gave her some oxygen and they states she became more alert her color improved and she was oxygenating better. According to the staff the patient is in no code but they had no paperwork at this time. There is no history of any fever history of any complaints of pain no history of any abdominal pain or history of any chest pain no history of any nausea or vomiting or diarrhea. Patient's past medical history includes diabetic hypertensive high cholesterol. I saw no mention of heart disease. - Related Data Home Medications Medication Instructions Recorded Confirmed Magnesium Oxide [Mag-Ox] 400 mg PO DAILY@0800 06/24/14 05/18/16 Acetaminophen Tab [Tylenol] 325 mg PO DAILY PRN 02/24/16 05/18/16 Divalproex ER [Depakote ER] 1,000 mg PO HS@199902/24/16 05/18/16 Divalproex ER [Depakote ER] 500 mg PO DAILY@0800 02/24/16 05/18/16 OLANZapine 20 mg PO HS@199902/24/16 05/18/16 Oxybutynin Chloride 5 mg PO BID@0800,1600 02/24/16 05/18/16 fluvoxaMINE [Luvox] 50 mg PO BID@0800,1500 02/24/16 05/18/16 Magnesium Hydroxide [Milk of 2,400 mg PO Q72H PRN 04/24/16 05/18/16 Magnesia] Sennosides-Docusate Sodium 1 tab PO HS 04/24/16 05/18/16 [Senokot-S] Desmopressin [Ddavp] 0.4 mg PO HS@199905/18/16 05/18/16 HYDROcodone/APAP 5-325MG [[place] 1 tab PO Q6HR PRN 05/18/16 05/18/16 5-325] Levothyroxine Sodium [Synthroid] 88 mcg PO DAILY@0500 05/18/16 05/18/16 Ranitidine HCl 150 mg PO BID@0800,1600 05/18/16 05/18/16 predniSONE See Taper PO DAILY 05/18/16 05/18/16 Previous Rx's Medication Instructions Recorded LORazepam [Ativan] 1 mg PO Q6H PRN #14 tab 05/05/16 Allergies Allergy/AdvReac Type Severity Reaction Status Date / Time aspirin AdvReac Nausea & Verified 05/18/16 21:08 Vomiting Review of Systems ROS Statement: Those systems with pertinent positive or pertinent negative responses have been documented in the HPI. ROS Other: All systems not noted in ROS Statement are negative. Past Medical History Past Medical History: Asthma, Diabetes Mellitus, Hyperlipidemia, Hypertension, Thyroid Disorder Additional Past Medical History / Comment(s): Parkinson's -like symptoms due to medication, diabetes insipidus. History of Any Multi-Drug Resistant Organisms: None Reported Past Surgical History: Appendectomy Additional Past Surgical History / Comment(s): Additional Medical Hx: Parkinson' s Disease; Additional Past Anesthesia/Blood Transfusion Reaction / Comment(s): Unknown Past Psychological History: Schizophrenia Additional Psychological History / Comment(s): Patient receives outpatient counselling and sees Dr. Muse. Smoking Status: Never smoker Past Alcohol Use History: None Reported Additional Past Alcohol Use History / Comment(s): Patient denies any history of smoking, medical marijuana or marijuana use or alcohol use. Patient is single and has no children. Past Drug Use History: None Reported - Past Family History Father Family Medical History: CVA/TIA Additional Family Medical History / Comment(s): Patient father in his 80s from his stroke and also her mother in her 80s from a stroke. She has one brother and 2 sisters which she has no contact with. Patient has a guardian. General Exam - General Exam Comments Initial Comments: GENERAL: Patient is well-developed and well-nourished. Patient is nontoxic and well- hydrated and is in mild distress. Patient is lethargic very slow to answer questions quickly falls asleep. ENT: Neck is soft and supple. No significant lymphadenopathy is noted. Oropharynx is clear. Moist mucous membranes. Neck has full range of motion without eliciting any pain. EYES: The sclera were anicteric and conjunctiva were pink and moist. Extraocular movements were intact and pupils were equal round and reactive to light. Eyelids were unremarkable. PULMONARY: Very poor effort but there does appear to be crackles in the bilateral bases. CARDIOVASCULAR: There is a regular rate and rhythm without any murmurs gallops or rubs. ABDOMEN: Soft and nontender with normal bowel sounds. No palpable organomegaly was noted. There is no palpable pulsatile mass. SKIN: Skin is clear with no lesions or rashes and otherwise unremarkable. NEUROLOGIC: Patient is alert and oriented 1. Cranial nerves II through XII are grossly intact. Motor and sensory are also intact. PSYCHIATRIC: Unable to assess because of altered mental status Course Vital Signs 05/18/16 05/18/16 05/18/16 21:09 21:25 21:34 Temperature Pulse Rate 100 103 H 102 H Respiratory 22 20 20 Rate Blood Pressure 89/54 107/57 103/54 O2 Sat by Pulse 100 100 99 Oximetry 05/18/16 05/18/16 05/18/16 21:36 22:15 22:33 Temperature 102.1 F H 98.2 F Pulse Rate 102 H 99 Respiratory 20 20 Rate Blood Pressure 88/53 94/49 O2 Sat by Pulse 90 L 96 Oximetry 05/18/16 22:36 Temperature Pulse Rate 98 Respiratory Rate Blood Pressure 101/56 O2 Sat by Pulse 98 Oximetry Medical Decision Making - Medical Decision Making EKG shows sinus tachycardia at 107 bpm GA interval 194 QRS is 72 QT interval 326 QTC is 435. Patient's EKG shows no ST segment elevation or depression or T- wave abdomen is noted. Patient was found to have a temperature. Patient's x-ray shows a possible pneumonia. Urine was very infected so I started the patient on Levaquin. Admitted the patient. I wrote admitting orders. - Lab Data Result diagrams: 05/18/16 21:26 05/18/16 21:26 Lab Results 05/18/16 05/18/16 05/18/16 Range/Units 21: 21:26 21:26 WBC 2.8 L (3.8-10.6) k/uL RBC 2.67 L (3.80-5.40) m/uL Hgb 9.3 L (11.4-16.0) gm/dL Hct 29.3 L (34.0-46.0) % MCV 109.7 H (80.0-100.0) fL MCH 35.0 (25.0-35.0) pg MCHC 31.9 (31.0-37.0) g/dL RDW 16.5 H (11.5-15.5) % PT (9.0-12.0) sec INR (<1.1) APTT (22.0-30.0) sec Sodium (137-145) mmol/L Potassium (3.5-5.1) mmol/L Chloride (98-107) mmol/L Carbon Dioxide (22-30) mmol/L Anion Gap mmol/L BUN (7-17) mg/dL Creatinine (0.52-1.04) mg/dL Est GFR (MDRD) Af Amer (>60 ml/min/1.73 sqM) Est GFR (MDRD) Non-Af (>60 ml/min/1.73 sqM) Glucose (74-99) mg/dL POC Glucose (mg/dL) 80 (75-99) mg/dL POC Glu [employer] ID Ella Singh Plasma Lactic Acid Caleb (0.7-2.0) mmol/L Calcium (8.4-10.2) mg/dL Magnesium (1.6-2.3) mg/dL Total Bilirubin (0.2-1.3) mg/dL AST (14-36) U/L ALT (9-52) U/L Alkaline Phosphatase (38-126) U/L Total Creatine Kinase <20 L (30-135) U/L CK-MB (CK-2) 0.3 (0.0-2.4) ng/mL CK-MB (CK-2) Rel Index 0.0 Troponin I <0.012 (0.000-0.034) ng/mL Total Protein (6.3-8.2) g/dL Albumin (3.5-5.0) g/dL Urine Color Urine Appearance (Clear) Urine pH (5.0-8.0) Ur Specific [place] (1.001-1.035) Urine Protein (Negative) Urine Glucose (UA) (Negative) Urine Ketones (Negative) Urine Blood (Negative) Urine Nitrate (Negative) Urine Bilirubin (Negative) Urine Urobilinogen (<2.0) mg/dL Ur Leukocyte Esterase (Negative) Urine RBC (0-5) /hpf Urine WBC (0-5) /hpf Urine WBC Clumps (None) /hpf Urine Bacteria (None) /hpf Urine Mucus (None) /hpf 05/18/16 05/18/16 05/18/16 Range/Units 21:26 21:26 21:26 WBC (3.8-10.6) k/uL RBC (3.80-5.40) m/uL Hgb (11.4-16.0) gm/dL Hct (34.0-46.0) % MCV (80.0-100.0) fL MCH (25.0-35.0) pg MCHC (31.0-37.0) g/dL RDW (11.5-15.5) % PT 12.7 H (9.0-12.0) sec INR 1.3 (<1.1) APTT 28.4 (22.0-30.0) sec Sodium 136 L (137-145) mmol/L Potassium 3.5 (3.5-5.1) mmol/L Chloride 90 L (98-107) mmol/L Carbon Dioxide 39 H (22-30) mmol/L Anion Gap 7 mmol/L BUN 17 (7-17) mg/dL Creatinine 0.35 L (0.52-1.04) mg/dL Est GFR (MDRD) Af Amer >60 (>60 ml/min/1.73 sqM) Est GFR (MDRD) Non-Af >60 (>60 ml/min/1.73 sqM) Glucose 77 (74-99) mg/dL POC Glucose (mg/dL) (75-99) mg/dL POC Glu [employer] ID Plasma Lactic Acid Caleb 0.7 (0.7-2.0) mmol/L Calcium 8.4 (8.4-10.2) mg/dL Magnesium 1.6 (1.6-2.3) mg/dL Total Bilirubin 0.7 (0.2-1.3) mg/dL AST 11 L (14-36) U/L ALT 16 (9-52) U/L Alkaline Phosphatase 65 (38-126) U/L Total Creatine Kinase (30-135) U/L CK-MB (CK-2) (0.0-2.4) ng/mL CK-MB (CK-2) Rel Index Troponin I (0.000-0.034) ng/mL Total Protein 6.5 (6.3-8.2) g/dL Albumin 2.5 L (3.5-5.0) g/dL Urine Color Urine Appearance (Clear) Urine pH (5.0-8.0) Ur Specific [place] (1.001-1.035) Urine Protein (Negative) Urine Glucose (UA) (Negative) Urine Ketones (Negative) Urine Blood (Negative) Urine Nitrate (Negative) Urine Bilirubin (Negative) Urine Urobilinogen (<2.0) mg/dL Ur Leukocyte Esterase (Negative) Urine RBC (0-5) /hpf Urine WBC (0-5) /hpf Urine WBC Clumps (None) /hpf Urine Bacteria (None) /hpf Urine Mucus (None) /hpf 05/18/16 Range/Units 21:34 WBC (3.8-10.6) k/uL RBC (3.80-5.40) m/uL Hgb (11.4-16.0) gm/dL Hct (34.0-46.0) % MCV (80.0-100.0) fL MCH (25.0-35.0) pg MCHC (31.0-37.0) g/dL RDW (11.5-15.5) % PT (9.0-12.0) sec INR (<1.1) APTT (22.0-30.0) sec Sodium (137-145) mmol/L Potassium (3.5-5.1) mmol/L Chloride (98-107) mmol/L Carbon Dioxide (22-30) mmol/L Anion Gap mmol/L BUN (7-17) mg/dL Creatinine (0.52-1.04) mg/dL Est GFR (MDRD) Af Amer (>60 ml/min/1.73 sqM) Est GFR (MDRD) Non-Af (>60 ml/min/1.73 sqM) Glucose (74-99) mg/dL POC Glucose (mg/dL) (75-99) mg/dL POC Glu Fun[employer]anger ID Plasma Lactic Acid Caleb (0.7-2.0) mmol/L Calcium (8.4-10.2) mg/dL Magnesium (1.6-2.3) mg/dL Total Bilirubin (0.2-1.3) mg/dL AST (14-36) U/L ALT (9-52) U/L Alkaline Phosphatase (38-126) U/L Total Creatine Kinase (30-135) U/L CK-MB (CK-2) (0.0-2.4) ng/mL CK-MB (CK-2) Rel Index Troponin I (0.000-0.034) ng/mL Total Protein (6.3-8.2) g/dL Albumin (3.5-5.0) g/dL Urine Color Yellow Urine Appearance Turbid H (Clear) Urine pH 7.0 (5.0-8.0) Ur Specific [place] 1.017 (1.001-1.035) Urine Protein 2+ H (Negative) Urine Glucose (UA) Negative (Negative) Urine Ketones 1+ H (Negative) Urine Blood Small H (Negative) Urine Nitrate Positive H (Negative) Urine Bilirubin Negative (Negative) Urine Urobilinogen 8.0 (<2.0) mg/dL Ur Leukocyte Esterase Large H (Negative) Urine RBC 43 H (0-5) /hpf Urine WBC >182 H (0-5) /hpf Urine WBC Clumps Many H (None) /hpf Urine Bacteria Many H (None) /hpf Urine Mucus Many H (None) /hpf Disposition Clinical Impression: Urinary tract infection, Altered mental status Disposition: [facility] Time of Disposition: 22:52
[2016-05-18 21:11] LABS: Glucose,Whole Blood 80 mg/dL (75-99)
[2016-05-18 22:01] LABS: ALT 16 U/L (9-52); AST 11 U/L (14-36); Alkaline Phosphatase 65 U/L (38-126); Anion Gap 7 mmol/L; Blood Urea Nitrogen 17 mg/dL (7-17); Calcium 8.4 mg/dL (8.4-10.2); Carbon Dioxide 39 mmol/L (22-30); Chloride 90 mmol/L (98-107); Glucose 77 mg/dL (74-99); INR 1.3 (<1.1); Magnesium 1.6 mg/dL (1.6-2.3); Non-African American GFR(MDRD) >60 (>60 ml/min/1.73 sqM); Partial Thromboplastin Time 28.4 sec (22.0-30.0); Potassium 3.5 mmol/L (3.5-5.1); Prothrombin Time 12.7 sec (9.0-12.0); Sodium 136 mmol/L (137-145); Total Bilirubin 0.7 mg/dL (0.2-1.3); Total Protein 6.5 g/dL (6.3-8.2)
--- NOTE | 2016-05-18 22:04 | XR ---
EXAMINATION TYPE: XR chest 2V DATE OF EXAM: 05/18/2016 9:51 PM COMPARISON: 04/26/2016 HISTORY: Altered mental status. Difficulty breathing. TECHNIQUE: Frontal and lateral views of the chest are obtained. FINDINGS: There is no heart failure. There are no hilar masses. There are chest leads. There is poor inspiration. There is probably infiltrate in the right lower lobe posteriorly on the lateral view. T here is probably a small right pleural effusion. IMPRESSION: There is probably some right lower lobe pneumonia that is improved compared to last exam . No gross heart failure. Poor inspiration. Right pleural effusion is probably improved compared to l ast exam.
[2016-05-18 22:12] LABS: Anisocytosis Slight; Aty Lym Flag Marked; CH 35.9; HCT 29.3 % (34.0-46.0); HDW 3.86; HGB 9.3 gm/dL (11.4-16.0); Hypochromasia Slight; MCHC 31.9 g/dL (31.0-37.0); MCV 109.7 fL (80.0-100.0); Macrocytosis Marked; Mean Platelet Volume 7.7; Poikilocytosis Slight; RBC 2.67 m/uL (3.80-5.40); RDW 16.5 % (11.5-15.5); WBC 2.8 k/uL (3.8-10.6); WBC (Perox) 3.07
[2016-05-18 22:13] LABS: Creatine Kinase <20 U/L (30-135)
[2016-05-18 22:26] LABS: Creatine Kinase MB 0.3 ng/mL (0.0-2.4); Troponin I <0.012 ng/mL (0.000-0.034)
[2016-05-18 22:31] LABS: Appearance,Urine Turbid (Clear); Bacteria,Urine Many /hpf; Bilirubin,Urine Negative (Negative); Glucose,Urine (UA) Negative (Negative); Ketones,Urine 1+ (Negative); Leukocyte Esterase,Urine Large (Negative); Mucus,Urine Many /hpf; Nitrite,Urine Positive (Negative); Particle Count 267590; Protein,Urine 2+ (Negative); RBC,Urine 43 /hpf (0-5); Specific Gravity,Urine 1.017 (1.001-1.035); UA Billing (MACRO vs. MICRO) MICRO; WBC,Urine >182 /hpf (0-5)
[2016-05-18 22:48] LABS: Add Differential Manual Differential
[2016-05-18] MEDS ORDERED: LEVOFLOXACIN 750MG-D5W PMX 750 MG in DEXTROSE/WATER 1 150ML.BAG IVPB STA (22:48)
[2016-05-18 22:51] LABS: Nucleated Red Blood Cells 0 /100 WBC (0-0); Total Cells Counted 100
[2016-05-18 22:52] LABS: Manual Review Performed
[2016-05-18] MEDS ORDERED: SODIUM CHLORIDE 0.9% 1,000 ML IV ONE (22:52)
[2016-05-18] MEDS: LEVOFLOXACIN 750MG-D5W PMX 750 MG in DEXTROSE/WATER 1 150ML.BAG IVPB SCH (23:14)
[2016-05-19 00:39] VITALS: BMI 31.3
[2016-05-19 07:21] LABS: Glucose,Whole Blood 81 mg/dL (75-99)
[2016-05-19] MEDS: INSULIN LISPRO (humaLOG) 300 UNIT/3 ML VIAL SQ SCH ×4 (07:26→20:37)
[2016-05-19] MEDS: DIVALPROEX ER 500 MG TAB.ER.24H PO SCH ×2 (07:29→19:39)
[2016-05-19] MEDS ORDERED: LORazepam 1 MG TAB PO PRN (11:54)
[2016-05-19] MEDS ORDERED: MAGNESIUM HYDROXIDE 2,400 MG/10 ML CUP PO PRN (11:54)
[2016-05-19] MEDS ORDERED: ACETAMINOPHEN TAB 325 MG TAB PO PRN (11:54)
[2016-05-19] MEDS ORDERED: HYDROcodone/APAP 5-325MG 1 EACH TAB PO PRN (11:54)
[2016-05-19 12:06] LABS: Glucose,Whole Blood 88 mg/dL (75-99)
--- NOTE | 2016-05-19 16:12 | HP ---
DATE OF ADMISSION: 05/18/2016 PRESENTING COMPLAINT: Short of breath, lethargic. HISTORY OF PRESENTING COMPLAINT: This is a 60-year-old patient who is a resident of [facility] whose chronic stable medical conditions include congestive heart failure, hypertension, hyperlipidemia, seizure disorder. Patient stays at the [facility]. Patient was recently in the hospital and was discharged on 05/05/16. At that time she was found to have pneumonia from MSSA and also had a UTI from Enterococcus faecalis and actually was intubated. Patient also has chronic diabetes insipidus. At the time of discharge she was actually doing well, tolerating a diet, more awake. Patient presents this time with shortness of breath with ( ) had a fever of 102 on presentation. She was started on Levaquin for pneumonia. Patient also has significant lymphadenopathy; had a lymph node biopsy done and was followed by Dr. Adams. REVIEW OF SYSTEMS: CONSTITUTIONAL: Tired. HEENT: None. RESPIRATORY: Slight cough. CARDIOVASCULAR: None. GASTROINTESTINAL: None. GENITOURINARY: None. MUSCULOSKELETAL: Some pain in the joints. DERMATOLOGICAL: None. HEMATOLOGICAL: None. LYMPHATICS: None. PSYCHIATRY: History of schizophrenia. NEUROLOGICAL: None. PAST MEDICAL HISTORY: 1. Hypothyroidism. 2. Morbid obesity. 3. Chronic urinary incontinence. 4. Diabetes insipidus. 5. Lymphadenopathy; workup in place. 6. Schizophrenia. 7. Parkinson's-like symptoms due to medications. PAST SURGICAL HISTORY: Appendectomy. SOCIAL HISTORY: Patient is a resident of [facility]. No smoking. No alcohol. Never . FAMILY HISTORY: Father of a stroke in his 80s. Mother also of stroke in her 80s. Patient has a legal guardian. HOME MEDICATIONS: 1. Prednisone taper. 2. Luvox 50 mg p.o. b.i.d. 3. Senokot-S 1 tablet p.o. at bedtime. 4. Zantac 150 mg p.o. b.i.d. 5. Oxybutynin 5 mg p.o. b.i.d. 6. Olanzapine 20 mg p.o. at bedtime. 7. Magnesium oxide 400 mg p.o. daily. 8. Milk of Magnesia 2400 mg p.o. q.72 hours p.r.n. 9. Synthroid 88 mcg p.o. daily. 10. Ativan 1 mg p.o. q.6 p.r.n. 11. [place] 5 one tablet q.6 p.r.n. 12. Depakote ER 1000 mg p.o. at bedtime. 13. Depakote ER 500 mg p.o. daily. 14. DDAVP 0.4 mg p.o. at bedtime. ALLERGIES: ASPIRIN causing nausea, vomiting. PHYSICAL EXAMINATION: VITAL SIGNS ON PRESENTATION: Temperature 102.1 rectally, pulse 102, respiration 20, blood pressure 88/53, pulse ox 90% on 5 L. GENERAL APPEARANCE: Well built, BMI of 31.3. Sitting up, tired-appearing. EYES: Pupils equal. Conjunctivae normal. HEENT: External appearance of nose and ears normal. Oral cavity has dry mucous membrane. NECK: JVD not raised. Mass not palpable. RESPIRATORY: Effort increased. LUNGS: Diminished breath sounds. CARDIOVASCULAR: First and second sounds normal. No edema. ABDOMEN: Soft, nontender. Liver and spleen not palpable. LYMPHATIC: No lymph node palpable in neck or axillae. PSYCHIATRY: Patient is lethargic but able to answer questions. NEUROLOGICAL: Pupils equal. Cranial nerves grossly intact. Power and sensation grossly intact. INVESTIGATIONS: White count 2.8, hemoglobin 9.3, platelets 73, potassium 3.5. BUN 17, creatinine 0.35. UA positive. Chest x-ray showing some infiltrates. Patient had lymph node biopsy from 05/05/16 that shows benign reactive lymph node. ASSESSMENT: 1. Right lower lobe pneumonia; suspect Gram-negative organism causing sepsis. 2. Again acute hypoxic respiratory failure present on admission. 3. Hypothyroidism, chronic. 4. Chronic urinary incontinence. 5. Obesity; body mass index greater than 30. 6. Diabetes insipidus, chronic. 7. Acute metabolic encephalopathy from underlying sepsis, present on admission. 8. Thrombocytopenia, likely from sepsis. 9. Chronic schizophrenia. PLAN: Patient was started on Levaquin. Home medications are resumed. Will get opinion from Dr. Adams in view of the lymphadenopathy, though the lymph node biopsy was rather benign. Given a bit of a pancytopenia picture, wondering if the patient may need a bone marrow biopsy, though would have expected the lymph node to be more yielding.
[2016-05-19] MEDS: FAMOTIDINE 20 MG TAB PO SCH (16:20)
[2016-05-19] MEDS: OXYBUTYNIN CHLORIDE 5 MG TAB PO SCH (16:20)
[2016-05-19 16:46] LABS: Glucose,Whole Blood 124 mg/dL (75-99)
[2016-05-19] MEDS: SENNOSIDES-DOCUSATE SODIUM 1 EACH TAB PO SCH (19:38)
[2016-05-19] MEDS: OLANZapine 10 MG TAB PO SCH (19:39)
[2016-05-19] MEDS: DESMOPRESSIN 0.2 MG TAB PO SCH (19:39)
[2016-05-19 20:32] LABS: Glucose,Whole Blood 95 mg/dL (75-99)
[2016-05-19] MEDS: LEVOFLOXACIN 750MG-D5W PMX 750 MG in DEXTROSE/WATER 1 150ML.BAG IVPB SCH (22:24)
[2016-05-20] MEDS: LEVOTHYROXINE 88 MCG TAB PO SCH (05:56)
[2016-05-20 07:22] LABS: Glucose,Whole Blood 86 mg/dL (75-99)
[2016-05-20] MEDS: INSULIN LISPRO (humaLOG) 300 UNIT/3 ML VIAL SQ SCH ×4 (07:53→21:27)
[2016-05-20] MEDS: DIVALPROEX ER 500 MG TAB.ER.24H PO SCH ×2 (07:55→19:39)
[2016-05-20] MEDS: FAMOTIDINE 20 MG TAB PO SCH ×2 (07:55→16:03)
[2016-05-20] MEDS: MAGNESIUM OXIDE 400 MG TAB PO SCH (07:56)
[2016-05-20] MEDS: OXYBUTYNIN CHLORIDE 5 MG TAB PO SCH ×2 (07:56→16:03)
[2016-05-20 11:33] LABS: Glucose,Whole Blood 110 mg/dL (75-99)
[2016-05-20 17:26] LABS: Glucose,Whole Blood 83 mg/dL (75-99)
[2016-05-20] MEDS: OLANZapine 10 MG TAB PO SCH (19:37)
[2016-05-20] MEDS: SENNOSIDES-DOCUSATE SODIUM 1 EACH TAB PO SCH (19:39)
[2016-05-20] MEDS: DESMOPRESSIN 0.2 MG TAB PO SCH (19:39)
[2016-05-20 20:31] LABS: Glucose,Whole Blood 96 mg/dL (75-99)
--- NOTE | 2016-05-20 21:51 | PN ---
DATE OF SERVICE: 05/20/2016 PRESENTING COMPLAINT: Short of breath. INTERVAL HISTORY: This patient admitted with pneumonia. Less cough, more awake, did tolerate some diet. Lying in bed, less congested. Review of systems done for constitutional, cardiovascular, GI, pulmonary; relevant findings as above. Current medications include Levaquin. On examination, temperature 98.7, pulse 97, respirations 18, blood pressure 111/56, pulse ox 99% on 2L GENERAL APPEARANCE: Lying in bed, more awake. EYES: Pupils equal. Conjunctivae normal. NECK: JVD not raised. RESPIRATORY: Effort normal. LUNGS: Diminished breath sounds. CARDIOVASCULAR: First and second sounds normal. No edema. ABDOMEN: Soft, nontender. Liver and spleen not palpable. PSYCHIATRY: Awake, answering questions more appropriately. INVESTIGATIONS: Accu-Cheks are noted. ASSESSMENT: 1. Right lobe pneumonia, suspect gram-negative organism causing sepsis on presentation, improving. 2. Acute hypoxic respiratory failure, present on admission. 3. Hypothyroidism, chronic. 4. Chronic urinary incontinence. 5. Obesity, body mass index of greater than 30. 6. Diabetes insipidus, chronic. 7. Acute metabolic encephalopathy from underlying sepsis, present on admission, improved. 8. Thrombocytopenia, likely from sepsis. 9. Chronic schizophrenia. 10. Lymphadenopathy. Workup in place, but rather unremarkable lymph node biopsy. PLAN: Continue current medications and treatment plan. Follow.
[2016-05-20] MEDS: LEVOFLOXACIN 750MG-D5W PMX 750 MG in DEXTROSE/WATER 1 150ML.BAG IVPB SCH (22:05)
[2016-05-21] MEDS: LEVOTHYROXINE 88 MCG TAB PO SCH (05:35)
[2016-05-21 07:24] LABS: Aty Lym Flag Moderate; CH 35.3; CHCM 31.8; HCT 27.3 % (34.0-46.0); HDW 3.66; HGB 8.5 gm/dL (11.4-16.0); Hypochromasia Moderate; MCH 34.8 pg (25.0-35.0); MCHC 31.1 g/dL (31.0-37.0); MCV 111.7 fL (80.0-100.0); Macrocytosis Marked; Mean Platelet Volume 6.9; Poikilocytosis Slight; RBC 2.44 m/uL (3.80-5.40); RDW 15.8 % (11.5-15.5); WBC 2.7 k/uL (3.8-10.6)
[2016-05-21 07:37] LABS: Glucose,Whole Blood 99 mg/dL (75-99)
[2016-05-21] MEDS: INSULIN LISPRO (humaLOG) 300 UNIT/3 ML VIAL SQ SCH ×4 (07:43→20:51)
[2016-05-21 07:46] LABS: Anion Gap 4 mmol/L; Blood Urea Nitrogen 15 mg/dL (7-17); Calcium 8.1 mg/dL (8.4-10.2); Carbon Dioxide 39 mmol/L (22-30); Chloride 94 mmol/L (98-107); Glucose 73 mg/dL (74-99); Non-African American GFR(MDRD) >60 (>60 ml/min/1.73 sqM); Potassium 3.5 mmol/L (3.5-5.1); Sodium 137 mmol/L (137-145)
[2016-05-21] MEDS: DIVALPROEX ER 500 MG TAB.ER.24H PO SCH ×2 (08:04→19:15)
[2016-05-21] MEDS: OXYBUTYNIN CHLORIDE 5 MG TAB PO SCH ×2 (08:05→15:24)
[2016-05-21] MEDS: MAGNESIUM OXIDE 400 MG TAB PO SCH (08:05)
[2016-05-21] MEDS: FAMOTIDINE 20 MG TAB PO SCH ×2 (08:05→15:25)
[2016-05-21 11:33] LABS: Glucose,Whole Blood 85 mg/dL (75-99)
[2016-05-21 13:25] LABS: Add Differential Manual Differential
[2016-05-21 13:31] LABS: Band Neutrophils % 4.5 %; Nucleated Red Blood Cells 0 /100 WBC (0-0); Total Cells Counted 200
[2016-05-21 13:32] LABS: Manual Review Performed; Polychromasia Present
[2016-05-21 17:33] LABS: Glucose,Whole Blood 85 mg/dL (75-99)
[2016-05-21] MEDS: DESMOPRESSIN 0.2 MG TAB PO SCH (19:15)
[2016-05-21] MEDS: OLANZapine 10 MG TAB PO SCH (19:15)
[2016-05-21] MEDS: SENNOSIDES-DOCUSATE SODIUM 1 EACH TAB PO SCH (19:16)
--- NOTE | 2016-05-21 20:09 | P.CONS ---
History of Present Illness - Reason for Consult Consult date: 05/21/16 - History of Present Illness The patient is a 70-year-old lady with multiple medical issues, reccently seen in consult on 04/26/16. She is an [facility] resident. The patient was noted by the [facility] staff, to be somewhat lethargic, with decreased responsiveness over the last few days. The changes were progressive in nature. The patient then became unresponsive. She was brought into the emergency room and admitted on 04/24/16. It was felt that she could not protect her airway , and was therefore intubated and transferred to the ICU. The brain without contrast was negative. A chest x-ray did not show any major findings. On admission the patient's hemoglobin was in the 7 range and subsequently fell to 6. She received 2 units of blood with no major improvement in the hemoglobin. After an additional unit, hemoglobin improvement to the 7 range. No overt bleeding was noted. The patient's hemoglobin, since 02/24, has remained in the 10-11 range. Prior to that had actually were normal. On 04/30/2016, her platelets had been normal. On this admission, platelet count was 123 and subsequently has fallen to 70,000 today. Her WBC was elevated in the 12-16 range. The consult was placed for further evaluation and recommendations. Previous labs and records and the EHR were reviewed. MCV has been elevated, and the low 100 range. Intermittent leukopenia was also seen. In 02/24, the patient had a diagnosis of atypical pneumonia, and a drop in counts associated with the same It was felt that the cytopenias were due to underlying marrow dysfunction from depakote effect, with additional suppression from sepsis, as her w/u revealed pneumonia and UTI. Her cytopenia labs were negative ( other than a non specific AMARA positivity at 1:80), and counts did start to recover, by discharge. O/E she was noted to have rt SC adenopathy. CT CAP revealed extensive adenopathy. Surgery were consulted and biopsied 2 nodes ( 2.6 and 1.4 cm) from the rt axilla. She was then discharged back to the [facility]. She was brought back to the ER as she developed a fever of 102, with increased SOB, and decreased responsiveness. Her CXR revealed RLL pneumonitis, improved from before. UA was again abnormal. Hgb was improved to 9.3 on 05/18/16, and was 8.5 on admission. Plt had normalised by discharge to 157, and were down again to 73 on this admission. WBC was normal on discharge, and has dropped to 2.4. Her node biopsy revealed a benign reactive node, with flow also negative. Consult was placed for further evaluation. Review of Systems Constitutional: Reports fever, Reports poor appetite, Reports weakness Eyes: denies blurred vision, denies pain Ears: deny: decreased hearing, ear discharge, earache, tinnitus Ears, nose, mouth and throat: Denies headache, Denies sore throat Cardiovascular: Reports shortness of breath Respiratory: Reports dyspnea Gastrointestinal: Denies abdominal pain, Denies diarrhea, Denies nausea, Denies vomiting Genitourinary: Reports as per HPI Menstruation: Reports postmenopausal Musculoskeletal: Reports muscle weakness Integumentary: Denies pruritus, Denies rash Neurological: Reports change in mentation, Reports weakness Psychiatric: Reports confusion Endocrine: Reports fatigue Hematologic/Lymphatic: Reports lymphadenopathy Past Medical History Past Medical History: Asthma, Diabetes Mellitus, Hyperlipidemia, Hypertension, Thyroid Disorder Additional Past Medical History / Comment(s): Parkinson's -like symptoms due to medication, diabetes insipidus. History of Any Multi-Drug Resistant Organisms: None Reported Past Surgical History: Appendectomy Additional Past Surgical History / Comment(s): Additional Medical Hx: Parkinson' s Disease; Additional Past Anesthesia/Blood Transfusion Reaction / Comm: Unknown Past Psychological History: Schizophrenia Additional Psychological History / Comment(s): Patient receives outpatient counselling and sees Dr. Muse. Smoking Status: Never smoker Past Alcohol Use History: None Reported Additional Past Alcohol Use History / Comment(s): Patient denies any history of smoking, medical marijuana or marijuana use or alcohol use. Patient is single and has no children. Past Drug Use History: None Reported - Past Family History Father Family Medical History: CVA/TIA Additional Family Medical History / Comment(s): Patient father in his 80s from his stroke and also her mother in her 80s from a stroke. She has one brother and 2 sisters which she has no contact with. Patient has a guardian. Medications and Allergies Home Medications Medication Instructions Recorded Confirmed Type Magnesium Oxide [Mag-Ox] 400 mg PO DAILY@0800 06/24/14 05/18/16 History Acetaminophen Tab [Tylenol] 325 mg PO DAILY PRN 02/24/16 05/18/16 History Divalproex ER [Depakote ER] 1,000 mg PO HS@199902/24/16 05/18/16 History Divalproex ER [Depakote ER] 500 mg PO DAILY@0800 02/24/16 05/18/16 History OLANZapine 20 mg PO HS@199902/24/16 05/18/16 History Oxybutynin Chloride 5 mg PO BID@0800,1600 02/24/16 05/18/16 History fluvoxaMINE [Luvox] 50 mg PO BID@0800,1500 02/24/16 05/18/16 History Magnesium Hydroxide [Milk of 2,400 mg PO Q72H PRN 04/24/16 05/18/16 History Magnesia] Sennosides-Docusate Sodium 1 tab PO HS 04/24/16 05/18/16 History [Senokot-S] Desmopressin [Ddavp] 0.4 mg PO HS@199905/18/16 05/18/16 History HYDROcodone/APAP 5-325MG [[place] 1 tab PO Q6HR PRN 05/18/16 05/18/16 History 5-325] Levothyroxine Sodium [Synthroid] 88 mcg PO DAILY@0500 05/18/16 05/18/16 History Ranitidine HCl 150 mg PO BID@0800,1600 05/18/16 05/18/16 History predniSONE See Taper PO DAILY 05/18/16 05/18/16 History Allergies Allergy/AdvReac Type Severity Reaction Status Date / Time aspirin AdvReac Nausea & Verified 05/18/16 21:08 Vomiting Physical Exam Vitals: Vital Signs Temp Pulse Pulse Resp BP Pulse Ox 05/21/16 15:00 98.2 F 101 H 18 122/63 97 05/21/16 07:00 98.7 F 104 H 18 102/58 92 L 05/20/16 22:26 98.1 F 103 H 18 132/65 100 Intake and Output 05/21/16 05/21/16 05/21/16 06:59 14:59 22:59 Intake Total 160 Balance 160 Intake: IV 160 0.9@ 20 160 Oral Other: Voiding Method Incontinent Incontinent # Voids 3 2 Weight - Constitutional General appearance: mild distress - EENT Eyes: EOMI, PERRLA ENT: hearing grossly normal, normal oropharynx - Neck Neck: lymphadenopathy (rt medial SC adenopathy 3 cm) Carotids: right: upstroke bounding - Respiratory Respiratory: bilateral: diminished - Cardiovascular Rhythm: regular Heart sounds: normal: S1, S2 - Gastrointestinal General gastrointestinal: normal bowel sounds, soft - Integumentary Integumentary: normal - Neurologic Decreased responsiveness. Arousable, able to obey commands partially Neurologic: CNII-XII intact - Musculoskeletal Musculoskeletal: generalized weakness, strength equal bilaterally - Psychiatric As above Results Results: Histo Pathology report and flow cytometry report reviewed CBC & Chem 7: 05/21/16 07:03 05/21/16 07:03 Labs: Abnormal Lab Results - Last 24 Hours (Table) 05/21/16 05/21/16 Range/Units 07:03 07:03 WBC 2.7 L (3.8-10.6) k/uL RBC 2.44 L (3.80-5.40) m/uL Hgb 8.5 L (11.4-16.0) gm/dL Hct 27.3 L (34.0-46.0) % MCV 111.7 H (80.0-100.0) fL RDW 15.8 H (11.5-15.5) % Plt Count 75 L (150-450) k/uL Neutrophils # (Manual) 1.2 L (1.3-7.7) k/uL Chloride 94 L (98-107) mmol/L Carbon Dioxide 39 H (22-30) mmol/L Creatinine 0.33 L (0.52-1.04) mg/dL Glucose 73 L (74-99) mg/dL Calcium 8.1 L (8.4-10.2) mg/dL Chest x-ray: report reviewed Assessment and Plan (1) Pancytopenia Narrative/Plan: At this time, the original clinical impression , of a mildly hypofunctional marrow due to Depakote effect, with added suppression due to sepsis, appears to be most likely, given improvement in her counts occurring by the time of her last discharge, and negative extensive labs. Thus the current drop is again felt to be due to her recurrent infection. Currently counts are in a safe range. We will continue to monitor, with supplementation as needed. The case was extensively d/w the admitting service, re a possible bone marrow exam, for her cytopenias, and also to w/u her adenopathy. However, given the pattern of her counts, the above explanation is more likely. At this therefore, we will hold off on the same. Status: Acute (2) Adenopathy Narrative/Plan: The course was as noted in the HPI. Case was d/w the admitting sevice as mentioned. The adenopathy was felt to be an incidental finding , as her counts improved previously with treatment of her infection. The biopsy, which was quite satisfactory, showed a benign reactive node. An adequate node biopsy would have much higher yield for w/u of her adenopathy, than a bone marrow in these circumstances. Lab w/u for adenopathy ( essentially the same as for cytopenias) was unrevealing. Depakote can cause adenopathy, but rarely, and generally only in association with hypersensitivity reactions, which the pt has no evidence of. I will check an NATALIE level. We might need to consider a repeat biopsy from a different site, once the pt is more stable. Status: Acute
[2016-05-21 20:31] LABS: Glucose,Whole Blood 84 mg/dL (75-99)
[2016-05-21] MEDS: LEVOFLOXACIN 750MG-D5W PMX 750 MG in DEXTROSE/WATER 1 150ML.BAG IVPB SCH (23:31)
[2016-05-22] MEDS: LEVOTHYROXINE 88 MCG TAB PO SCH (05:26)
[2016-05-22 07:23] LABS: Glucose,Whole Blood 127 mg/dL (75-99)
[2016-05-22] MEDS: INSULIN LISPRO (humaLOG) 300 UNIT/3 ML VIAL SQ SCH ×4 (07:44→20:58)
[2016-05-22 08:08] LABS: Aty Lym Flag Slight; CH 35.3; CHCM 31.7; HCT 27.8 % (34.0-46.0); HDW 3.61; HGB 8.7 gm/dL (11.4-16.0); Hypochromasia Moderate; MCH 35.3 pg (25.0-35.0); MCHC 31.5 g/dL (31.0-37.0); Macrocytosis Marked; Mean Platelet Volume 6.8; Poikilocytosis Slight; RBC 2.48 m/uL (3.80-5.40); RDW 15.6 % (11.5-15.5); WBC 2.5 k/uL (3.8-10.6); WBC (Perox) 2.65
[2016-05-22 08:24] LABS: Blood Urea Nitrogen 13 mg/dL (7-17); Calcium 8.1 mg/dL (8.4-10.2); Chloride 92 mmol/L (98-107); Glucose 70 mg/dL (74-99); Non-African American GFR(MDRD) >60 (>60 ml/min/1.73 sqM); Potassium 3.5 mmol/L (3.5-5.1); Sodium 136 mmol/L (137-145)
[2016-05-22 08:30] LABS: Anion Gap 3 mmol/L
--- NOTE | 2016-05-22 08:31 | PN ---
DATE OF SERVICE: 05/21/2016 PRESENTING COMPLAINT: Short of breath. INTERVAL HISTORY: The patient admitted with pneumonia. Some cough is present. Tolerating a diet. Tired. Review of systems done for constitutional, cardiovascular, GI, pulmonary; relevant findings as above. Current medications include IV Levaquin. On examination, temperature 98.2, pulse 101, respiration 18, blood pressure 120/63, pulse ox 97% on 2 liters. GENERAL APPEARANCE: Lying in bed, awake. EYES: Pupils equal. Conjunctivae normal. NECK: JVD not raised. Mass not palpable. RESPIRATORY: Effort normal. LUNGS: Diminished breath sounds. CARDIOVASCULAR: First and second sounds normal. No edema. ABDOMEN: Soft, nontender. Liver and spleen not palpable. PSYCHIATRY: Awake, answering simple questions. INVESTIGATIONS: White count 2.7, hemoglobin 8.5, and platelets 75, potassium 3.5. ASSESSMENT: 1. Right lower lobe pneumonia, suspect gram negative organism causing sepsis on presentation with some improvement. 2. Acute hypoxic respiratory failure, present on admission from pneumonia. 3. Hypothyroidism, chronic. 4. Chronic urinary incontinence. 5. Obesity; body mass index greater than 30. 6. Diabetes insipidus chronic. 7. Acute metabolic encephalopathy from ( ) present on admission, improved. 8. Pancytopenia could be from sepsis. 9. Chronic schizophrenia. 10. Lymphadenopathy. Work-up in place with Dr. Adams. PLAN: Continue current medication and treatment plan. Supportive care. Antibiotics will continue. Given the lymph node biopsy negative, the patient may need a bone marrow biopsy to explain her pancytopenia which itself could be from sepsis at this point. Repeat labs in the morning. Follow.
[2016-05-22 08:42] LABS: Carbon Dioxide 41 mmol/L (22-30)
[2016-05-22] MEDS: OXYBUTYNIN CHLORIDE 5 MG TAB PO SCH ×2 (08:45→15:37)
[2016-05-22] MEDS: DIVALPROEX ER 500 MG TAB.ER.24H PO SCH ×2 (08:45→20:06)
[2016-05-22] MEDS: FAMOTIDINE 20 MG TAB PO SCH ×2 (08:45→15:37)
[2016-05-22] MEDS: MAGNESIUM OXIDE 400 MG TAB PO SCH (08:45)
[2016-05-22 10:21] LABS: Add Differential Manual Differential
[2016-05-22 10:30] LABS: Manual Review Performed; Nucleated Red Blood Cells 0 /100 WBC (0-0); Total Cells Counted 200
[2016-05-22 12:10] LABS: Glucose,Whole Blood 96 mg/dL (75-99)
[2016-05-22 16:45] LABS: Glucose,Whole Blood 82 mg/dL (75-99)
[2016-05-22] MEDS: DESMOPRESSIN 0.2 MG TAB PO SCH (20:05)
[2016-05-22] MEDS: OLANZapine 10 MG TAB PO SCH (20:06)
[2016-05-22] MEDS: SENNOSIDES-DOCUSATE SODIUM 1 EACH TAB PO SCH (20:07)
[2016-05-22 20:31] LABS: Glucose,Whole Blood 60 mg/dL (75-99)
[2016-05-22] MEDS ORDERED: SODIUM CHLORIDE 0.9% 1,000 ML IV SCH (20:45)
[2016-05-22] MEDS ORDERED: LEVOFLOXACIN 750 MG TAB PO SCH (21:00)
[2016-05-22] MEDS: acetaZOLAMIDE 250 MG TAB PO SCH (21:05)
[2016-05-22 21:14] LABS: Glucose,Whole Blood 62 mg/dL (75-99)
[2016-05-22 21:45] LABS: Glucose,Whole Blood 82 mg/dL (75-99)
[2016-05-23] MEDS: LEVOTHYROXINE 88 MCG TAB PO SCH (05:07)
[2016-05-23 07:09] LABS: Glucose,Whole Blood 76 mg/dL (75-99)
[2016-05-23 07:18] LABS: HIV-1/HIV-2 Ab Screen NONREAC (NON REAC)
[2016-05-23 07:40] VITALS: RESP 20
[2016-05-23 07:59] LABS: Anion Gap 6 mmol/L; Blood Urea Nitrogen 11 mg/dL (7-17); Calcium 8.1 mg/dL (8.4-10.2); Carbon Dioxide 38 mmol/L (22-30); Chloride 92 mmol/L (98-107); Glucose 66 mg/dL (74-99); Non-African American GFR(MDRD) >60 (>60 ml/min/1.73 sqM); Potassium 3.5 mmol/L (3.5-5.1); Sodium 136 mmol/L (137-145)
[2016-05-23] MEDS: FAMOTIDINE 20 MG TAB PO SCH ×2 (08:23→15:10)
[2016-05-23] MEDS: DIVALPROEX ER 500 MG TAB.ER.24H PO SCH (08:23)
[2016-05-23] MEDS: MAGNESIUM OXIDE 400 MG TAB PO SCH (08:23)
[2016-05-23] MEDS: OXYBUTYNIN CHLORIDE 5 MG TAB PO SCH ×2 (08:24→15:10)
[2016-05-23] MEDS: acetaZOLAMIDE 250 MG TAB PO SCH ×2 (08:25→15:05)
[2016-05-23] MEDS: INSULIN LISPRO (humaLOG) 300 UNIT/3 ML VIAL SQ SCH ×3 (08:26→17:45)
--- NOTE | 2016-05-23 09:42 | PN ---
DATE OF SERVICE: 05/22/2016 PRESENTING COMPLAINT: Short of breath. INTERVAL HISTORY: The patient admitted with pneumonia. Cough is improving. Feels better. States she wants to go back. Continues to feel tired. No sputum. Review of systems done for constitutional, cardiovascular, GI, pulmonary; relevant findings as above. Current medications are reviewed that include Levaquin. On examination, temperature 98.1, pulse 99, respiration 18, blood pressure 111/64, pulse ox 98% on 3 L. GENERAL APPEARANCE: Lying in bed, tired appearing. EYES: Pupils equal. Conjunctivae normal. NECK: JVD not raised. Mass not palpable. RESPIRATORY: Effort normal. LUNGS: Diminished breath sounds. CARDIOVASCULAR: First and second sounds normal. No edema. ABDOMEN: Soft, nontender. Liver and spleen not palpable. PSYCHIATRY: Awake, answering simple questions. NEUROLOGICAL: Able to move both lower legs, some sensation is present. INVESTIGATIONS: White count 2.5, hemoglobin 8.7, platelets 79. Potassium 3.5. Bicarb 41. ASSESSMENT: 1. Right lower lobe pneumonia, suspect gram negative organism causing sepsis on presentation with clinical improvement. 2. Acute hypoxic respiratory failure present on admission from pneumonia, improving. 3. Hypothyroidism, chronic. 4. Chronic urinary incontinence. 5. Obesity, body mass index greater than 30. 6. Diabetes insipidus, chronic. 7. Acute metabolic encephalopathy from sepsis present on admission, improved. 8. Pancytopenia, could be from sepsis. 9. Chronic schizophrenia. 10. Lymphadenopathy, probably reactive as the lymph node was negative per Dr. Adams. No further workup at the present time. PLAN: Patient overall doing much better. Patient is rather alkalotic. Will add some Diamox.
[2016-05-23 11:13] LABS: Glucose,Whole Blood 147 mg/dL (75-99)
[2016-05-23 15:35] VITALS: BP 94/56; PULSE 93; TEMP 98
[2016-05-23 16:49] LABS: Glucose,Whole Blood 85 mg/dL (75-99)
--- NOTE | 2016-05-23 16:49 | DS ---
DATE OF ADMISSION: 05/18/2016 DATE OF DISCHARGE: FINAL DIAGNOSES: 1. Right lobe pneumonia, suspect gram-negative organism causing sepsis on presentation with clinical improvement. 2. Acute hypoxic respiratory failure, present on admission from pneumonia. 3. Hypothyroidism, chronic. 4. Chronic urinary incontinence. 5. Obesity, body mass index greater than 30. 6. Diabetes insipidus chronic. 7. Acute metabolic encephalopathy from sepsis, present on admission. 8. Pancytopenia could be from sepsis. 9. Chronic schizophrenia. 10. Lymphadenopathy, likely reactive. CONSULTATION: Dr. Adams from hematology. HOSPITAL COURSE: This patient presented with pneumonia with sepsis. Put on Levaquin to which she responded well. Patient's urine did grow ESBL Escherichia coli felt to be colonization and patient really did well on Levaquin for pneumonia with normal white count and afebrile at the time of discharge. Hence, the Escherichia coli is not being further treatment. On examination: Patient is awake, answered question, but dozes off easily. Patient given the short course of Diamox for metabolic alkalosis. Overall prognosis is guarded. DISCHARGE MEDICATIONS: 1. Magnesium oxide 400 mg p.o. daily. 2. Tylenol 325 mg p.o. daily p.r.n. 3. Depakote ER 1000 mg p.o. q.h.s. 4. Depakote ER 500 mg in the morning. 5. Olanzapine 20 mg p.o. q.h.s. 6. Oxybutynin 5 mg p.o. b.i.d. 7. Luvox 50 mg p.o. b.i.d. 8. Milk of magnesia 2500 mg p.o. q.72 hours p.r.n. 9. Senokot-S 1 tablet p.o. q.h.s. 10. Ativan 1 mg p.o. q.6 p.r.n. 11. DDAVP 0.4 mg p.o. q.h.s. 12. Synthroid 88 mcg p.o. daily. 13. Zantac 150 mg p.o. b.i.d. 14. [place] 5, 1 tablets q.6 p.r.n. 15. Diamox 250 mg p.o. b.i.d. for 10 tablets. DISPOSITION: [facility]. Follow-up with Dr. Joe. NOTE: The patient finished a course of antibiotics.
[2016-05-25 09:22] LABS: Mis test requested (Blood) HgbA1c Confirm
== END 2016-05-23 20:00 | DRG 871 ==
LOC: EC 21:00 → 5MS5E 22:53
PROVIDERS: ADMIT Hospitalist; ATTEND Hospitalist
DX: A41.9 Sepsis, unspecified organism (principal); G93.41 Metabolic encephalopathy; J96.01 Acute respiratory failure with hypoxia; E23.2 Diabetes insipidus; D61.818 Other pancytopenia; I11.0 Hypertensive heart disease with heart failure; I50.9 Heart failure, unspecified; J18.9 Pneumonia, unspecified organism; E03.9 Hypothyroidism, unspecified; E11.9 Type 2 diabetes mellitus without complications; E78.00 Pure hypercholesterolemia, unspecified; E78.5 Hyperlipidemia, unspecified; F20.9 Schizophrenia, unspecified; G20 Parkinson's disease; G40.909 Epilepsy, unspecified, not intractable, without status epilepticus; J45.909 Unspecified asthma, uncomplicated; R32 Unspecified urinary incontinence; Z82.3 Family history of stroke; E66.01 Morbid (severe) obesity due to excess calories; Z79.899 Other long term (current) drug therapy; Z68.31 Body mass index [BMI] 31.0-31.9, adult
CPT/HCPCS: 36415; 51702; 71020; 80048; 80053; 81001; 82164; 82550; 82553; 83036; 83605; 83735; 83880; 84439; 84484; 85025; 85610; 85730; 87040; 87077; 87086; 87186; 87389; 93005; 94760; 96365; 99285